=== PATIENT | male | born 1980 | race Caucasian/White ===

== ENCOUNTER 2019-08-17 08:02 | Emergency (ER) | payer OTHER, SELFPAY ==
[2019-08-17 08:08] VITALS: BP 132/89; PULSE 102; RESP 18; TEMP 36.6; O2SAT 96
--- NOTE | 2019-08-17 09:10 | DI.US.S_ITS ---
PROCEDURE: US SCROTUM INDICATIONS: RIGHT TESTICULAR PAIN TECHNIQUE: Real-time scanning was performed of the scrotum and testicles, with image documentation. Color and pulse Doppler interrogation was performed of both testicles. COMPARISON: None. FINDINGS: Right: Testicle is normal in size at 5 x 2.7 x 3.4 cm, and homogenous in echotexture. Numerous punctate calcifications are seen scattered in right testes. Epididymis is normal in overall size and morphology. There is small right hydrocele. No varicoceles. Overlying scrotal skin is normal in thickness. Left: Testicle is normal in size at 4.8 x 2.8 x 3.7 cm, and homogeneous in echotexture. Numerous punctate calcifications are also noted scattered in the left testicular parenchyma. Epididymis is normal in overall size and morphology. There is small left hydrocele. No varicoceles. Overlying scrotal skin is normal in thickness. Doppler: Color and pulse Doppler demonstrate normal and symmetric arterial flow in both testicles. IMPRESSION: 1. No evidence of testicular torsion. No solid-appearing testicular lesion. 2. Small to moderate amount of bilateral hydrocele. 3. Tiny punctate calcifications scattered in bilateral testicular parenchyma. Finding may indicate prior infection/injury. Dictated by: Won Diaz M.D. on 08/17/2019 at 9:54 Approved by: Won Diaz M.D. on 08/17/2019 at 10:05
--- NOTE | 2019-08-17 09:15 | ED.ABDPAIN ---
HPI - Abdominal Pain General Chief Complaint: Abdominal Pain Stated Complaint: groin/abdominal pain Time Seen by Provider: 08/17/19 08:10 Source: patient Mode of arrival: Ambulatory History of Present Illness HPI narrative: Patient comes emergency department complaining of right inguinal pain. He states this has been creeping up again over the last couple of weeks, he has had a prior hernia repair on that side. Patient states that he does work out, and that he has some degree of lifting at his job. However, he has not done more of any of this than he usually would. Patient denies other symptoms of illness. No diarrhea, dysuria, fevers, nausea, vomiting, or blood in stools. No blood in his urine. No back pain. No other complaints at this time. Related Data Home Medications Medication Instructions Recorded Confirmed lisinopril 10 mg PO QDAY #0 tab 07/13/16 ranitidine HCl 150 mg PO BID #0 cap 07/24/16 duloxetine [Cymbalta] 20 mg PO DAILY #0 01/04/17 08/17/19 cholecalciferol (vitamin D3) #0 02/08/17 [Vitamin D3] Allergies Allergy/AdvReac Type Severity Reaction Status Date / Time tramadol [TRAMADOL] Allergy Unknown Nightmare Unverified 08/17/19 08:12 Review of Systems Constitutional Constitutional: Denies chills, Denies fatigue, Denies fever(s), Denies frequent falls, Denies lethargy and Denies weakness Eyes Eyes: Denies change in vision, Denies eye discharge, Denies irritation and Denies loss of vision ENT Ears, Nose, Mouth, and Throat: Denies change in voice, Denies dizziness, Denies neck pain, Denies sore throat and Denies throat swelling Cardiovascular Cardiovascular: Denies chest pain, Denies irregular heart rhythm, Denies lightheadedness, Denies palpitations, Denies dyspnea, Denies dyspnea on exertion and Denies orthopnea Respiratory Respiratory: Denies cough, Denies dyspnea, Denies dyspnea on exertion and Denies wheezing Gastrointestinal Gastrointestinal: Denies abdominal pain, Denies change in bowel habits, Denies diarrhea, Denies nausea and Denies vomiting Genitourinary Genitourinary: Denies hematuria, Denies flank pain, Reports scrotal swelling (Chronic), Denies urinary incontinence and Denies urinary urgency Comments: Right testicular pain Musculoskeletal Musculoskeletal: Denies back pain, Denies muscle weakness, Denies neck pain, Denies numbness and Denies tingling Integumentary/Breasts Skin/Breast: Denies pruritus, Denies erythema, Denies rash and Denies wounds Neurologic Neurologic: Denies behavioral changes, Denies confusion, Denies dizziness, Denies frequent falls, Denies loss of vision, Denies numbness, Denies tingling and Denies weakness Psychiatric Psychiatric: Denies anxiety, Denies behavioral changes, Denies confusion, Denies depression, Denies homicidal ideation and Denies suicidal ideation Endocrine Endocrine: Denies fatigue, Denies flushing and Denies palpitations Hematologic/Lymphatic Hematologic/Lymphatic: Denies easy bruising Allergic/Immunologic Allergic/Immunologic: Denies urticaria, Denies throat swelling and Denies wheezing Patient History Medical History (Updated 08/17/19 @ 11:13 by Zahra Young MD) Back pain (Acute) Cervical strain, acute (Inactive) Hydrocele (Acute) Inguinal hernia recurrent unilateral (Acute) Neck pain, musculoskeletal (Acute) Prostatitis (Acute) Right epididymitis (Acute) RLQ abdominal pain (Acute) Rupture of left tympanic membrane (Inactive) Testicular pain, right (Acute) Surgical History H/O hernia repair (Acute) Social History Smoking Status: Former smoker tobacco type: vaping Substance Use Type: marijuana Exam Initial Vital Signs Initial Vital Signs: Vital Signs Temperature 97.8 F 08/17/19 08:08 Pulse Rate 102 H 08/17/19 08:08 Respiratory Rate 18 08/17/19 08:08 Blood Pressure 132/89 08/17/19 08:08 Pulse Oximetry 96 08/17/19 08:08 Const General: cooperative and well developed Nutritional Appearance: well nourished Orientation: alert, awake, oriented x3 and not confused [facility] Head: normocephalic and atraumatic Ears: external ears normal Nose: external nose normal and No nasal discharge Face and sinus: face symmetric and No dry mucous membranes Mouth: oral mucosae normal and moist mucous membranes Teeth and gingiva: dentition normal Eyes General: appearance normal, both eyes and all related structures Eyelids: eyelids normal Conjunctivae: conjunctivae normal Sclera: sclerae normal Pupils: PERRL EOM: EOM intact bilaterally Neck Neck: normal visual inspection, trachea midline, No lymphadenopathy, No midline deformity and No JVD Lymphatic: No lymphedema Chest Chest: normal inspection of the chest Resp Effort & Inspection: normal respiratory effort, able to speak in complete sentences, no respiratory distress and no use of accessory muscles Auscultation: clear to auscultation bilaterally, no rales, no rhonchi and no wheezes Cardio Rate: regular rate Rhythm: regular rhythm Heart Sounds: no click, no gallops, no murmurs and no rubs Pulses: normal peripheral pulses GI Inspection: non-distended Palpation: soft, no hepatosplenomegaly, No guarding, No pulsatile mass and No tender Auscultation: normal bowel sounds Back/Spine/Pelvis Back: No CVA tenderness Cervical Spine: cervical ROM normal and No pain with cervical ROM Thoracic/Lumbar Spine: thoracic and lumbar spine normal to inspection Skin General: no rashes or lesions noted, No jaundice and No petechiae Neuro General: alert, oriented x3, gait normal and no focal motor deficits Speech: speech normal Extrem General: full ROM, no clubbing, cyanosis or edema, no pedal edema and no calf tenderness Psych Appearance: well kempt Mental Status: mental status grossly normal Attitude: cooperative Thought Content: normal and suicidality Judgment: judgment good Course Course Course Narrative: Patient was evaluated in the emergency department with urinalysis and with an ultrasound of his scrotum/testicles. This did show hydrocele and varicocele without evidence of a hernia. I did discuss with the patient that at this point in time there is no evidence of an active hernia. However, it is possible that the fibers are tearing in that he is in the early stages of reforming a hernia. The best approach at this point is for the patient to avoid heavy lifting or straining the area. I have discussed with him that it is possible that the inflammation will down that the fibers will heal. However, if his symptoms continue to get worse, or he begins noting swelling or bulging, he should follow up with surgery, whose contact information I have given him. Orders Ordered: ED Orders 08/17/19 09:10 US scrotum Stat Vital Signs Vital signs: Vital Signs - 8 hr 08/17/19 08:08 Temperature 97.8 F Pulse Rate 102 H Respiratory Rate 18 Blood Pressure 132/89 Pulse Oximetry 96 MDM - Abdominal Pain Medical Records Attestation: I reviewed the patient's medical records. Lab Data Attestation: I reviewed the patient's lab results. Point of care testing: Urine Dip Bedside Urine Glucose Negative Bedside Urine Bilirubin - Negative Bedside Urine Ketone - Negative Urine Specific Millis 1.020 Bedside Urine Occult Blood - Negative Bedside Urine pH 6.0 Bedside Urine Protein - Negative Bedside Urine Urobilinogen - Negative Bedside Urine Nitrite - Negative Bedside Urine Leukocytes - Negative Esterase Imaging Data Ultrasound scrotum: Radiologist's impression: ROCEDURE: US SCROTUM INDICATIONS: RIGHT TESTICULAR PAIN TECHNIQUE: Real-time scanning was performed of the scrotum and testicles, with image documentation. Color and pulse Doppler interrogation was performed of both testicles. COMPARISON: None. FINDINGS: Right: Testicle is normal in size at 5 x 2.7 x 3.4 cm, and homogenous in echotexture. Numerous punctate calcifications are seen scattered in right testes. Epididymis is normal in overall size and morphology. There is small right hydrocele. No varicoceles. Overlying scrotal skin is normal in thickness. Left: Testicle is normal in size at 4.8 x 2.8 x 3.7 cm, and homogeneous in echotexture. Numerous punctate calcifications are also noted scattered in the left testicular parenchyma. Epididymis is normal in overall size and morphology. There is small left hydrocele. No varicoceles. Overlying scrotal skin is normal in thickness. Doppler: Color and pulse Doppler demonstrate normal and symmetric arterial flow in both testicles. IMPRESSION: 1. No evidence of testicular torsion. No solid-appearing testicular lesion. 2. Small to moderate amount of bilateral hydrocele. 3. Tiny punctate calcifications scattered in bilateral testicular parenchyma. Finding may indicate prior infection/injury. Dictated by: Won Diaz M.D. on 08/17/2019 at 9:54 Approved by: Won Diaz M.D. on 08/17/2019 at 10:05 Discharge Plan Departure Patient Disposition: Home Clinical Impression: Bilateral hydrocele, Pain in right testicle Discharge Date/Time: 08/17/19 11:32 Instructions: DI for Testicular Pain, DI for Hydrocele-Adult Activity Restrictions/Additional Instructions: Your ultrasound shows bilateral hydroceles, but no current evidence of a hernia, and your testicles otherwise look good. There is no evidence of an infection at this time, either. Please follow up with Urology and General surgery for further evaluation your symptoms. Prescriptions: No Action lisinopril 10 MG tablet 10 mg PO QDAY Qty: 0 RF: 0 ranitidine HCl 150 MG capsule 150 mg PO BID Qty: 0 RF: 0 duloxetine [Cymbalta] 20 mg capsule,delayed release(DR/EC) 20 mg PO DAILY Qty: 0 RF: 0 cholecalciferol (vitamin D3) [Vitamin D3] 2,000 unit capsule Qty: 0 RF: 0 Referrals: Obed Marques [Primary Care Provider] -
--- NOTE | 2019-08-17 09:15 | PC.NURSE ---
stand by exam of scrotum. Tenderness with palpation of right testicle and scrotum. Some swelling noted.
[2019-08-17 10:18] VITALS: BP 122/78; PULSE 61; RESP 15; O2SAT 100
== END 2019-08-17 11:32 | disposition home or self-care (01) ==
PROVIDERS: Emergency Provider Emergency Medicine; Family Provider Physician Assistant; PCP Physician Assistant
DX: N43.3 Hydrocele, unspecified (principal); N50.811 Right testicular pain; Z98.890 Other specified postprocedural states
CPT/HCPCS: 76870; 81003; 99283

== ENCOUNTER 2019-11-09 18:23 | Emergency (ER) | payer OTHER, SELFPAY ==
[2019-11-09 18:41] VITALS: BP 136/75; PULSE 83; RESP 18; TEMP 36.4; O2SAT 99
--- NOTE | 2019-11-09 18:45 | DI.RAD.S_ITS ---
PROCEDURE: XR CHEST 2V INDICATIONS: cough for several weeks TECHNIQUE: 2 views of the chest were acquired. COMPARISON: None. FINDINGS: Surgical changes and devices: None. Lungs and pleura: Lungs are clear. No pleural effusions or pneumothorax. Mediastinum: Mediastinal contours are normal. Heart size is normal. Bones and chest wall: No suspicious bony abnormalities. Soft tissues appear unremarkable. IMPRESSION: No acute cardiopulmonary disease. Dictated by: Grey Olivares M.D. on 11/09/2019 at 19:30 Approved by: Grey Olivares M.D. on 11/09/2019 at 19:31
--- NOTE | 2019-11-09 19:29 | ED.URI ---
HPI - URI/Sore Throat <Tito GalvanangDimitri [facility] - Last Filed: 11/09/19 20:50> General Chief Complaint: Upper Respiratory Symptoms Stated Complaint: persistant cough Time Seen by Provider: 11/09/19 18:58 Source: patient Mode of arrival: Ambulatory Limitations: no limitations History of Present Illness HPI Narrative: This is a 27-year-old male, prior smoker, who presents to ED with chief complain of persistent coughing for last 10 days. Patient denies fever, chills, nausea or vomiting, chest pain or history of asthma or COPD in the past. Patient reports ill contact from his family member who are getting better with flu and denies recent foreign travel. Patient reports when he wakes up in the morning he has productive cough which clears up after this. Patient has occasional raspy, rattling in his chest with cough. Patient had used albuterol in the past but does not have asthma. Patient reports no problem with hydrating himself at this time. Patient also reports right upper arm discomfort after he donated plasma 9 days ago. Patient reports something went wrong at that time and had splashed blood from the IV site. Patient has been taking as needed ibuprofen and last dose was last night. Patient denies fever, chills, bruise, redness, swelling on affected side. Patient denies numbness/tingling on distal hand. Related Data Previous Rx's Medication Instructions Recorded albuterol sulfate 2 inhalation INHALATION Q4H PRN #1 11/09/19 each benzonatate [Tessalon Perles] 100 mg PO BID-TID PRN #14 cap 11/09/19 Review of Systems <GINNY HurleyP - Last Filed: 11/09/19 20:50> Review of Systems Narrative: General: Denies fever, chills, fatigue, malaise, sweats. HEENT: Denies sinus pain, ear pain, sore throat, difficulty swallowing, dizziness. Respiratory: See HPI Cardiovascular: Denies chest pain, palpitations, orthopnea, edema. Gastrointestinal: Denies nausea, vomiting, abdominal pain, diarrhea, constipation, melena. : Denies dysuria, frequency, incontinence, hematuria, urinary retention. Musculoskeletal: See HPI Skin: Denies rash, skin lesions, or other. Neurologic: Denies weakness, headache, numbness, change in speech, confusion, seizures, incoordination. Psychiatric: No concerning psychosocial issues. 12-point review of systems is negative except for those stated above. Patient History <Tito OlivierMARKEL Salvador - Last Filed: 11/09/19 20:50> Social History Smoking Status: Former smoker Smoking Status: Former smoker tobacco type: vaping Exam <MARKEL Hurley - Last Filed: 11/09/19 20:50> Narrative Exam Narrative: GEN: Alert, oriented x 3, well appearing and nourished, and in no acute distress. Head: Normal cephalic, atraumatic. No scalp or temporal tenderness, palpable mass or rash. EYES: Pupils are equal, round, and reactive to light and accommodation. Extraocular muscles are intact bilaterally. There is no subconjunctival hemorrhage, exudate and sclera non-icteric. ENT: Bilateral auditory canals and tympanic membranes clear. Hearing grossly intact. Nose without bleeding, purulent discharge or deviation. Facial sinuses nontender to palpate. Mucous membrane moist, no mucosal lesion. Throat without erythema, tonsillar hypertrophy or exudate. Uvula in midline, airway patent. Neck: Trachea in midline. No JVD, non-tender without lymphadenopathy. No masses or thyroid megaly. Supple, non-tender and no meningeal signs. CARDIAC: Normal regular rate and rhythm without murmurs, gallops, or rubs. No chest wall tenderness. No peripheral edema, cyanosis or pallor. Capillary refill is less than 2 seconds. RESPIRATORY: Lungs are clear to auscultate bilaterally. No cough, wheezes, rales, or rhonchi. No stridor, respiratory distress, increase work of breathing, or accessary muscle used. ABD: Abdomen soft, nontender and non-distended. No guarding or rebound tenderness to palpate. Bowel sounds are normal in all 4 quadrants. There is no palpable masses or organomegaly. EXT: Full painless ROM of all extremities with no loss of sensation, strength, effusion or edema. SKIN: Warm, dry, normal color for patient. No erythema, lesions or rash over visible areas. BACK: Nontender without deformity or crepitance. No flank tenderness. NEUROLOGICAL: Alert and oriented to place, time and person. Sensation and motor function intact bilaterally. No facial droops, dysphasia. PSYCHIATRIC: Good judgement and reason, without hallucinations, abnormal affect or abnormal behaviors during the examination. Patient is not suicidal. Initial Vital Signs Initial Vital Signs: Vital Signs Temperature 97.5 F L 11/09/19 18:41 Pulse Rate 83 11/09/19 18:41 Respiratory Rate 18 11/09/19 18:41 Blood Pressure 136/75 11/09/19 18:41 Pulse Oximetry 99 11/09/19 18:41 Extrem Right upper extremity: normal to inspection, full ROM, normal capillary refill and elbow/forearm Details: normal to inspection, tenderness, normal ROM, distal pulses intact and other (No erythema); no swelling, no unusual warmth and no ecchymosis; no edema <Darnell Marquis MD - Last Filed: 11/11/19 15:39> Initial Vital Signs Initial Vital Signs: Vital Signs Temperature 97.5 F L 11/09/19 18:41 Pulse Rate 83 11/09/19 18:41 Respiratory Rate 18 11/09/19 18:41 Blood Pressure 136/75 11/09/19 18:41 Pulse Oximetry 99 11/09/19 18:41 Scores <MARKEL Hurley - Last Filed: 11/09/19 20:50> GCS Ozzy coma scale eye opening: Spontaneous Ozzy coma scale verbal response: Orientated Ozzy coma scale motor response: Obey commands Ozzy coma scale total score: 15 Course <MARKEL Hurley - Last Filed: 11/09/19 20:50> Orders Ordered: ED Orders 11/09/19 18:45 Chest [XR chest 2V] Stat Vital Signs Vital signs: Vital Signs - 8 hr 11/09/19 18:41 Temperature 97.5 F L Pulse Rate 83 Respiratory Rate 18 Blood Pressure 136/75 Pulse Oximetry 99 <Darnell Marquis MD - Last Filed: 11/11/19 15:39> Orders Ordered: ED Orders 11/09/19 18:45 Chest [XR chest 2V] Stat Vital Signs Vital signs: Vital Signs - 8 hr 11/09/19 18:41 Temperature 97.5 F L Pulse Rate 83 Respiratory Rate 18 Blood Pressure 136/75 Pulse Oximetry 99 MDM - URI/Sore Throat <MARKEL Hurley - Last Filed: 11/09/19 20:50> Differential Diagnosis Differential diagnosis: Likely upper respiratory infection, viral infection, bronchitis and other (Pneumonia, right upper arm DVT, IV infiltration on right upper arm) Medical Records Attestation: I reviewed the patient's medical records. Imaging Data Chest x-ray: Radiologist's Impression: [address] [address] XRay Report Signed Patient: Doreen Hamilton#: [id number] : 11/02/1990Acct:[id number] Age/Sex: 29 / MDate of Service: 11/09/19 Loc: ED Accession Number: [id number] Procedure: XR chest 2V Ordering Provider: Darnell Marquis MD PROCEDURE: XR CHEST 2V INDICATIONS: cough for several weeks TECHNIQUE: 2 views of the chest were acquired. COMPARISON: None. FINDINGS: Surgical changes and devices: None. Lungs and pleura: Lungs are clear. No pleural effusions or pneumothorax. Mediastinum: Mediastinal contours are normal. Heart size is normal. Bones and chest wall: No suspicious bony abnormalities. Soft tissues appear unremarkable. IMPRESSION: No acute cardiopulmonary disease. Dictated by: Grey Olivares M.D. on 11/09/2019 at 19:30 Approved by: Grey Olivares M.D. on 11/09/2019 at 19:31 MDM Narrative Medical decision making narrative: Lung sounds are clear to auscultate without increased work of breathing, wheezing, taken panic. With O2 sat at 99% in room air. This is likely from viral bronchitis, URI symptoms. We discussed supportive care with increase hydration, rest and use albuterol inhaler 2 puffs as needed q.4 hours with chest tightness, wheezing, coughing fits and to use [id number] Mucinex for cough and to expectorated mucus as needed. Patient discharged to home with Tessalon perle to use at night it is as needed for cough and rest. Chest x-ray does not appreciate pneumonia acute cardiopulmonary disease. Right arm physical exam is unremarkable. There was no redness, strict, warmth appreciated. Good distal pulse in right radial. Patient has intact sensation and able to move her fingers without difficulty. Patient advised to use [id number] Tylenol and or Motrin as needed and use warm pack on affected site since this is likely due to IV infiltration during plasma donation 9 days ago. Return precautions were discussed with the patient and patient verbalized understanding and agrees with the treatment plan. Discharge Plan Departure Patient Disposition: Home Clinical Impression: Upper respiratory infection Qualifiers: URI type: unspecified URI Qualified Code(s): J06.9 - Acute upper respiratory infection, unspecified IV infiltrate Qualifiers: Encounter type: initial encounter Qualified Code(s): T80.1XXA - Vascular complications following infusion, transfusion and therapeutic injection, initial encounter Discharge Date/Time: 11/09/19 19:56 Instructions: DI for Viral Upper Respiratory Infection -- Adult, DI for Arm Pain Activity Restrictions/Additional Instructions: You have been diagnosed with [upper respiratory infection, likely viral bronchitis. Chest x-ray today does not appreciate pneumonia or acute cardiopulmonary disease. Your right upper arm pain is likely from IV infiltration during plasma donation 9 days ago.]. What to do: *Take your medications as directed. Please take albuterol 2 puffs every 4 hours as needed for chest tightness, frequent cough, wheezing. Please case picker [id number] Mucinex for cough and to expectorated mucus. Take Tessalon perles as needed at night for cough while at rest. Please use Tylenol and or Motrin as needed for right arm discomfort and warm pack to decrease inflammation. *Follow up with your primary care provider in 2-3 days, call for an appointment. Let them know you were seen in the ED and that we asked you to be seen in follow up. *Return to ED if you have any new, worsening, or concerning symptoms, such as [chest pain, breathing difficulty, fever, unable to tolerate fluids, increasing pain, increasing redness/warmth/swelling on right arm or any acute concerns]. Prescriptions: New albuterol sulfate 90 mcg/actuation aerosol powdr breath activated 2 inhalation INHALATION Q4H PRN (Reason: shortness of breath or wheezing) Qty: 1 RF: 0 benzonatate [Tessalon Perles] 100 mg capsule 100 mg PO BID-TID PRN (Reason: cough) Qty: 14 RF: 0 Referrals: [facility] [Outside]
== END 2019-11-09 19:56 | disposition home or self-care (01) ==
PROVIDERS: Emergency Provider Nurse Practitioner Family
DX: J06.9 Acute upper respiratory infection, unspecified (principal); T80.1XXA Vascular complications following infusion, transfusion and therapeutic injection, initial encounter
CPT/HCPCS: 71046; 99281; 99283

== ENCOUNTER 2020-03-06 20:23 | Emergency (ER) | payer OTHER, SELFPAY ==
[2020-03-06 20:32] VITALS: BP 151/85; PULSE 85; RESP 16; TEMP 36.4; O2SAT 97; BMI 24.7
[2020-03-06 21:49] VITALS: BP 122/84; PULSE 68; RESP 18; O2SAT 97
[2020-03-06] MEDS: TET,DIPH,PERTUSS(ACELL),VAC/PF 0.5 ML SYRINGE IM (21:55)
[2020-03-06] MEDS: BACITRACIN OINT 0.9 GM PCKT 4 APPLIC TOP (21:56)
[2020-03-06] MEDS: KETOROLAC 60 MG/2 ML VIAL IM (21:56)
[2020-03-06 22:09] VITALS: BP 126/79; PULSE 70; RESP 16; TEMP 36.4; O2SAT 96
--- NOTE | 2020-03-06 22:13 | ED_ITS ---
HPI - Burn/Smoke Inhalation General Chief complaint: Burn/Smoke Inhalation Stated complaint: burn right thigh with boiling water Time Seen by Provider: 03/06/20 20:25 Source: patient Mode of arrival: Ambulatory Limitations: no limitations History of Present Illness HPI Narrative: 39-year-old male former smoker with history of hypertension presents with a chief complaint of an accidental burn with hot water to his right anterior thigh. He was boiling water to cook some noodles when it spilled on his leg. The areas about the size of his hand and there was 1 blister that ruptured Related Data Home Medications Medication Instructions Recorded Confirmed lisinopril 10 mg PO QDAY #0 tab 07/13/16 ranitidine HCl 150 mg PO BID #0 cap 07/24/16 duloxetine [Cymbalta] 20 mg PO DAILY #0 01/04/17 08/17/19 cholecalciferol (vitamin D3) #0 02/08/17 [Vitamin D3] Previous Rx's Medication Instructions Recorded ketorolac 10 mg PO Q6H PRN #14 tab 03/06/20 Allergies Allergy/AdvReac Type Severity Reaction Status Date / Time tramadol [TRAMADOL] Allergy Unknown Nightmare Unverified 08/17/19 08:12 Review of Systems Constitutional Constitutional: Denies chills, Denies fatigue, Denies fever(s), Denies frequent falls, Denies lethargy and Denies weakness Eyes Eyes: Denies change in vision, Denies eye discharge, Denies irritation and Denies loss of vision ENT Ears, Nose, Mouth, and Throat: Denies change in voice, Denies dizziness, Denies neck pain, Denies sore throat and Denies throat swelling Cardiovascular Cardiovascular: Denies chest pain, Denies irregular heart rhythm, Denies lightheadedness, Denies palpitations, Denies dyspnea, Denies dyspnea on exertion and Denies orthopnea Respiratory Respiratory: Denies cough, Denies dyspnea, Denies dyspnea on exertion and Denies wheezing Gastrointestinal Gastrointestinal: Denies abdominal pain, Denies change in bowel habits, Denies diarrhea, Denies nausea and Denies vomiting Musculoskeletal Musculoskeletal: Denies neck pain and Denies numbness Integumentary/Breasts Skin/Breast: Denies pruritus, Denies erythema, Denies rash, Reports skin pain and Denies wounds Neurologic Neurologic: Denies behavioral changes, Denies confusion, Denies dizziness, Den ies frequent falls, Denies loss of vision, Denies numbness and Denies weakness Psychiatric Psychiatric: Denies anxiety, Denies behavioral changes, Denies confusion, Denies depression, Denies homicidal ideation and Denies suicidal ideation Endocrine Endocrine: Denies fatigue, Denies flushing and Denies palpitations Hematologic/Lymphatic Hematologic/Lymphatic: Denies easy bruising Allergic/Immunologic Allergic/Immunologic: Denies urticaria, Denies throat swelling and Denies wheezing Patient History Medical History Back pain (Acute) Cervical strain, acute (Inactive) Hydrocele (Acute) Inguinal hernia recurrent unilateral (Acute) Neck pain, musculoskeletal (Acute) Prostatitis (Acute) Right epididymitis (Acute) RLQ abdominal pain (Acute) Rupture of left tympanic membrane (Inactive) Testicular pain, right (Acute) Surgical History H/O hernia repair (Acute) Social History Smoking Status: Former smoker Smoking Status: Former smoker tobacco type: vaping Substance Use Type: marijuana Exam Narrative Exam Narrative: GENERAL: [39] year old patient appears stated age. Well- nourished, well-developed patient, in mild distress. HEAD: Atraumatic. Normocephalic. EYES: Pupils equal round and reactive. Extraocular motions intact. No scleral icterus. No injection or drainage. ENT: Nose without bleeding, purulent drainage. Throat without erythema, tonsillar hypertrophy or exudate. Airway patent. NECK: Trachea midline. Non tender CARDIOVASCULAR: Regular rate and rhythm without murmurs, gallops, or rubs. RESPIRATORY: Clear to auscultation. Breath sounds equal bilaterally. No wheezes, rales, or rhonchi. GASTROINTESTINAL: Abdomen soft, non-tender, nondistended. EXTREMITIES: No edema or joint tenderness. BACK: Nontender without deformity or crepitance. No flank tenderness. NEURO: AOx3. SKIN: 4 x 8 cm area of superficial partial-thickness burn to anterior thigh. One spontaneously ruptured bulla. No perineal involvement Initial Vital Signs Initial Vital Signs: Vital Signs Temperature 97.5 F L 03/06/20 20:32 Pulse Rate 85 03/06/20 20:32 Respiratory Rate 16 03/06/20 20:32 Blood Pressure 151/85 H 03/06/20 20:32 Pulse Oximetry 97 03/06/20 20:32 Course Orders Ordered: Discontinued Medications Bacitracin (Bacitracin) 4 applic TOP NOW ONE Stop: 03/06/20 21:48 Last Admin: 03/06/20 21:56 Dose: 4 applic Documented by: ANNABELLE Diphtheria/Tetanus/Acell Pertussis (Adacel) 0.5 ml IM .ONCE ONE Stop: 03/06/20 21:45 Last Admin: 03/06/20 21:55 Dose: 0.5 ml Documented by: ANNABELLE Ketorolac Tromethamine (Toradol) 60 mg IM NOW ONE Stop: 03/06/20 21:45 Last Admin: 03/06/20 21:56 Dose: 60 mg Documented by: ANNABELLE Vital Signs Vital signs: Vital Signs - 8 hr 03/06/20 20:32 03/06/20 21:49 Temperature 97.5 F L Pulse Rate 85 68 Respiratory Rate 16 18 Blood Pressure 151/85 H Blood Pressure [Right Arm] 122/84 Pulse Oximetry 97 97 Discharge Plan Departure Patient Disposition: Home Clinical Impression: 2nd deg burn leg Qualifiers: Encounter type: initial encounter Laterality: right Qualified Code(s): T24.201A - Burn of second degree of unspecified site of right lower limb, except ankle and foot, initial encounter Discharge Date/Time: 03/06/20 22:09 Instructions: DI for Nair Activity Restrictions/Additional Instructions: *You have been diagnosed with [1st and second-degree nair to right anterior] *What to do: *Take medications as directed *Follow up with your primary care provider in 2-3 days, call for an appointment. Let them know you were seen in the Emergency Department and that we ask that you be seen in follow up *Return to ER if you should have any new, worsening or concerning symptoms Prescriptions: New ketorolac 10 mg tablet 10 mg PO Q6H PRN (Reason: pain) Qty: 14 RF: 0 No Action lisinopril 10 MG tablet 10 mg PO QDAY Qty: 0 RF: 0 ranitidine HCl 150 MG capsule 150 mg PO BID Qty: 0 RF: 0 duloxetine [Cymbalta] 20 mg capsule,delayed release(DR/EC) 20 mg PO DAILY Qty: 0 RF: 0 cholecalciferol (vitamin D3) [Vitamin D3] 2,000 unit capsule Qty: 0 RF: 0 Referrals: Obed Marques [Primary Care Provider] -
== END 2020-03-06 22:09 | disposition home or self-care (01) ==
PROVIDERS: Emergency Provider Emergency Medicine; Family Provider Physician Assistant; PCP Physician Assistant
DX: T24.201A Burn of second degree of unspecified site of right lower limb, except ankle and foot, initial encounter (principal); Y27.2XXA Contact with hot fluids, undetermined intent, initial encounter; I10 Essential (primary) hypertension; Z23 Encounter for immunization
CPT/HCPCS: 90471; 96372; 99283; 90715; J1885

== ENCOUNTER → 2020-11-07 14:01 | Outpatient (CLI) | payer OTHER, SELFPAY ==
--- NOTE | 2020-11-07 14:03 | DI.RAD.S_ITS ---
PROCEDURE: XR SHOULDER RT MIN 2V INDICATIONS: Right shoulder and low back pain TECHNIQUE: 3 views of the shoulder were acquired. COMPARISON: None. FINDINGS: Bones: No acute fractures or dislocations. No suspicious bony lesions. Visualized ribs appear intact. Mild acromioclavicular joint osteoarthrosis is present. Soft tissues: No suspicious soft tissue calcifications. IMPRESSION: No acute osseous abnormality. If the symptoms persist with conservative management, consider cross sectional imaging such as CT or MRI for further assessment. Dictated by: Giorgio Pineda M.D. on 11/07/2020 at 16:06 Approved by: Giorgio Pineda M.D. on 11/07/2020 at 16:06
--- NOTE | 2020-11-07 14:03 | DI.RAD.S_ITS ---
PROCEDURE: XR LUMBAR SPINE 2-3V INDICATIONS: Right shoulder and low back pain TECHNIQUE: 2 views of the lumbar spine were acquired. COMPARISON: None. FINDINGS: Bones: 5 [id number] vertebrae are present. There is trace levoconvex curvature of the lumbar spine. No vertebral body compression fractures. No suspicious bony lesions. Minimal degenerative endplate changes and facet hypertrophy are seen. Soft tissues: Overlying bowel gas pattern is normal. No suspicious soft tissue calcifications. IMPRESSION: Trace levoconvex curvature of the lumbar spine with minimal spondylosis. Dictated by: Giorgio Pineda M.D. on 11/07/2020 at 16:07 Approved by: Giorgio Pineda M.D. on 11/07/2020 at 16:08
== END ==
PROVIDERS: PCP Family Medicine; Referring Provider Family Medicine; Visit Provider Family Medicine
DX: M25.511 Pain in right shoulder (principal); M19.011 Primary osteoarthritis, right shoulder; M54.5 Low back pain
CPT/HCPCS: 72100; 73030

== ENCOUNTER 2021-01-31 18:32 | Emergency (ER) | payer OTHER, SELFPAY ==
--- NOTE | 2021-01-31 18:44 | ED_ITS ---
HPI - Abdominal Pain General Chief Complaint: Abdominal Pain Stated Complaint: RIGHT SIDE PAIN WHERE HERNIA SURGERY WAS Time Seen by Provider: 01/31/21 18:41 Source: patient Mode of arrival: Ambulatory Limitations: no limitations History of Present Illness HPI narrative: 40-year-old male nonsmoker with history of hypertension and right inguinal hernia surgery a few years ago presents with a chief complaint of wors ening pain underlying his incision site over the past few days. He denies any heavy lifting, straining on the toilet or other obvious potential causes but does state that his pain seems to be worse when he stands up and improves when he sits down. He has no testicular or scrotal pain He has had no fever chills nor nausea or vomiting. He denies any straining on the toilet nor constipation or diarrhea. He has no dysuria, frequency or urgency. MD complaint: abdominal pain Onset (ago): day(s) Pain Consistency: intermittent Location: RLQ Severity: moderate Quality: sharp Related Data Home Medications Medication Instructions Recorded Confirmed lisinopril 10 mg PO QDAY #0 tab 07/13/16 ranitidine HCl 150 mg PO BID #0 cap 07/24/16 duloxetine [Cymbalta] 20 mg PO DAILY #0 01/04/17 08/17/19 cholecalciferol (vitamin D3) #0 02/08/17 [Vitamin D3] Previous Rx's Medication Instructions Recorded ketorolac 10 mg PO Q6H PRN #14 tab 03/06/20 piroxicam 20 mg capsule 20 mg PO DAILY #30 cap 01/18/21 Allergies Allergy/AdvReac Type Severity Reaction Status Date / Time tramadol [TRAMADOL] Allergy Unknown Nightmare Verified 01/31/21 18:53 Review of Systems Constitutional Constitutional: Denies chills, Denies fatigue, Denies fever(s), Denies frequent falls, Denies lethargy and Denies weakness Eyes Eyes: Denies change in vision, Denies eye discharge, Denies irritation and Denies loss of vision ENT Ears, Nose, Mouth, and Throat: Denies change in voice, Denies dizziness, Denies neck pain, Denies sore throat and Denies throat swelling Cardiovascular Cardiovascular: Denies chest pain, Denies irregular heart rhythm, Denies lightheadedness, Denies palpitations, Denies dyspnea, Denies dyspnea on exertion and Denies orthopnea Respiratory Respiratory: Denies cough, Denies dyspnea, Denies dyspnea on exertion and Denies wheezing Gastrointestinal Gastrointestinal: Denies abdominal pain, Denies change in bowel habits, Denies diarrhea, Denies nausea and Denies vomiting Genitourinary Genitourinary: Reports as per HPI (Painful bulge and right groin), Denies scrotal swelling, Denies testicular mass and Denies testicular pain Genitourinary: Reports as per HPI (Painful bulge and right groin) Musculoskeletal Musculoskeletal: Denies neck pain and Denies numbness Integumentary/Breasts Skin/Breast: Denies pruritus, Denies erythema, Denies rash and Denies wounds Neurologic Neurologic: Denies behavioral changes, Denies confusion, Denies dizziness, Denies frequent falls, Denies loss of vision, Denies numbness and Denies weakness Psychiatric Psychiatric: Denies anxiety, Denies behavioral changes, Denies confusion, Denies depression, Denies homicidal ideation and Denies suicidal ideation Endocrine Endocrine: Denies fatigue, Denies flushing and Denies palpitations Hematologic/Lymphatic Hematologic/Lymphatic: Denies easy bruising Allergic/Immunologic Allergic/Immunologic: Denies urticaria, Denies throat swelling and Denies wheezing Patient History Medical History Back pain Cervical strain, acute Generalized anxiety disorder Hydrocele Inguinal hernia recurrent unilateral Lower back pain Neck pain, musculoskeletal Prostatitis Right epididymitis RLQ abdominal pain Rupture of left tympanic membrane Strain of tendon of left rotator cuff Testicular pain, right Surgical History H/O hernia repair Social History Smoking Status: Former smoker (Stopped ') Tobacco: How many years used: 14 quit status: quit date established alcohol intake: former (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 Extraoccular muscles are intact bilaterally. There is no subconjunctival hemorrhage or exudate. CHEST: Lungs are clear to auscultation bilaterally and free of wheezes, rales, or rhonchi. Heart rate is regular rhythm, there are no murmurs, clicks, rubs, or gallops. There is no chest wall tenderness. ABD: Abdomen is soft and nontender. There is no guarding or rebound. Bowel sounds are normal in all 4 quadrants. There is no mass or organomegaly. : Patient examined while standing, when he bears down or coughs there is a palpable bulge in the right groin that is easily reduced. There is no warmth or erythema. EXT: Full painless ROM of all extremities with no loss of sensation or strength. SKIN: Warm, pink, and dry. No erythema or rash Initial Vital Signs Initial Vital Signs: Vital Signs Temperature 97.3 F L 01/31/21 18:49 Pulse Rate 88 01/31/21 18:49 Respiratory Rate 14 01/31/21 18:49 Blood Pressure 128/84 01/31/21 18:49 Pulse Oximetry 98 01/31/21 18:49 Course Consultations Consultation #1: Discussed with on-call surgeon who recommends discharge with follow-up in the office and appropriate return precautions. No indication or need for imaging at this time Discharge Plan Departure Patient Disposition: Home Clinical Impression: Inguinal hernia Qualifiers: Obstruction and gangrene presence: without obstruction or gangrene Laterality: unilateral Recurrence: recurrent Qualified Code(s): K40.91 - Unilateral inguinal hernia, without obstruction or gangrene, recurrent Instructions: DI for Groin Hernia Activity Restrictions/Additional Instructions: *You have been diagnosed with [recurrent right inguinal hernia] *What to do: *Please continue to take your regular medications as directed. [ ] New medication prescriptions sent to your pharmacy: [ ] [ ] New medication written as a paper prescription [ x] No new medications given *Please follow up with your Dr. Nunez in 2-3 days, call for an appointment. Let them know you were seen in the Emergency Department and that we ask that you be seen in follow up. We will electronically transmit a record of today's note if your PCP is in our system *Please avoid heavy lifting. Try to not strain on the toilet, consider use of stool softeners *Return to Emergency Department if you should have any new, worsening or concerning symptoms, such as [fever greater than 101 F, shaking chills, worsening pain, persistent vomiting or other bothersome symptoms] Prescriptions: No Action lisinopril 10 MG tablet 10 mg PO QDAY Qty: 0 RF: 0 ranitidine HCl 150 MG capsule 150 mg PO BID Qty: 0 RF: 0 duloxetine [Cymbalta] 20 mg capsule,delayed release(DR/EC) 20 mg PO DAILY Qty: 0 RF: 0 cholecalciferol (vitamin D3) [Vitamin D3] 2,000 unit capsule Qty: 0 RF: 0 piroxicam [Feldene] 20 mg capsule 20 mg PO DAILY Qty: 30 RF: 1 ketorolac 10 mg tablet 10 mg PO Q6H PRN (Reason: pain) Qty: 14 RF: 0 Referrals: Pepe Nunez MD [Physician] - Anjel Orellana DO [Primary Care Provider] -
[2021-01-31 18:49] VITALS: BP 128/84; PULSE 88; RESP 14; TEMP 36.3; O2SAT 98; BMI 25.3
[2021-01-31 20:32] VITALS: BP 125/81; PULSE 75; RESP 16; O2SAT 97
== END 2021-01-31 20:39 | disposition home or self-care (01) ==
PROVIDERS: Emergency Provider Emergency Medicine; PCP Family Medicine
DX: K40.91 Unilateral inguinal hernia, without obstruction or gangrene, recurrent (principal)
CPT/HCPCS: 99281

== ENCOUNTER → 2021-02-20 09:13 | Outpatient (CLI) | payer OTHER, SELFPAY ==
[2021-02-20 10:22] LABS: COVID19 -Nasal RAPID Negative (Negative)
== END ==
PROVIDERS: PCP Family Medicine; Visit Provider Surgery
DX: Z20.822 Contact with and (suspected) exposure to COVID-19 (principal)
CPT/HCPCS: 87635; C9803

== ENCOUNTER 2021-02-21 06:28 | Day surgery (SDC) | payer OTHER, SELFPAY ==
[2021-02-17 13:23] VITALS: BMI 25.8
[2021-02-21] VITALS (11 sets, daily range): BP systolic 112–143; BP diastolic 68–88; PULSE 66–99; RESP 12–18; TEMP 36.5–36.8; O2SAT 97–100; BMI 25.8
[2021-02-21] MEDS: LACTATED RINGERS 1,000 ML 100 ML IV ×2 (07:15→09:08)
--- NOTE | 2021-02-21 07:29 | PM.PREOP ---
Pre-operative Note Interval Note History & Physical reviewed/Exam performed by Physician: Yes Changes to H&P: No
[2021-02-21] MEDS: CEFAZOLIN 1 GM VIAL 2 GM IV (08:15)
--- NOTE | 2021-02-21 08:35 | SUR.OPER ---
Supine on padded OR bed, head on pillow,bilateral arms padded and tucked at side, legs uncrossed, safety belt at thigh, tape over blanket over lower legs .
[2021-02-21] MEDS: BUPIVACAINE 0.25% (PF) VIAL 30 ML INJ (08:38)
[2021-02-21] MEDS: fentaNYL 100 MCG/2 ML INJ IV ×2 (09:44→10:00)
[2021-02-21] MEDS: ACETAMINOPHEN 325 MG TABLET 650 MG PO (09:46)
--- NOTE | 2021-02-21 09:46 | P.OP_ITS ---
Operative Date/Time/Diagnoses Date of procedure: 02/21/21 Time of procedure: 09:46 Pre-op diagnosis: Recurrent right inguinal hernia Post-op diagnosis: same Procedure & Clinicians Procedure: Laparoscopic transabdominal preperitoneal repair recurrent right inguinal hernia Same procedure as scheduled: Yes Indications: Recurrent right inguinal hernia prior open repair Surgeon: Pepe Nunez Anesthesia Type: General Operative Notes Findings: No right indirect hernia. Direct floor defect Specimen(s): none sent Estimated Blood Loss (mL): 30 Procedure in detail: The patient was brought to the operating room and placed supine on the table. Bilateral sequential compression devices were applied. General anesthesia was induced and they were intubated with an endotracheal tube. A baptiste cath was placed in sterile fashion. They received Ancef prior to skin incision. They were prepped and draped in sterile fashion. A time out was performed to ensure the correct patient, procedure and necessary equipment within the operating room. The skin was infiltrated with 0.25% bupivicaine. A 1 cm infram umbilical midline incision was made. The umbilical stalk was elevated the fascia sharply incised and the abdomen entered traumatically. A 10mm balloon port was placed and pneumoperitoneum was established at 15mm Hg. Inspection of the abdomen demonstrated no evidence of injury upon entry. Two 5 mm ports were then placed under direct visualization in the right and left lower quadrant lateral to the rectus muscle. A right direct hernia was observed. There was no major left inguinal hernia. The peritoneum 4 cm superior to the deep inguinal ring between the medial umbilical ligament and the anterior superior iliac spine was incised. The medial preperitoneal dissection was carried out into the space of Retzius bluntly, the bladder was swept inferiorly, the pubis and Jones's ligament were identified. Next attention was turned towards the lateral aspect of the peritoneal flap. The preperitoneal fat with the testicular vessels was carefully dissected off the inferior peritoneal flap. I inspected the cord structures there was no evidence of an indirect right inguinal hernia running along the cord. The attachements to the direct hernia sac were divided and the direct defect was reduced. A large Bard 3D Max mesh was then placed into the abdomen and positioned such that the myopectineal orifice was completely covered with good overlap on all sides. The mesh was anchored with tacks, one high medial, one hi gh lateral and one into Jones's ligament. The peritoneal flap was then repositioned back to its original position and tacks were used to anchor it in position such that no bowel could herniate into the preperitoneal space. The area was examined for hemostasis. The 5mm trocars were removed under direct visualization and pneumoperitoneum was deflated through the umbilical trocar, The fascia at the umbilicus was closed with 0-Vicryl in figure of 8 fashion, skin closed with 4-0 Monocyl followed by Dermabond. The sponge and instrument count at the end of the case was correct. Both testicles were entirely within the scrotum at the end of the case. The patient emerged from anesthsia was extubated and transferred to recovery in stable condition. Complications: none Post-operative Condition: stable Disposition: same day surgery
[2021-02-21] MEDS: OXYCODONE IR 5 MG TABLET PO ×2 (09:47→10:17)
== END 2021-02-21 10:50 | disposition home or self-care (01) ==
PROVIDERS: PCP Family Medicine; Referring Provider Family Medicine; Visit Provider Surgery
PROC: 0YQ54ZZ Repair Right Inguinal Region, Percutaneous Endoscopic Approach (ICD-10-PCS; CPT 49651; principal; 2021-02-21 07:45)
DX: K40.91 Unilateral inguinal hernia, without obstruction or gangrene, recurrent (principal); F43.10 Post-traumatic stress disorder, unspecified; F32.9 Major depressive disorder, single episode, unspecified; F41.9 Anxiety disorder, unspecified
CPT/HCPCS: 49651; 82962; C1781; J0690; J2250; J2405; J2704; J3010

== ENCOUNTER 2022-04-01 14:53 | Emergency (ER) | payer OTHER, SELFPAY ==
[2022-04-01 14:55] VITALS: BP 138/71; PULSE 83; RESP 14; TEMP 36.1; O2SAT 100; BMI 25.0
--- NOTE | 2022-04-01 15:15 | DI.CT.S_ITS ---
PROCEDURE: CT HEAD/BRAIN WO CON INDICATIONS: fall hit head with severe headache TECHNIQUE: Noncontrast 4.5 mm thick angled axial sections acquired from the foramen magnum to the vertex, with coronal and sagittal reformats. For radiation dose reduction, the following was used: automated exposure control, adjustment of mA and/or kV according to patient size. COMPARISON: None. FINDINGS: Image quality: Excellent. CSF spaces: Basal cisterns are patent. No extra-axial fluid collections. Ventricles are normal in size and shape. Brain: No midline shift. No intracranial masses or hemorrhage. Cameron-white matter interface is normal. Skull and face: Calvarium and visualized facial bones are intact, without suspicious lesions. Sinuses: Visualized sinuses and mastoids are clear. IMPRESSION: No acute intracranial abnormality. Dictated by: Portillo Gong M.D. on 04/01/2022 at 15:04 Approved by: Portillo Gong M.D. on 04/01/2022 at 15:05
--- NOTE | 2022-04-01 15:16 | ED.HEATRA ---
HPI - Head Injury General Chief complaint: Head Injury Stated complaint: roller bladding hit head-has headache Time Seen by Provider: 04/01/22 15:09 Source: patient Mode of arrival: Ambulatory Limitations: no limitations History of Present Illness HPI Narrative: Patient is a 41-year-old male. Last evening was skating backwards without wearing a helmet when he fell. He did hit his head. There was no loss of consciousness. He was somewhat dazed afterwards. Was tired afterwards and slept last evening. Has not had any vomiting. Woke up this morning and is having a headache. He took some Tylenol which only improved his symptoms small amount. He is not having any balance issues. No vision changes. He did drink some coffee this morning thinking that may help his headache as well but it did not. His headache has just worsened since waking up. Related Data Previous Rx's Medication Instructions Recorded piroxicam 20 mg capsule (Feldene) 20 mg PO DAILY #30 caps 01/18/21 acetaminophen 325 mg capsule 650 mg PO QID PRN pain #60 caps 02/21/21 (Tylenol) docusate sodium 100 mg capsule 100 mg PO BID #30 caps 02/21/21 (Colace) ibuprofen 200 mg tablet 400 mg PO Q6H #60 tabs 02/21/21 oxycodone 5 mg tablet 5 mg PO Q8H PRN pain #30 tabs 02/21/21 Allergies Allergy/AdvReac Type Severity Reaction Status Date / Time tramadol [TRAMADOL] Allergy Unknown Nightmare Verified 04/01/22 15:14 Review of Systems Constitutional Constitutional: Denies fever(s) and Reports headache(s) Eyes Eyes: Reports as per HPI and Reports system reviewed and no additional complaints, except as documented ENT Ears, Nose, Mouth, and Throat: Reports system reviewed and no additional complaints, except as documented, Reports as per HPI and Reports headache(s) Cardiovascular Cardiovascular: Reports system reviewed and no additional complaints, except as documented Respiratory Respiratory: Reports system reviewed and no additional complaints, except as documented Integumentary/Breasts Skin/Breast: Reports system reviewed and no additional complaints, except as documented Neurologic Neurologic: Reports headache(s) Hematologic/Lymphatic On Anticoagulants: No Patient History Medical History Anxiety Back pain Cervical strain, acute Depression Generalized anxiety disorder Hydrocele Inguinal hernia recurrent unilateral Lower back pain Neck pain, musculoskeletal Prostatitis PTSD (post-traumatic stress disorder) Right epididymitis RLQ abdominal pain Rupture of left tympanic membrane Strain of tendon of left rotator cuff Testicular pain, right Surgical History H/O hernia repair Family History Mother Diabetes mellitus Heart disease Father Diabetes mellitus Heart disease Social History marital status: household members: spouse and children occupational status: previously employed Smoking Status: Former smoker Tobacco: How many years used: 14 quit status: quit date established alcohol intake: former substance use type: does not use and marijuana Smoking Status: Former smoker tobacco type: vaping Substance Use Type: marijuana Exam Initial Vital Signs Initial Vital Signs: Vital Signs Temperature 97.0 F L 04/01/22 14:55 Pulse Rate 83 04/01/22 14:55 Respiratory Rate 14 04/01/22 14:55 Blood Pressure 138/71 04/01/22 14:55 Pulse Oximetry 100 04/01/22 14:55 Oxygen Delivery Method 04/01/22 14:55 Const General: cooperative, comfortable, well developed and well groomed HENFL Head: normal to inspection and normocephalic Ears: TM's normal bilaterally Face and sinus: normal facial exam Resp Effort & Inspection: normal respiratory effort Auscultation: clear to auscultation bilaterally Cardio Rate: regular rate Rhythm: regular rhythm Skin General: no rashes or lesions noted Neuro General: patient alert, patient awake and moves all extremities Extrem General: normal to inspection and capillary refill normal Scores [place] CT Head Rule Age <16 years old: No Patient on blood thinners: No Seizure after injury: No Exclusion: Patient NOT Excluded, Proceed to next steps GCS < 15 at 2 hr post trauma: No Suspected open or depressed skull fracture: No Any sign of basilar skull fracture (hemotympanum, raccoon eyes, Perdomo's sign, CSF isis-/rhinorrhea): No Two or more episodes of vomiting: No Age greater or equal to 65 years: No Retrograde amnesia to the event greater or equal to 30 min: No Dangerous Mechanism (pedestrian vs. mv, occupant ejected from mv, fall from >3 ft or > 5 stairs): No Recommendation: CT unnecessary Course Orders Ordered: ED Orders 04/01/22 15:15 CT head/brain wo con Stat Vital Signs Vital signs: Vital Signs - 8 hr 04/01/22 14:55 Temperature 97.0 F L Pulse Rate 83 Respiratory Rate 14 Blood Pressure 138/71 Pulse Oximetry 100 Oxygen Delivery Method Room Air MDM - Head Injury Imaging Data CT scan - head: Radiologist's Impression: [address] [address] [address] Scan Report Signed Patient: Tha Hamilton MR#: [id number] : 1980 Acct:[id number] Age/Sex: 41 / M Date of Service: 04/01/22 Loc: ED Accession Number: [id number] ?? Procedure: CT head/brain wo con Ordering Provider: Keny Andre D.O. PROCEDURE:? CT HEAD/BRAIN WO CON ? INDICATIONS:? fall hit head with severe headache ? TECHNIQUE:? Noncontrast 4.5 mm thick angled axial sections acquired from the foramen magnum to the vertex, with coronal and sagittal reformats.? For radiation dose reduction, the following was used:? automated exposure control, adjustment of mA and/or kV according to patient size.? ? COMPARISON:? None. ? FINDINGS:? Image quality:? Excellent.? ? CSF spaces:? Basal cisterns are patent.? No extra-axial fluid collections.? Ventricles are normal in size and shape.? ? Brain:? No midline shift.? No intracranial masses or hemorrhage.? Cameron-white matter interface is normal.? ? Skull and face:? Calvarium and visualized facial bones are intact, without suspicious lesions.? ? Sinuses:? Visualized sinuses and mastoids are clear.? ? IMPRESSION:? No acute intracranial abnormality. ? ? Dictated by: Portillo Gong M.D. on 04/01/2022 at 15:04 ? ? Approved by: Portillo Gong M.D. on 04/01/2022 at 15:05 [facility] Narrative Medical decision making narrative: Head CT is unremarkable. This was ordered secondary to what he describes as a severe headache which actually started earlier today approximately 12 hours after the initial event. GCS of 15. We did discuss closed head injuries. Discussed things he could try at home to help the symptoms. He does have Robaxin at home that he can take as needed. He was given return precautions and follow-up instructions. He expressed understanding and agreement. Discharge Plan Departure Patient Disposition: Home Clinical Impression: Concussion, Closed head injury Instructions: Concussion, DI for Closed Head Injury Activity Restrictions/Additional Instructions: You can eat like normal and sleep like normal. You can take Tylenol for headaches. You can also use the methocarbamol that you have at home for any muscle soreness. Contact your primary doctor for a follow-up. Return to the emergency department for any new or worsening symptoms. Prescriptions: No Action piroxicam [Feldene] 20 mg capsule 20 mg PO DAILY Qty: 30 1RF ibuprofen 200 mg tablet 400 mg PO Q6H Qty: 60 0RF docusate sodium [Colace] 100 mg capsule 100 mg PO BID Qty: 30 0RF oxycodone 5 mg tablet 5 mg PO Q8H PRN (Reason: pain) Qty: 30 0RF acetaminophen [Tylenol] 325 mg capsule 650 mg PO QID PRN (Reason: pain) Qty: 60 0RF Referrals: Anjel Orellana, [Primary Care Provider] -
== END 2022-04-01 16:21 | disposition home or self-care (01) ==
PROVIDERS: Emergency Provider Emergency Medicine; PCP Family Medicine
DX: S06.0X0A Concussion without loss of consciousness, initial encounter (principal); V00.121A Fall from non-in-line roller-skates, initial encounter
CPT/HCPCS: 70450; 99283

== ENCOUNTER 2022-06-10 08:15 | Emergency (ER) | payer OTHER, SELFPAY ==
[2022-06-10 08:28] VITALS: BP 141/78; PULSE 92; RESP 19; TEMP 36.2; O2SAT 97; BMI 26.4
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
--- NOTE | 2022-06-10 08:37 | DI.US.S_ITS ---
PROCEDURE: US SCROTUM INDICATIONS: RIGHT SCROTAL PAIN TECHNIQUE: Real-time scanning was performed of the scrotum and testicles, with image documentation. Color and pulse Doppler interrogation was performed of both testicles. COMPARISON: [facility], , US SCROTUM, 08/17/2019, 9:29. FINDINGS: Right: Testicle is normal in size at 5.2 x 2.9 x 3.4 cm, and homogenous in echotexture. Scattered punctate calcifications are again seen in the right testicle. Epididymis is normal in overall size and morphology. Small right hydrocele. No varicocele. Overlying scrotal skin is normal in thickness. Left: Testicle is normal in size at 4.5 x 2.9 x 4.1 cm, and homogeneous in echotexture. Scattered punctate calcifications are again seen in the left testicle. Epididymis is normal in overall size and morphology. No hydrocele or varicoceles. Overlying scrotal skin is normal in thickness. Doppler: Color and pulse Doppler demonstrate normal and symmetric arterial flow in both testicles. IMPRESSION: 1. No sonographic signs of testicular torsion or epididymitis. 2. Small right hydrocele. 3. Multiple bilateral testicular microcalcifications are stable. Dictated by: Giorgio Pineda M.D. on 06/10/2022 at 8:41 Approved by: Giorgio Pineda M.D. on 06/10/2022 at 8:44
[2022-06-10 08:51] LABS: Appearance Urine UA CLEAR; Bilirubin Urine UA NEGATIVE (NEGATIVE); Color Urine UA YELLOW; Glucose Urine UA TRACE g/dL (Negative); Ketones Urine UA NEGATIVE (NEGATIVE); Leukocyte Esterase Urine UA NEGATIVE (NEGATIVE); Nitrite Urine UA NEGATIVE (Negative); Occult Blood Urine UA TRACE-INTACT (Negative); Protein Urine UA NEGATIVE (Negative); Specific Gravity Urine UA 1.015 (1.000-1.035); Urobilinogen Urine UA 0.2 E.U./dL (0.2); pH Urine UA 6.5 (4.5-8.0)
[2022-06-10 08:59] LABS: Bacteria Urine None Seen; Culture Indicated Urine Cult Not Indicated; RBC Urine None Seen (0-5/HPF); Squamous Epithelial Cell Urine None Seen (0-5/HPF); WBC Urine None Seen (0-5/HPF)
[2022-06-10] MEDS: ACETAMINOPHEN 325 MG TABLET 650 MG PO (09:15)
[2022-06-10 10:19] LABS: Urine N gonorrhoeae NOT DETECTED
[2022-06-10 10:27] LABS: Urine Chlamydia NOT DETECTED
== END 2022-06-10 11:00 | disposition home or self-care (01) ==
PROVIDERS: Emergency Provider Emergency Medicine; PCP Family Medicine
DX: N50.811 Right testicular pain (principal)
CPT/HCPCS: 76870; 81001; 87086; 87491; 87591; 93975; 99283

== ENCOUNTER 2022-07-27 14:03 | Emergency (ER) | payer OTHER, SELFPAY ==
[2022-07-27 14:22] VITALS: BP 134/77; PULSE 79; RESP 16; TEMP 36.6; O2SAT 99; BMI 26.4
== END 2022-07-27 15:32 | disposition left against medical advice (07) ==
PROVIDERS: Emergency Provider Emergency Medicine; PCP Family Medicine
CPT/HCPCS: 99281

== ENCOUNTER 2022-07-27 19:18 | Emergency (ER) | payer OTHER, SELFPAY ==
[2022-07-27 19:28] VITALS: BP 131/88; PULSE 94; RESP 18; TEMP 36.6; O2SAT 96
--- NOTE | 2022-07-27 20:14 | ED_ITS ---
HPI - Headache General Chief Complaint: Ear Stated Complaint: Head pressure Time Seen by Provider: 07/27/22 20:04 Mode of arrival: Ambulatory History of Present Illness HPI Narrative: Patient complains of generalized headache with pressure radiating outward. It i s global in. Occasional nausea and vomiting. No light or sound sensitivity. In addition he states distal triggered with his left ear tinnitus ranging up very high levels. He has problems with tinnitus. History of childhood left tympanic membrane perforation. That is healed. No discharge from the ear. Patient denies any numbness tingling or weakness. Patient states he has history of migraines but this is a little bit different meaning that tinnitus is not usually associated with it. Location is the same. Quality is the same. No altered mental status no facial droop no weakness of the limbs. No recent illness fever chills cough cold or congestion. Patient states [place] smoke in the air has made his migraines worse. Steady self gait from waiting room to his room. Related Data Home Medications Medication Instructions Recorded Confirmed meloxicam 7.5 mg tablet 7.5 mg PO DAILY pain 07/27/22 07/27/22 Allergies Allergy/AdvReac Type Severity Reaction Status Date / Time tramadol [TRAMADOL] AdvReac Unknown Nightmare Verified 07/27/22 14:24 Review of Systems Review of Systems Narrative: GENERAL: Denies chills, fatigue, malaise, fever, sweats. HEENT: Denies sinus pain, ear pain, sore throat, positive tinnitus RESPIRATORY: Denies dyspnea, cough CARDIOVASCULAR: Denies chest pain, palpitations GASTROINTESTINAL: Denies nausea, vomiting, abdominal pain : Denies dysuria, frequency, hematuria MUSCULOSKELETAL: denies muscle or bony pain SKIN: Denies rash, skin lesions NEUROLOGIC: Denies weakness, numbness, positive headache ROS Unobtainable: All systems reviewed & are unremarkable except as noted in HPI and below Patient History Medical History Anxiety Back pain Cervical strain, acute Change in facial mole Depression Generalized anxiety disorder Hydrocele Inguinal hernia recurrent unilateral Lower back pain Neck pain, musculoskeletal Prostatitis PTSD (post-traumatic stress disorder) Right epididymitis RLQ abdominal pain Rupture of left tympanic membrane Strain of tendon of left rotator cuff Testicular pain, right Surgical History H/O hernia repair Family History Mother Diabetes mellitus Heart disease Father Diabetes mellitus Heart disease Social History marital status: household members: spouse and children occupational status: previously employed Smoking Status: Former smoker Tobacco: How many years used: 14 quit status: quit date established alcohol intake: former substance use type: does not use and marijuana Smoking Status: Former smoker tobacco type: vaping alcohol intake frequency: 0-2 drinks per day Substance Use Type: marijuana Exam Narrative Exam Narrative: GENERAL: in no distress, not toxic not dyspneic HEAD: Normocephalic. EYES: Pupils equal round No scleral icterus. No photophobia no papilledema ENT: Mucous membranes moist. Bilateral tympanic membranes intact. No bulging erythema edema. No canal erythema edema. No discharge. NECK: Trachea midline. CARDIOVASCULAR: Regular rate and rhythm without murmurs RESPIRATORY: Clear to auscultation. Breath sounds equal bilaterally. No wheezes, rales, or rhonchi. GASTROINTESTINAL: Abdomen soft, non-tender EXTREMITIES: No gross deformities. BACK: No flank tenderness. NEURO: AOx4. Clear speech no facial droop light touch intact bilateral face hands with strong equal research physiologist. Negative pronator drift. SKIN: Warm and dry PSYCH: Not anxious, is cooperative Initial Vital Signs Initial Vital Signs: Vital Signs Temperature 97.9 F 07/27/22 19:28 Pulse Rate 94 H 07/27/22 19:28 Respiratory Rate 18 07/27/22 19:28 Blood Pressure 131/88 07/27/22 19:28 Pulse Oximetry 96 07/27/22 19:28 Oxygen Delivery Method 07/27/22 19:28 Course Course Course Narrative: No new issues during course of stay Orders Ordered: Discontinued Medications Sodium Chloride (Normal Saline 0.9%) 1,000 mls @ 1,000 mls/hr IV BOLUS ONE Stop: 07/27/22 21:10 Last Infusion: 07/27/22 21:32 Dose: 0 mls/hr Documented By: Admin: 07/27/22 20:34 Dose: 1,000 mls/hr Documented By: YOHAN Ketorolac Tromethamine (Ketorolac 30 Mg/Ml Vial) 15 mg IV NOW ONE Stop: 07/27/22 20:12 Last Admin: 07/27/22 20:34 Dose: 15 mg Documented By: YOHAN Metoclopramide HCl (Metoclopramide 10 Mg/2 Ml Inj) 10 mg IV NOW ONE Stop: 07/27/22 20:14 Last Admin: 07/27/22 20:34 Dose: 10 mg Documented By: YOHAN Reevaluation(s) Reevaluation #1: Patient states headache has nearly resolved. Tinnitus still present but feels much better and desires discharge home. Time: 21:34 Vital Signs Vital signs: Vital Signs - 8 hr 07/27/22 19:28 07/27/22 21:43 Temperature 97.9 F Pulse Rate 94 H 80 Respiratory Rate 18 18 Blood Pressure 131/88 126/78 Pulse Oximetry 96 98 Oxygen Delivery Method Room Air Room Air MDM - Headache Differential Diagnosis Differential diagnosis: Likely migraine, tension headache, subarachnoid hemorrhage, headache and other (Tinnitus) MDM Narrative Medical decision making narrative: Appropriate for discharge home. These 2 symptoms tinnitus and migraine headaches are not new. However they are coinciding for symptoms today. Conservative treatment essentially resolved the headache. No imaging or blood work indicated. Tinnitus is chronic and can be followed up with primary care. Patient agrees no blurred or imaging indicated. Feeling much better return precautions reviewed with him. He desires discharge home. His is driving. Discharge Plan Departure Patient Disposition: Home Clinical Impression: Headache, migraine, Tinnitus Instructions: DI for Migraine, DI for Tinnitus Activity Restrictions/Additional Instructions: See family doctor next week for re-evaluation. Return if worse if any questions or concerns. Keep well hydrated. Prescriptions: No Action meloxicam 7.5 mg Tablet 7.5 mg PO DAILY Referrals: Anjel Orellana DO [Primary Care Provider] - Visit Report Forms: Patient Portal/API
[2022-07-27] MEDS: KETOROLAC 30 MG/ML VIAL 15 MG IV (20:34)
[2022-07-27] MEDS: METOCLOPRAMIDE 10 MG/2 ML INJ IV (20:34)
[2022-07-27] MEDS: SODIUM CHLORIDE 0.9% 1,000 ML 1000 ML IV (20:34)
[2022-07-27 21:43] VITALS: BP 126/78; PULSE 80; RESP 18; O2SAT 98
== END 2022-07-27 21:44 | disposition home or self-care (01) ==
PROVIDERS: Emergency Provider Emergency Medicine; PCP Family Medicine
DX: G43.909 Migraine, unspecified, not intractable, without status migrainosus (principal); H93.12 Tinnitus, left ear; R11.2 Nausea with vomiting, unspecified
CPT/HCPCS: 36415; 96361; 96374; 96375; 99281; 99284; J1885; J2765

== ENCOUNTER 2022-07-29 10:17 | Emergency (ER) | payer OTHER, SELFPAY ==
[2022-07-29] VITALS (8 sets, daily range): BP systolic 128–154; BP diastolic 79–93; PULSE 68–95; RESP 14–26; TEMP 36.6; O2SAT 98–100; BMI 26.4
--- NOTE | 2022-07-29 13:29 | DI.CT.S_ITS ---
PROCEDURE: CT HEAD/BRAIN WO CON INDICATIONS: headache TECHNIQUE: Noncontrast 4.5 mm thick angled axial sections acquired from the foramen magnum to the vertex, with coronal and sagittal reformats. For radiation dose reduction, the following was used: automated exposure control, adjustment of mA and/or kV according to patient size. COMPARISON: [facility], CT, CT HEAD/BRAIN WO CON, 04/01/2022, 15:26. FINDINGS: Image quality: Excellent. CSF spaces: Basal cisterns are patent. No extra-axial fluid collections. Ventricles are normal in size and shape. Brain: No midline shift. No intracranial masses or hemorrhage. Cameron-white matter interface is normal. Skull and face: Calvarium and visualized facial bones are intact, without suspicious lesions. Sinuses: Visualized sinuses and mastoids are clear. IMPRESSION: No acute intracranial abnormality. Dictated by: Rocael Lemon M.D. on 07/29/2022 at 12:56 Approved by: Rocael Lemon M.D. on 07/29/2022 at 12:58
--- NOTE | 2022-07-29 13:30 | ED_ITS ---
HPI - Headache General Chief Complaint: Headache Stated Complaint: pressure in head, tinitus, D, ear pain here on Fri Time Seen by Provider: 07/29/22 12:09 Mode of arrival: Ambulatory History of Present Illness HPI Narrative: 41-year-old male former smoker with history of remote TBI and migraines presents for evaluation of ongoing right frontal headache for the past week he states it was initially rather gradual in its onset for the first 5 days or so and ramped up significantly on Saturday. He states walking seemed to make it worse but denies other obvious provocation, palliation or radiation. He denies any trauma or injury. He is had no fever or chills and denies any neck pain. He denies blurred vision, trouble speech nor extremity numbness, tingling or weakness. Related Data Home Medications Medication Instructions Recorded Confirmed meloxicam 7.5 mg tablet 7.5 mg PO DAILY pain 07/27/22 07/27/22 Allergies Allergy/AdvReac Type Severity Reaction Status Date / Time tramadol [TRAMADOL] AdvReac Unknown Nightmare Verified 07/27/22 14:24 Review of Systems Review of Systems Narrative: GENERAL: See HPI HEENT: See HPI RESPIRATORY: See HPI CARDIOVASCULAR: Denies chest pain, palpitations, orthopnea, edema, GASTROINTESTINAL: Denies nausea, vomiting, abdominal pain, diarrhea, constipation, melena. : Denies dysuria, frequency, incontinence, hematuria, urinary retention. MUSCULOSKELETAL: denies weakness, joint pain, or bony pain SKIN: Denies rash, skin lesions, or other NEUROLOGIC: See HPI PSYCHIATRIC: No concerning psychosocial issues. 12 point review of systems is negative except for those stated above Patient History Medical History Anxiety Back pain Cervical strain, acute Change in facial mole Depression Generalized anxiety disorder Hydrocele Inguinal hernia recurrent unilateral Lower back pain Neck pain, musculoskeletal Prostatitis PTSD (post-traumatic stress disorder) Right epididymitis RLQ abdominal pain Rupture of left tympanic membrane Strain of tendon of left rotator cuff Testicular pain, right Surgical History H/O hernia repair Family History Mother Diabetes mellitus Heart disease Father Diabetes mellitus Heart disease Social History (Reviewed 07/29/22 @ 15:00 by MINESH Zhu marital status: household members: spouse and children occupational status: previously employed Smoking Status: Former smoker Tobacco: How many years used: 14 quit status: quit date established alcohol intake: former substance use type: does not use and marijuana Smoking Status: Former smoker tobacco type: vaping alcohol intake frequency: 0-2 drinks per day Substance Use Type: marijuana Exam Narrative Exam Narrative: GENERAL: [41] year old patient appears stated age. Well-developed patient, in mild distress. HEAD: Atraumatic. Normocephalic. EYES: Pupils equal round and reactive. Extraocular motions intact. No scleral icterus. No injection or drainage. ENT: Nose without bleeding, purulent drainage. Throat without erythema, tonsillar hypertrophy or exudate. Airway patent. NECK: Trachea midline. Non tender CARDIOVASCULAR: Regular rate and rhythm without murmurs, gallops, or rubs. RESPIRATORY: Clear to auscultation. Breath sounds equal bilaterally. No wheezes, rales, or rhonchi. GASTROINTESTINAL: Abdomen soft, non-tender, nondistended. EXTREMITIES: No edema or joint tenderness. BACK: Nontender without deformity or crepitance. No flank tenderness. NEURO: AOx3. SKIN: No rash or erythema of visible areas NIH Stroke Scale 1a. LOC: Patient is alert and keenly responsive (0) 1b. LOC Questions: Patient answers both LOC questions accurately (0) 1c. LOC Commands: Patient performs both tasks correctly (0) 2. Best Gaze: Normal (0) 3. Visual: No visual loss (0) 4. Facial palsy: Normal symmetrical movements (0) 5. Motor arm: No drift (0) 6. Motor leg: No drift (0) 7. Limb ataxia: Absent (0) 8. Sensory: Normal (0) 9. Best language: No aphasia; normal (0) 10. Dysarthria: Normal (0) 11. Extinction and inattention: No abnormality (0) NIHSS: 0 Initial Vital Signs Initial Vital Signs: Vital Signs Temperature 97.9 F 07/29/22 10:43 Pulse Rate 95 H 07/29/22 10:43 Respiratory Rate 17 07/29/22 10:43 Blood Pressure 154/86 H 07/29/22 10:43 Pulse Oximetry 100 07/29/22 10:43 Oxygen Delivery Method 07/29/22 10:43 Course Orders Ordered: Discontinued Medications Dexamethasone (Dexamethasone 10 Mg/Ml Vial) 10 mg IV NOW ONE Stop: 07/29/22 13:29 Last Admin: 07/29/22 13:45 Dose: 10 mg Documented By: ANNALISA Diphenhydramine HCl (Diphenhydramine 50 Mg/Ml Vial) 25 mg IV NOW ONE Stop: 07/29/22 13:29 Last Admin: 07/29/22 13:45 Dose: 25 mg Documented By: ANNALISA Sodium Chloride (Normal Saline 0.9%) 1,000 mls @ 1,000 mls/hr IV BOLUS ONE Stop: 07/29/22 14:27 Last Infusion: 07/29/22 15:08 Dose: 0 mls/hr Documented By: Admin: 07/29/22 13:46 Dose: 1,000 mls/hr Documented By: ANNALISA Ketorolac Tromethamine (Ketorolac 30 Mg/Ml Vial) 15 mg IV NOW ONE Stop: 07/29/22 14:11 Last Admin: 07/29/22 14:27 Dose: 15 mg Documented By: ANNALISA Metoclopramide HCl (Metoclopramide 10 Mg/2 Ml Inj) 10 mg IV NOW ONE Stop: 07/29/22 13:29 Last Admin: 07/29/22 13:46 Dose: 10 mg Documented By: ANNALISA Reevaluation(s) Reevaluation #1: Patient has significant though not complete resolution symptoms with above- stated therapies. Vital Signs Vital signs: Vital Signs - 8 hr 07/29/22 10:43 07/29/22 13:15 07/29/22 13:16 Temperature 97.9 F Pulse Rate 95 H 90 82 Respiratory Rate 17 18 14 Blood Pressure 154/86 H Pulse Oximetry 100 98 100 Oxygen Delivery Method Room Air 07/29/22 13:16 07/29/22 13:30 07/29/22 13:30 Temperature Pulse Rate 84 Respiratory Rate 26 H Blood Pressure 149/88 H 128/87 Pulse Oximetry 100 Oxygen Delivery Method MDM - Headache Lab Data Result diagrams: 07/29/22 13:20 07/29/22 13:20 Labs: Lab Results 07/29/22 07/29/22 Range/Units 13:20 13:20 WBC 9.8 (4.5-11.0) X10^3/uL RBC 5.08 (4.5-5.9) X10^6/uL Hgb 14.8 (13.5-17.5) g/dL Hct 43.3 (41-53) % MCV 85.2 (80-100) fL MCH 29.2 (26-34) PG MCHC 34.3 (30-36) % RDW 12.5 (11.6-14.8) % Plt Count 302 (150-400) X10^3/uL Neut % (Auto) 65.8 (50-75) % Lymph % (Auto) 27.4 (25-40) % Charles % (Auto) 4.9 (3-14) % Eos % (Auto) 1.5 L (2-4) % Baso % (Auto) 0.4 (0-2) % Neut # (Auto) 6500 (5935-2881) /uL Lymph # (Auto) 2700 (2658-2170) /uL Charles # (Auto) 500 (0-900) /uL Eos # (Auto) 100 (0-450) /uL Baso # (Auto) 0 (0-100) /uL Sodium 142 (137-145) mmol/L Potassium 3.6 (3.4-5.1) mmol/L Chloride 105 (98-107) mmol/L Carbon Dioxide 25 (22-32) mmol/L BUN 12 (9-20) mg/dL Creatinine 0.91 (0.66-1.25) mg/dL Estimated GFR > 60 (>60) mL/min BUN/Creatinine Ratio 13.2 (6-22) Glucose 102 H (70-100) mg/dL Calcium 9.1 (8.4-10.2) mg/dL Total Bilirubin 0.4 (0.2-1.3) mg/dL AST 29 (17-59) IU/L ALT 47 (<50) IU/L Alkaline Phosphatase 72 (38-126) U/L Total Protein 7.9 (6.3-8.2) g/dL Albumin 4.6 (3.5-5.0) g/dL Globulin 3.3 (1.7-4.1) g/dL Albumin/Globulin Ratio 1.4 (1.0-2.8) Imaging Data CT scan - head: Radiologist's Impression: [address] [address] [address] Scan Report Signed Patient: Mino Hamilton MR#: [id number] : 1980 Acct:[id number] Age/Sex: 41 / M Date of Service: 07/29/22 Loc: ED Accession Number: [id number] ?? Procedure: CT head/brain wo con Ordering Provider: Mehdi Rivera D.O. PROCEDURE:? CT HEAD/BRAIN WO CON ? INDICATIONS:? headache ? TECHNIQUE:? Noncontrast 4.5 mm thick angled axial sections acquired from the foramen magnum to the vertex, with coronal and sagittal reformats.? For radiation dose reduction, the following was used:? automated exposure control, adjustment of mA and/or kV according to patient size.? ? COMPARISON:? [facility], CT, CT HEAD/BRAIN WO CON, 04/01/2022, 15:26. ? FINDINGS:? Image quality:? Excellent.? ? CSF spaces:? Basal cisterns are patent.? No extra-axial fluid collections.? Ventricles are normal in size and shape.? ? Brain:? No midline shift.? No intracranial masses or hemorrhage.? Cameron-white matter interface is normal.? ? Skull and face:? Calvarium and visualized facial bones are intact, without suspicious lesions.? ? Sinuses:? Visualized sinuses and mastoids are clear.? ? IMPRESSION:? No acute intracranial abnormality. ? ? Dictated by: Rocael Lemon M.D. on 07/29/2022 at 12:56 ? ? Approved by: Rocael Lemon M.D. on 07/29/2022 at 12:58 MDM Narrative Medical decision making narrative: Headache considerations include, but not limited to: Subarachnoid hemorrhage, but unlikely as patient denies sudden onset of pain, not worst of life, or neck pain Meningitis considered, but thought unlikely given lack of Brudzinski's, Kernig's sign, altered mental status or fever Giant cell arteritis considered, but thought unlikely given lack of unilateral findings, pain in pentecostal, vision change HTN Emergency considered, but thought unlikely given normal vitals Other serious diagnoses considered unlikely given lack of red flag findings such as sudden onset, increasing frequency, immunocompromise, systemic signs (fever, chills, stiff neck, or rash), focal neurologic findings, trauma, blood thinners, etc. Return precautions given, questions answered to his apparent satisfaction Discharge Plan Departure Patient Disposition: Home Clinical Impression: Headache Instructions: DI for Headache Activity Restrictions/Additional Instructions: *You have been diagnosed with [ Headache ] as we discussed your history and physical exam as well as labs and imaging are very reassuring and there is no evidence of a significant or life-threatening cause of your symptoms that would require a specific or immediate intervention *What to do: *Take medications as directed *Follow up with your primary care provider in 2-3 days, call for an appointment. Let them know you were seen in the Emergency Department and that we ask that you be seen in follow up *Return to ER if you should have any new, worsening or concerning symptoms, such as [ fever > 101F, neck pain or stiffness, vomiting, confusion, seizure, focal weakness, vision change, speech deficit or other concerning symptoms ] Prescriptions: No Action meloxicam 7.5 mg Tablet 7.5 mg PO DAILY Referrals: Anjel Orellana DO [Primary Care Provider] - Visit Report Forms: Patient Portal/API
[2022-07-29] MEDS: diphenhydrAMINE 50 MG/ML VIAL 25 MG IV (13:45)
[2022-07-29] MEDS: DEXAMETHASONE 10 MG/ML VIAL IV (13:45)
[2022-07-29] MEDS: METOCLOPRAMIDE 10 MG/2 ML INJ IV (13:46)
[2022-07-29] MEDS: SODIUM CHLORIDE 0.9% 1,000 ML 1000 ML IV (13:46)
[2022-07-29 13:53] LABS: Add Manual Diff / Slide Review NO; Basophils Absolute Auto 0 /uL (0-100); Basophils Percent Auto 0.4 % (0-2); Eosinophils Absolute Auto 100 /uL (0-450); Eosinophils Percent Auto 1.5 % (2-4); Hematocrit 43.3 % (41-53); Hemoglobin 14.8 g/dL (13.5-17.5); Lymphocytes Absolute Auto 2700 /uL (1100-4500); Lymphocytes Percent Auto 27.4 % (25-40); Mean Corpuscular HGB Conc 34.3 % (30-36); Mean Corpuscular Hemoglobin 29.2 PG (26-34); Mean Corpuscular Volume 85.2 fL (80-100); Monocytes Absolute Auto 500 /uL (0-900); Monocytes Percent Auto 4.9 % (3-14); Neutrophils Absolute Auto 6500 /uL (1500-7000); Neutrophils Percent Auto 65.8 % (50-75); Platelet Count 302 X10^3/uL (150-400); Red Blood Cell Count 5.08 X10^6/uL (4.5-5.9); Red Cell Distribution Width 12.5 % (11.6-14.8); White Blood Cell Count 9.8 X10^3/uL (4.5-11.0)
[2022-07-29 14:02] LABS: Alanine Aminotransferase 47 IU/L (<50); Albumin 4.6 g/dL (3.5-5.0); Albumin Globulin Ratio 1.4 (1.0-2.8); Alkaline Phosphatase 72 U/L (38-126); Aspartate Aminotransferase 29 IU/L (17-59); BUN Creatinine Ratio 13.2 (6-22); Bilirubin Total 0.4 mg/dL (0.2-1.3); Blood Urea Nitrogen 12 mg/dL (9-20); Calcium 9.1 mg/dL (8.4-10.2); Carbon Dioxide 25 mmol/L (22-32); Chloride 105 mmol/L (98-107); Estimated Glomerular Filt Rate > 60 mL/min (>60); Globulin 3.3 g/dL (1.7-4.1); Glucose 102 mg/dL (70-100); HEMOLYSIS 16 (0-50); Potassium 3.6 mmol/L (3.4-5.1); Sodium 142 mmol/L (137-145); Total Protein 7.9 g/dL (6.3-8.2)
[2022-07-29] MEDS: KETOROLAC 30 MG/ML VIAL 15 MG IV (14:27)
== END 2022-07-29 15:14 | disposition home or self-care (01) ==
PROVIDERS: Emergency Provider Emergency Medicine; PCP Family Medicine
DX: R51.9 Headache, unspecified (principal)
CPT/HCPCS: 36415; 70450; 80053; 85025; 96361; 96374; 96375; 99284; J1100; J1200; J1885; J2765

== ENCOUNTER → 2023-03-12 08:21 | Outpatient (CLI) | payer OTHER, SELFPAY ==
[2023-03-12 09:36] LABS: Alanine Aminotransferase 81 IU/L (<50); Albumin 4.4 g/dL (3.5-5.0); Albumin Globulin Ratio 1.5 (1.0-2.8); Alkaline Phosphatase 66 U/L (38-126); Aspartate Aminotransferase 35 IU/L (17-59); BUN Creatinine Ratio 18.6 (6-22); Bilirubin Total 0.3 mg/dL (0.2-1.3); Blood Urea Nitrogen 18 mg/dL (9-20); Calcium 9.4 mg/dL (8.4-10.2); Carbon Dioxide 27 mmol/L (22-32); Chloride 105 mmol/L (98-107); Cholesterol 217 mg/dL (140-199); Estimated Glomerular Filt Rate > 60 mL/min (>60); Globulin 2.9 g/dL (1.7-4.1); Glucose 116 mg/dL (70-100); HDL Cholesterol 47 mg/dL (40-60); HEMOLYSIS < 15 (0-50); LDL Cholesterol Calculated 143 mg/dL (<100); Potassium 4.5 mmol/L (3.4-5.1); Sodium 141 mmol/L (137-145); Total Protein 7.3 g/dL (6.3-8.2); Triglycerides 137 mg/dL (35-150)
[2023-03-12 10:18] LABS: Influenza A - CEPHEID Flu A NEGATIVE (NEGATIVE); Influenza B - CEPHEID Flu B NEGATIVE (NEGATIVE); Respiratory Syncytial Virus Negative (Negative)
[2023-03-12 10:24] LABS: COVID-19 CEPHEID 4-PLEX PCR Negative (Negative)
[2023-03-13 03:15] LABS: Labcorp Hemoglobin (Hb) A1c 5.7 % (4.8-5.6)
[2023-03-16 14:20] LABS: Percent Free Testosterone 2.18 % (1.50-4.20); Testosterone Free 4.75 ng/dL (5.00-21.00); Testosterone Total 217.7 ng/dL (264.0-916.0)
== END ==
PROVIDERS: Physician Assistant; PCP Family Medicine; Referring Provider Family Medicine; Visit Provider Family Medicine
DX: Z00.00 Encounter for general adult medical examination without abnormal findings (principal); G47.30 Sleep apnea, unspecified; H91.90 Unspecified hearing loss, unspecified ear; N50.811 Right testicular pain; J06.9 Acute upper respiratory infection, unspecified
CPT/HCPCS: 0241U; 36415; 80053; 80061; 83036; 84402; 84403

== ENCOUNTER → 2023-04-22 10:29 | Outpatient (CLI) | payer OTHER, SELFPAY | PROVIDERS: PCP Family Medicine; Visit Provider Nurse Practitioner Family | DX: J02.9 Acute pharyngitis, unspecified (principal) | CPT/HCPCS: 87070 ==

== ENCOUNTER 2023-05-05 09:22 | Emergency (ER) | payer OTHER, SELFPAY ==
[2023-05-05 09:27] VITALS: BP 168/94; PULSE 97; RESP 18; TEMP 37.2; O2SAT 97; BMI 29.0
--- NOTE | 2023-05-05 09:51 | ED.GENADULT ---
HPI - General Adult General Chief complaint: Upper Respiratory Symptoms Stated complaint: sore throat, not getting better Time Seen by Provider: 05/05/23 09:45 Source: patient Mode of arrival: Ambulatory History of Present Illness HPI narrative: Patient is a 42 old otherwise healthy male who is here for evaluation of a sore throat. The symptoms have been going on for the past couple weeks. He has been seen at the walk-in clinic. He would a negative rapid strep and a mixed vanessa throat culture. He states that he had an episode last evening for he felt like something ?popped? in his throat and then he had increased pain afterwards. No problems breathing. It does hurt for him to swallow. No fevers. No runny nose. No ear pain. No cough. Related Data Home Medications Medication Instructions Recorded Confirmed meloxicam 15 mg tablet 15 mg PO DAILY 12/20/22 12/20/22 methocarbamol PO 12/20/22 12/20/22 Previous Rx's Medication Instructions Recorded dexamethasone 4 mg tablet 12 mg PO DAILY #3 tabs 05/05/23 Allergies Allergy/AdvReac Type Severity Reaction Status Date / Time tramadol [TRAMADOL] AdvReac Unknown Nightmare Verified 12/20/22 16:03 Review of Systems Constitutional Constitutional: Reports system reviewed and no additional complaints, except as documented ENT Ears, Nose, Mouth, and Throat: Reports system reviewed and no additional complaints, except as documented Respiratory Respiratory: Reports system reviewed and no additional complaints, except as documented Integumentary/Breasts Skin/Breast: Reports system reviewed and no additional complaints, except as documented Patient History Medical History Anxiety Back pain Cervical strain, acute Change in facial mole Depression Generalized anxiety disorder Hand tendinitis Hearing loss Hydrocele Inguinal hernia recurrent unilateral Lower back pain Neck pain, musculoskeletal Prostatitis PTSD (post-traumatic stress disorder) Right epididymitis RLQ abdominal pain Rupture of left tympanic membrane Sleep apnea Strain of tendon of left rotator cuff Testicular pain, right Surgical History H/O hernia repair Family History Mother Diabetes mellitus Heart disease Father Diabetes mellitus Heart disease Social History (Reviewed 05/05/23 @ 10:30 by MINESH Michael marital status: household members: spouse and children occupational status: previously employed Smoking Status: Former smoker Tobacco: How many years used: 14 quit status: quit date established alcohol intake: former substance use type: does not use and marijuana Smoking Status: Former smoker tobacco type: cigarettes and vaping alcohol intake frequency: 0-2 drinks per day Substance Use Type: marijuana Exam Initial Vital Signs Initial Vital Signs: Vital Signs Temperature 99 F 05/05/23 09:27 Pulse Rate 97 H 05/05/23 09:27 Respiratory Rate 18 05/05/23 09:27 Blood Pressure 168/94 H 05/05/23 09:27 Pulse Oximetry 97 05/05/23 09:27 Oxygen Delivery Method Room Air 05/05/23 09:27 HENMT Head: normal to inspection and normocephalic Mouth: oral mucosae normal Throat: posterior oropharynx normal Neck Lymphatic: No lymphadenopathy Resp Effort & Inspection: normal respiratory effort Auscultation: clear to auscultation bilaterally Skin General: no rashes or lesions noted Neuro General: patient alert, patient awake and moves all extremities Course Orders Ordered: ED Orders 05/05/23 09:51 Monotest Stat Discontinued Medications Dexamethasone (Dexamethasone 4 Mg Tablet) 12 mg PO NOW ONE Stop: 05/05/23 09:52 Last Admin: 05/05/23 09:54 Dose: 12 mg Documented By: HUGO Vital Signs Vital signs: Vital Signs - 8 hr 05/05/23 09:27 Temperature 99 F Pulse Rate 97 H Respiratory Rate 18 Blood Pressure 168/94 H Pulse Oximetry 97 Oxygen Delivery Method Room Air Medical Decision Making Lab Data Lab results reviewed: Yes I reviewed the patient's lab results. Labs: Lab Results 05/05/23 Range/Units 09:51 Monoscreen Negative (Negative) MDM Narrative Medical decision making narrative: Patient's mono test is negative. He is had a negative rapid strep and also a negative throat culture. There was no indication for antibiotics. Was given a dose of steroids here in the ER. I continue to feel that this is a viral infection. There was no signs of peritonsillar abscess/retropharyngeal abscess. Low suspicion for foreign body. Will provide another dose of steroids to taken 36 hours. Reassured patient. Was given return precautions. He expressed understanding and agreement. Discharge Plan Departure Patient Disposition: Home Clinical Impression: Pharyngitis Instructions: Sore Throat Activity Restrictions/Additional Instructions: I do recommend that you try the [id number] sore throat remedies to include Cepacol drops and Chloraseptic sprays. Take the steroids at noon tomorrow like we discussed. Return to the emergency department for new symptoms. Prescriptions: New dexamethasone 4 mg tablet 12 mg PO DAILY Qty: 3 0RF No Action meloxicam 15 mg tablet 15 mg PO DAILY methocarbamol PO Referrals: Anjel Orellana DO [Primary Care Provider] - Stand Alone Forms: Patient Portal/API
[2023-05-05] MEDS: dexAMETHasone 4 MG TABLET 12 MG PO (09:54)
[2023-05-05 10:12] LABS: Monotest Negative (Negative)
[2023-05-05 10:35] VITALS: BP 139/80; PULSE 88; RESP 18; O2SAT 100
== END 2023-05-05 10:37 | disposition home or self-care (01) ==
PROVIDERS: Emergency Provider Emergency Medicine; PCP Family Medicine
DX: J02.9 Acute pharyngitis, unspecified (principal)
CPT/HCPCS: 86318; 99283

== ENCOUNTER → 2023-05-13 15:22 | Outpatient (CLI) | payer OTHER, SELFPAY ==
--- NOTE | 2023-05-13 15:23 | DI.RAD.S_ITS ---
PROCEDURE: XR FOOT LT MIN 3V INDICATIONS: Foot pain TECHNIQUE: 3 views of the foot were acquired. COMPARISON: None. FINDINGS: Bones: No fractures or dislocations. No suspicious bony lesions. Soft tissues: No tibiotalar joint effusion. Achilles tendon appears normal. IMPRESSION: No acute osseous abnormality Approved by: Xiomy William M.D. on 05/13/2023 at 23:44
== END ==
PROVIDERS: PCP Family Medicine; Referring Provider Nurse Practitioner Family; Visit Provider Nurse Practitioner Family
DX: M79.672 Pain in left foot (principal)
CPT/HCPCS: 73630

== ENCOUNTER 2023-07-15 14:28 | Emergency (ER) | payer OTHER, SELFPAY ==
[2023-07-15 15:08] VITALS: BP 147/84; PULSE 74; RESP 18; TEMP 36.7; O2SAT 99; BMI 28.5
--- NOTE | 2023-07-15 15:33 | DI.US.S_ITS ---
PROCEDURE: US ABDOMEN LIMITED INDICATIONS: KNOWN LEFT INGUINAL HERNIA WORSENING PAIN TECHNIQUE: Real-time focused scanning was performed of the inguinal region, with image documentation. COMPARISON: None. FINDINGS: There is a fat containing left inguinal hernia which appears at least partially reducible. The abdominal wall defect measures 1.4 cm. IMPRESSION: Fat containing left inguinal hernia which appears at least partially reducible on ultrasound images. Dictated by: Nancy Ortiz M.D. on 07/15/2023 at 16:42 Approved by: Nancy Ortiz M.D. on 07/15/2023 at 16:43
--- NOTE | 2023-07-15 17:13 | ED_ITS ---
HPI - Male Genitourinary <Mikaela Beach PA-C - Last Filed: 07/15/23 17:31> General Chief complaint: Urogenital-Male Stated complaint: poss hernia LT side started burning today Time Seen by Provider: 07/15/23 17:13 Source: patient Mode of arrival: Ambulatory History of Present Illness HPI Narrative: Patient is a 42-year-old male who presents with left inguinal pain. He has a history of right inguinal hernia with repair x2. He has had low-grade aching pain in the lower left groin intermittently for weeks and has an appointment with Dr. Nunez on for consultation. Today he developed more acute burning pain in the area. He does not feel any bulge but it is tender. He denies any nausea or vomiting or fever. He has no dysuria, hematuria or penile discharge. Related Data Home Medications Medication Instructions Recorded Confirmed meloxicam 15 mg tablet 15 mg PO DAILY 12/20/22 07/18/23 methocarbamol PO 12/20/22 07/18/23 Allergies Allergy/AdvReac Type Severity Reaction Status Date / Time tramadol [TRAMADOL] AdvReac Unknown Nightmare Verified 07/18/23 15:13 Review of Systems <Mikaela Beach PA-C - Last Filed: 07/15/23 17:31> Review of Systems ROS Unobtainable: All systems reviewed & are unremarkable except as noted in HPI and below Patient History <Mikaela Beach PA-C - Last Filed: 07/15/23 17:31> Medical History Left inguinal hernia Low testosterone in male Prediabetes Hyperlipidemia Hand tendinitis Hearing loss Sleep apnea Change in facial mole PTSD (post-traumatic stress disorder) Depression Anxiety Generalized anxiety disorder Strain of tendon of left rotator cuff Lower back pain RLQ abdominal pain Right epididymitis Prostatitis Cervical strain, acute Hydrocele Inguinal hernia recurrent unilateral Testicular pain, right Back pain Neck pain, musculoskeletal Rupture of left tympanic membrane Surgical History H/O hernia repair Family History Mother Diabetes mellitus Heart disease Father Diabetes mellitus Heart disease Social History marital status: household members: spouse and children occupational status: previously employed Smoking Status: Former smoker Tobacco: How many years used: 14 quit status: quit date established alcohol intake: former substance use type: does not use and marijuana Smoking Status: Former smoker tobacco type: cigarettes and vaping alcohol intake frequency: 0-2 drinks per day Substance Use Type: marijuana Exam <Mikaela Beach PA-C - Last Filed: 07/15/23 17:31> Narrative Exam Narrative: GENERAL: 42 year old patient appears stated age. Well-developed patient, in no distress. NEURO: AOx3. HEAD: Atraumatic. Normocephalic. EYES: Pupils equal round and reactive. Extraocular motions intact. No scleral icterus. No injection or drainage. ENT: Nose without bleeding or purulent drainage. Airway patent. RESPIRATORY: No distress GASTROINTESTINAL: Abdomen soft, non-tender, nondistended. : Normal external male genitalia. No left inguinal bulge or discoloration. Tenderness to palpation of the left inguinal area. EXTREMITIES: No edema or joint tenderness. SKIN: No rash or erythema of visible areas Initial Vital Signs Initial Vital Signs: Vital Signs Temperature 98.0 F 07/15/23 15:08 Pulse Rate 74 07/15/23 15:08 Respiratory Rate 18 07/15/23 15:08 Blood Pressure 147/84 H 07/15/23 15:08 Pulse Oximetry 99 07/15/23 15:08 Oxygen Delivery Method Room Air 07/15/23 15:08 <Anyi Stephenson DO - Last Filed: 07/20/23 04:32> Initial Vital Signs Initial Vital Signs: Vital Signs Temperature 98.0 F 07/15/23 15:08 Pulse Rate 74 07/15/23 15:08 Respiratory Rate 18 07/15/23 15:08 Blood Pressure 147/84 H 07/15/23 15:08 Pulse Oximetry 99 07/15/23 15:08 Oxygen Delivery Method Room Air 07/15/23 15:08 Course <Mikaela Beach PA-C - Last Filed: 07/15/23 17:31> Orders Ordered: ED Orders 07/15/23 15:33 US abdomen limited Stat Vital Signs Vital signs: Vital Signs - 8 hr 07/15/23 15:08 Temperature 98.0 F Pulse Rate 74 Respiratory Rate 18 Blood Pressure 147/84 H Pulse Oximetry 99 Oxygen Delivery Method Room Air <Anyi Stephenson DO - Last Filed: 07/20/23 04:32> Orders Ordered: ED Orders 07/15/23 15:33 US abdomen limited Stat Vital Signs Vital signs: Vital Signs - 8 hr 07/15/23 15:08 Temperature 98.0 F Pulse Rate 74 Respiratory Rate 18 Blood Pressure 147/84 H Pulse Oximetry 99 Oxygen Delivery Method Room Air MDM - Male Genitourinary <Mikaela Beach PA-C - Last Filed: 07/15/23 17:31> Lab Data Labs: Urine Dip Bedside Urine Glucose Negative Bedside Urine Bilirubin - Negative Bedside Urine Ketone - Negative Urine Specific [place] 1.010 Bedside Urine Occult Blood - Negative Bedside Urine pH 7.0 Bedside Urine Protein - Negative Bedside Urine Urobilinogen - Negative Bedside Urine Nitrite - Negative Bedside Urine Leukocytes - Negative Esterase Imaging Data US inguinal hernia: Radiologist's Impression: PROCEDURE: US ABDOMEN LIMITED INDICATIONS: KNOWN LEFT INGUINAL HERNIA WORSENING PAIN TECHNIQUE: Real-time focused scanning was performed of the inguinal region, with image documentation. COMPARISON: None. FINDINGS: There is a fat containing left inguinal hernia which appears at least partially reducible. The abdominal wall defect measures 1.4 cm. IMPRESSION: Fat containing left inguinal hernia which appears at least partially reducible on ultrasound images. Dictated by: Nancy Ortiz M.D. on 07/15/2023 at 16:42 Approved by: Nancy Ortiz M.D. on 07/15/2023 at 16:43 [facility] Narrative Medical decision making narrative: Multiple etiologies for patient's symptoms considered including, but not limited to: inguinal hernia, incarcerated hernia, UTI, testicular torsion, epididymitis, other STI Ultrasound shows fat containing left inguinal hernia that is at least partially reducible. Low suspicion for incarceration given findings of the ultrasound and physical exam. UA is negative. Discussed management of hernia including self reduction at home, avoiding constipation and other straining and when to return to the emergency department. Follow up as scheduled with Dr. Nunez this week for consideration of hernia repair. Patient's symptoms improved over duration of stay with above-stated therapies. Findings and discharge diagnosis discussed with patient/family followed by verbalization of understanding Return precautions discussed with patient/family whom verbalize understanding of diagnosis and plan <Anyi Stephenson DO - Last Filed: 07/20/23 04:32> Lab Data Labs: Urine Dip Bedside Urine Glucose Negative Bedside Urine Bilirubin - Negative Bedside Urine Ketone - Negative Urine Specific [place] 1.010 Bedside Urine Occult Blood - Negative Bedside Urine pH 7.0 Bedside Urine Protein - Negative Bedside Urine Urobilinogen - Negative Bedside Urine Nitrite - Negative Bedside Urine Leukocytes - Negative Esterase Discharge Plan Departure Patient Disposition: Home Clinical Impression: Hernia, inguinal, left Instructions: DI for Groin Hernia Activity Restrictions/Additional Instructions: *You have been diagnosed with suspected left inguinal hernia which is reducible at this time. As we discussed, you should return to the emergency department if you develop severe pain that does not resolve by trying to reduce the hernia. To do this, you should lay down flat, tried to relax and apply gentle but firm pressure to the painful area. Sometimes you will feel the soft bulge of the hernia and it may feel like it has gas bubbles in it. If you can not make the pain/bulge improve or if the area is turning blue or purple or if you develop systemic symptoms like fever, nausea or vomiting, you should immediately return to the emergency department. Please keep your appointment on with Dr. Nunez. Your urine test does not show any signs of infection today. *What to do: *Please continue to take your regular medications as directed. [ ] New medication prescriptions sent to your pharmacy: [ ] [ ] New medication written as a paper prescription [x] No new medications given *Please follow up with your primary care provider in 2-3 days, call for an appointment. Let them know you were seen in the Emergency Department and that we ask that you be seen in follow up. We will electronically transmit a record of today's note if your PCP is in our system *If you do not have a primary care provider please contact the [facility] Resource line at [phone]. They will ask some questions about your medical history and help get you set up with a doctor in the community. *Return to Emergency Department if you should have any new, worsening or concerning symptoms, such as [fever greater than 101 F, shaking chills, worsening pain, persistent vomiting or other concerning symptoms]. Prescriptions: No Action meloxicam 15 mg tablet 15 mg PO DAILY methocarbamol PO Referrals: Pepe Nunez MD [Physician] - Anjel Orellana DO [Primary Care Provider] - Stand Alone Forms: Patient Portal/API, Work Release Note ED Sign-out <Anyi Stephenson DO - Last Filed: 07/20/23 04:32> Cosign ED Attending Cosignature Attestation: I was immediately available in the department for consultation. Documentation has been reviewed.
[2023-07-15 17:40] VITALS: BP 142/72; PULSE 78; RESP 20; TEMP 36.8; O2SAT 98
== END 2023-07-15 17:41 | disposition home or self-care (01) ==
PROVIDERS: Emergency Provider Physician Assistant; PCP Family Medicine
DX: K40.90 Unilateral inguinal hernia, without obstruction or gangrene, not specified as recurrent (principal)
CPT/HCPCS: 76705; 81003; 99281; 99283

== ENCOUNTER 2023-08-07 06:43 | Day surgery (SDC) | payer OTHER, SELFPAY ==
[2023-08-01 08:08] VITALS: BMI 28.5
[2023-08-07] VITALS (12 sets, daily range): BP systolic 123–152; BP diastolic 82–95; PULSE 74–104; RESP 12–20; TEMP 36.2–36.8; O2SAT 95–99; BMI 28.5
[2023-08-07] MEDS: ACETAMINOPHEN 325 MG TABLET 975 MG PO ×2 (07:14→14:20)
[2023-08-07] MEDS: LACTATED RINGERS 1,000 ML 21 ML IV ×2 (07:15→09:22)
--- NOTE | 2023-08-07 07:22 | SUR.OPER ---
Supine on padded OR bed, head on pillow, arms padded and tucked at sides, legs uncrossed, safety belt at thigh, tape over blanket over lower legs .
--- NOTE | 2023-08-07 07:38 | PM.PREOP ---
Pre-operative Note Interval Note History & Physical reviewed/Exam performed by Physician: Yes Changes to H&P: No
[2023-08-07] MEDS: CEFAZOLIN 2 GM/100 ML PREMIX 100 ML IV (08:05)
[2023-08-07] MEDS: BUPIVACAINE 0.25% (PF) VIAL 30 ML INJ (08:17)
--- NOTE | 2023-08-07 09:47 | PM.OP.1 ---
Operative Date/Time/Diagnoses Date of procedure: 08/07/23 Time of procedure: 09:47 Pre-op diagnosis: Left inguinal hernia Post-op diagnosis: same Procedure & Clinicians Procedure: Laparoscopic repair of left inguinal hernia Same procedure as scheduled: Yes Indications: 42-year-old man with a symptomatic reducible left inguinal hernia here for elective repair Surgeon: Pepe Nunez Anesthesia Type: General Operative Notes Findings: Indirect left inguinal hernia. No direct floor defect. Specimen(s): none sent Estimated Blood Loss (mL): 50 Procedure in detail: The patient was brought to the operating room and placed supine on the table. Bilateral sequential compression devices were applied. General anesthesia was induced and they were intubated with an endotracheal tube. A baptiste cath was placed in sterile fashion. They received 900g clindaymycin prior to skin incision. They were prepped and draped in sterile fashion. A time out was performed to ensure the correct patient, procedure and necessary equipment within the operating room. The skin was infiltrated with 0.25% bupivicaine. A 1 cm supra umbilical midline incision was made. The fascia was sharply incised and the abdomen entered traumatically. A 10mm balloon port was placed and pneumoperitoneum was established at 15mm Hg. Inspection of the abdomen demonstrated no evidence of injury upon entry. Two 5 mm ports were then placed under direct visualization in the right and left lower quadrant lateral to the rectus muscle. There was no evidence of right inguinal hernia the previous right-sided repair was intact. There was a left indirect hernia identified. There were adhesions between the sigmoid colon and the left pelvic side wall which were carefully dissected. Starting on the left side the peritoneum 4 cm superior to the deep inguinal ring between the medial umbilical ligament and the anterior superior iliac spine was incised. The medial preperitoneal dissection was carried out into the space of Retzius bluntly, the bladder was swept inferiorly, the pubis and Jones's ligament were identified. Next attention was turned towards the lateral aspect of the peritoneal flap. The preperitoneal fat with the testicular vessels was carefully dissected off the inferior peritoneal flap. The cord was carefully inspected there was a moderate size indirect hernia containing omentum which was skeltonized off the cord preserving the testicular vessels and the vas deferns. No evidence of a direct floor defect. A large Bard 3D Max mesh was then placed into the abdomen and positioned such that the myopectineal orifice was completely covered with good overlap on all sides. The peritoneal flap was then repositioned back to its original position and a running V lock suture was used to close the peritoneum such that no bowel could herniate into the preperitoneal space. The area was examined for hemostasis. The 5mm trocars were removed under direct visualization and pneumoperitoneum was deflated through the umbilical trocar, The fascia at the umbilicus was closed with 0-Vicryl in figure of 8 fashion, skin closed with 4-0 Monocyl followed by Dermabond. The sponge and instrument count at the end of the case was correct. Both testicles were entirely within the scrotum at the end of the case. The patient emerged from anesthsia was extubated and transferred to recovery in stable condition. Complications: none Post-operative Condition: stable Disposition: same day surgery
[2023-08-07] MEDS: OXYCODONE IR 5 MG TABLET PO ×2 (09:50→11:14)
[2023-08-07] MEDS: HYDROMORPHONE 1 MG INJ IV ×4 (10:24→12:16)
[2023-08-07] MEDS: LORazepam 2 MG/ML INJ 0.25 MG IV (11:56)
--- NOTE | 2023-08-07 12:38 | SUR.PHASEII ---
Addendum entered by Shanice Garnica R.N. 08/07/23 13:31: Unable to insert 16F baptiste catheter as it would not advance. Placement obtained using 14F coude cath. Catheter withdrawn. 325 ml pale yellow urine obtained. Original Note: 1240 - Pt up to restroom Unable to void after 2 attempts. Pt asking for a catheter. Order obtained from Dr Nunez. Pt bladder scanned for 83 ml. Decision made to cath pt despite bladder scanner results. 350 ml pale yellow urine obtained. 1315 - Report given to LUCIO Anguiano.
--- NOTE | 2023-08-07 14:03 | SUR.PHASEII ---
See new order for Tylenol. Pt due for next dose as more than [address] Nunez in to see patient. Patient okay for dishcarge to home. This RN discussed pt HR 100-108. ok for patient to go home. No need to void prior to discharge. MD aware of scrotal swelling and bruising.
--- NOTE | 2023-08-07 14:34 | SUR.PHASEII ---
Pt up to BR. Steady on feet. No new drainage on dressing. No new swelling to scrotum.
== END 2023-08-07 14:43 | disposition home or self-care (01) ==
PROVIDERS: PCP Family Medicine; Referring Provider Surgery; Visit Provider Surgery
PROC: 0YQ64ZZ Repair Left Inguinal Region, Percutaneous Endoscopic Approach (ICD-10-PCS; CPT 49650; principal; 2023-08-07 07:45)
DX: K40.90 Unilateral inguinal hernia, without obstruction or gangrene, not specified as recurrent (principal); K66.0 Peritoneal adhesions (postprocedural) (postinfection)
CPT/HCPCS: 49650; 82962; J0690; J1100; J1170; J1885; J2060; J2250; J2405; J2704; J3010

== ENCOUNTER → 2023-11-12 09:48 | Outpatient (CLI) | payer OTHER, SELFPAY ==
[2023-11-12 11:32] LABS: Alanine Aminotransferase 34 IU/L (<50); Albumin 4.6 g/dL (3.5-5.0); Albumin Globulin Ratio 1.4 (1.0-2.8); Alkaline Phosphatase 68 U/L (38-126); Aspartate Aminotransferase 27 IU/L (17-59); BUN Creatinine Ratio 16.2 (6-22); Bilirubin Total 0.6 mg/dL (0.2-1.3); Blood Urea Nitrogen 17 mg/dL (9-20); Calcium 9.8 mg/dL (8.4-10.2); Carbon Dioxide 26 mmol/L (22-32); Chloride 106 mmol/L (98-107); Cholesterol 217 mg/dL (140-199); Estimated Glomerular Filt Rate > 60 mL/min (>60); Globulin 3.3 g/dL (1.7-4.1); Glucose 104 mg/dL (70-100); HDL Cholesterol 42 mg/dL (40-60); HEMOLYSIS < 15 (0-50); LDL Cholesterol Calculated 133 mg/dL (<100); Potassium 4.1 mmol/L (3.4-5.1); Sodium 143 mmol/L (137-145); Total Protein 7.9 g/dL (6.3-8.2); Triglycerides 209 mg/dL (35-150)
[2023-11-13 12:09] LABS: x Labcorp Estim. Avg Glu (eAG) 117 mg/dL (.); x Labcorp Hemoglobin A1c 5.7 % (4.8-5.6)
[2023-11-19 12:16] LABS: Percent Free Testosterone 2.95 % (1.50-4.20); Testosterone Total 274.7 ng/dL (264.0-916.0)
== END ==
PROVIDERS: PCP Family Medicine; Referring Provider Family Medicine; Visit Provider Family Medicine
DX: R73.03 Prediabetes (principal); E78.5 Hyperlipidemia, unspecified; R79.89 Other specified abnormal findings of blood chemistry
CPT/HCPCS: 36415; 80053; 80061; 83036; 84402; 84403

== ENCOUNTER 2024-01-31 17:35 | Emergency (ER) | payer OTHER, SELFPAY ==
[2024-01-31] VITALS (12 sets, daily range): BP systolic 126–154; BP diastolic 83–90; PULSE 72–92; RESP 10–21; TEMP 36.6; O2SAT 96–99; BMI 28.5
--- NOTE | 2024-01-31 18:16 | DI.RAD.S_ITS ---
PROCEDURE: XR CHEST 1V INDICATIONS: chest pain TECHNIQUE: One view of the chest was acquired. COMPARISON: None. FINDINGS: Surgical changes and devices: None. Lungs and pleura: Lungs are clear. No pleural effusions or pneumothorax. Mediastinum: Mediastinal contours appear normal. Heart size is normal. Bones and chest wall: No suspicious bony lesions. Overlying soft tissues appear unremarkable. IMPRESSION: No acute cardiopulmonary abnormality is seen. Approved by: Giorgio Pineda M.D. on 01/31/2024 at 19:54
[2024-01-31 19:21] LABS: Add Manual Diff / Slide Review NO; Basophils Absolute Auto 100 /uL (0-100); Basophils Percent Auto 0.6 % (0-2); Eosinophils Absolute Auto 100 /uL (0-450); Eosinophils Percent Auto 0.9 % (2-4); Hematocrit 46.6 % (41-53); Lymphocytes Absolute Auto 2500 /uL (1100-4500); Lymphocytes Percent Auto 29.2 % (25-40); Mean Corpuscular HGB Conc 34.3 % (30-36); Mean Corpuscular Hemoglobin 29.3 PG (26-34); Mean Corpuscular Volume 85.5 fL (80-100); Monocytes Absolute Auto 600 /uL (0-900); Monocytes Percent Auto 6.7 % (3-14); Neutrophils Absolute Auto 5300 /uL (1500-7000); Neutrophils Percent Auto 62.6 % (50-75); Platelet Count 292 X10^3/uL (150-400); Red Blood Cell Count 5.45 X10^6/uL (4.5-5.9); Red Cell Distribution Width 12.9 % (11.6-14.8); White Blood Cell Count 8.4 X10^3/uL (4.5-11.0)
--- NOTE | 2024-01-31 19:29 | ED_ITS ---
HPI - Chest Pain General Chief Complaint: Chest Pain Stated Complaint: chest pains Time Seen by Provider: 01/31/24 19:03 Source: patient Mode of arrival: Ambulatory Limitations: no limitations History of Present Illness HPI narrative: 43-year-old male with history of PTSD, chronic neck pain presents by private vehicle from home for left-sided chest pain that has been intermittent for the last week. Pain is described as a ?pinching sensation?, intermittent, occasionally radiates to left shoulder. Patient can not identify what makes the pain come or go. Recently saw his primary care physician for racing heartbeat detected on his fit bit. He is scheduled for a Holter monitor device. Patient became concerned when the pains persisted after 1 week and decided to present for evaluation. Related Data Home Medications Medication Instructions Recorded Confirmed meloxicam 15 mg tablet 15 mg PO DAILY 12/20/22 11/04/23 methocarbamol 500 mg PO BEDTIME 12/20/22 11/04/23 acetaminophen 500 mg tablet 500 mg PO Q6H PRN Pain (Scale 08/07/23 11/04/23 Score 1-3) Allergies Allergy/AdvReac Type Severity Reaction Status Date / Time tramadol [TRAMADOL] AdvReac Unknown Night Verified 11/04/23 14:39 Terrors Review of Systems Review of Systems Narrative: See HPI Patient History Medical History Obstructive sleep apnea Arthritis Hx of tuberculosis Left inguinal hernia Low testosterone in male Prediabetes Hyperlipidemia Hand tendinitis Hearing loss Sleep apnea Change in facial mole PTSD (post-traumatic stress disorder) Depression Anxiety Generalized anxiety disorder Strain of tendon of left rotator cuff Lower back pain RLQ abdominal pain Right epididymitis Prostatitis Cervical strain, acute Hydrocele Inguinal hernia recurrent unilateral Testicular pain, right Back pain Neck pain, musculoskeletal Rupture of left tympanic membrane Surgical History H/O vasectomy [place] teeth removed Hx of right inguinal hernia repair (02/21/21) H/O hernia repair Family History Mother Diabetes mellitus Heart disease Father Diabetes mellitus Heart disease Social History marital status: household members: spouse and children occupational status: previously employed Smoking Status: Former smoker Tobacco: How many years used: 14 quit status: quit date established alcohol intake: former substance use type: does not use and marijuana Smoking Status: Former smoker tobacco type: cigarettes and vaping alcohol intake frequency: 0-2 drinks per day Substance Use Type: marijuana Exam Initial Vital Signs Initial Vital Signs: Vital Signs Temperature 97.9 F 01/31/24 18:07 Pulse Rate 92 H 01/31/24 18:07 Respiratory Rate 16 01/31/24 18:07 Blood Pressure 154/87 H 01/31/24 18:07 Pulse Oximetry 98 01/31/24 18:07 Oxygen Delivery Method Room Air 01/31/24 18:07 Const: Awake, alert, no acute distress, nontoxic appearing Cardiac: regular rate, regular rhythm RESP: unlabored, clear bilaterally, no wheezing GI: Soft, nontender, nondistended, no rebound, no guarding MSK: Atraumatic, full range of motion, pulses equal Skin: Warm, Dry, intact, no rashes Neuro: AO x3, CN II-XII grossly intact, moves all extremities Course Orders Ordered: ED Orders 01/31/24 18:16 XR chest 1V Stat EKG-12 Lead Stat 01/31/24 19:09 Complete Blood Count AUTO DIFF Stat Comprehensive Metabolic Panel Stat Lipase Stat Magnesium Stat PTT Partial Thromboplastin Meir Stat Prothrombin Time INR Stat Troponin & CK Cardiac Panel Stat Discontinued Medications Aspirin (Aspirin 81 Mg Chew Tab) 324 mg PO NOW ONE Stop: 01/31/24 18:17 Last Admin: 01/31/24 19:40 Dose: 324 mg Documented By: JERMAINE Vital Signs Vital signs: Vital Signs - 8 hr 01/31/24 18:07 01/31/24 18:54 01/31/24 19:00 Temperature 97.9 F Pulse Rate 92 H 77 Respiratory Rate 16 17 Blood Pressure 154/87 H 136/88 Pulse Oximetry 98 98 Oxygen Delivery Method Room Air 01/31/24 19:00 01/31/24 19:30 01/31/24 19:38 Temperature Pulse Rate 81 81 76 Respiratory Rate 16 10 L 20 Blood Pressure Pulse Oximetry 97 98 97 Oxygen Delivery Method 01/31/24 19:38 01/31/24 19:42 01/31/24 20:00 Temperature Pulse Rate 81 75 Respiratory Rate 18 16 Blood Pressure 134/85 134/85 Pulse Oximetry 99 98 Oxygen Delivery Method Room Air 01/31/24 20:00 01/31/24 20:30 01/31/24 20:30 Temperature Pulse Rate 80 Respiratory Rate 20 Blood Pressure 138/90 137/88 Pulse Oximetry 98 Oxygen Delivery Method 01/31/24 21:00 01/31/24 21:00 01/31/24 21:30 Temperature Pulse Rate 72 77 Respiratory Rate 12 21 Blood Pressure 140/83 Pulse Oximetry 99 96 Oxygen Delivery Method 01/31/24 21:30 01/31/24 21:54 01/31/24 21:54 Temperature Pulse Rate 78 Respiratory Rate 19 Blood Pressure 137/84 126/88 Pulse Oximetry 97 Oxygen Delivery Method 01/31/24 21:58 01/31/24 21:58 Temperature Pulse Rate 75 Respiratory Rate 18 Blood Pressure 126/88 Pulse Oximetry 98 Oxygen Delivery Method Room Air MDM - Chest Pain Differential Diagnosis Differential diagnosis: Likely fracture of rib, pneumothorax and stable angina Lab Data 01/31/24 19:09 01/31/24 19:09 Labs: Lab Results 01/31/24 Range/Units 19:09 WBC 8.4 (4.5-11.0) X10^3/uL RBC 5.45 (4.5-5.9) X10^6/uL Hgb 16.0 (13.5-17.5) g/dL Hct 46.6 (41-53) % MCV 85.5 (80-100) fL MCH 29.3 (26-34) PG MCHC 34.3 (30-36) % RDW 12.9 (11.6-14.8) % Plt Count 292 (150-400) X10^3/uL Neut % (Auto) 62.6 (50-75) % Lymph % (Auto) 29.2 (25-40) % Gaines % (Auto) 6.7 (3-14) % Eos % (Auto) 0.9 L (2-4) % Baso % (Auto) 0.6 (0-2) % Neut # (Auto) 5300 (5478-4053) /uL Lymph # (Auto) 2500 (1240-5443) /uL Gaines # (Auto) 600 (0-900) /uL Eos # (Auto) 100 (0-450) /uL Baso # (Auto) 100 (0-100) /uL PT 10.8 (9.4-12.5) SECONDS INR 0.9 (0.9-1.3) APTT 32 (25.1-36.5) SECONDS Sodium 138 (137-145) mmol/L Potassium 3.6 (3.4-5.1) mmol/L Chloride 109 H (98-107) mmol/L Carbon Dioxide 21 L (22-32) mmol/L BUN 21 H (9-20) mg/dL Creatinine 0.84 (0.66-1.25) mg/dL Estimated GFR > 60 (>60) mL/min BUN/Creatinine Ratio 25.0 H (6-22) Glucose 99 (70-100) mg/dL Calcium 9.5 (8.4-10.2) mg/dL Magnesium 2.2 (1.6-2.3) mg/dL Total Bilirubin 0.7 (0.2-1.3) mg/dL AST 33 (17-59) IU/L ALT 50 H (<50) IU/L Alkaline Phosphatase 68 (38-126) U/L Total Creatine Kinase 109 (55-170) U/L Troponin I < 0.012 (0.01-0.034) ng/mL Total Protein 7.9 (6.3-8.2) g/dL Albumin 4.9 (3.5-5.0) g/dL Globulin 3.0 (1.7-4.1) g/dL Albumin/Globulin Ratio 1.6 (1.0-2.8) Lipase 70 (23-300) U/L Imaging Data Chest x-ray: Radiologist's Impression: PROCEDURE: XR CHEST 1V INDICATIONS: chest pain TECHNIQUE: One view of the chest was acquired. COMPARISON: None. FINDINGS: Surgical changes and devices: None. Lungs and pleura: Lungs are clear. No pleural effusions or pneumothorax. Mediastinum: Mediastinal contours appear normal. Heart size is normal. Bones and chest wall: No suspicious bony lesions. Overlying soft tissues appear unremarkable. IMPRESSION: No acute cardiopulmonary abnormality is seen. Approved by: Giorgio Pineda M.D. on 01/31/2024 at 19:54 ECG Data Interpretation: Normal sinus rhythm at 78 beats per minute, normal MA, normal axis, no ST T wave changes, no STEMI MDM Narrative Medical decision making narrative: Well-appearing patient with 1 week of intermittent symptoms. Currently pain- free. EKG is normal sinus rhythm without any concerning findings. Heart score technically 0 based on a young age, no known risk factors. Laboratory work is reviewed, unremarkable. Troponin undetectable, no other acute significant lab abnormalities. Patient reassessed, still pain-free. Reassured by normal lab, EKG, chest x-ray results. He will continue to follow up with the [place] for his heart monitor. Discharge Plan Departure Patient Disposition: Home Clinical Impression: Chest pain Instructions: DI for Chest Pain Activity Restrictions/Additional Instructions: Your EKG, lab work, and chest x-ray were normal today. I do not know the cause of your chest pains but it was not appear that you are suffering a heart attack at this time. Please continue to follow up with your doctor at the [place] for the heart monitor. If you have changes in your symptoms or worsening pain please return to the emergency department for repeat evaluation. Prescriptions: No Action meloxicam 15 mg tablet 15 mg PO DAILY methocarbamol 500 mg PO BEDTIME acetaminophen 500 mg Tablet 500 mg PO Q6H PRN (Reason: Pain (Scale Score 1-3)) Referrals: Anjel Orellana DO [Primary Care Provider] - Stand Alone Forms: Patient Portal/API
--- NOTE | 2024-01-31 19:30 | PC.NURSE ---
Assumed care of pt, pt resting on stretcher, pt reports chest has somewhat resolved, RR even and unlabored, NAD noted.
[2024-01-31 19:32] LABS: INR 0.9 (0.9-1.3); Prothrombin Time 10.8 SECONDS (9.4-12.5)
[2024-01-31 19:34] LABS: PTT Partial Thromboplastin Tim 32 SECONDS (25.1-36.5)
[2024-01-31 19:38] LABS: Alanine Aminotransferase 50 IU/L (<50); Albumin 4.9 g/dL (3.5-5.0); Albumin Globulin Ratio 1.6 (1.0-2.8); Alkaline Phosphatase 68 U/L (38-126); Aspartate Aminotransferase 33 IU/L (17-59); Bilirubin Total 0.7 mg/dL (0.2-1.3); Blood Urea Nitrogen 21 mg/dL (9-20); Calcium 9.5 mg/dL (8.4-10.2); Carbon Dioxide 21 mmol/L (22-32); Chloride 109 mmol/L (98-107); Creatine Kinase 109 U/L (55-170); Estimated Glomerular Filt Rate > 60 mL/min (>60); Glucose 99 mg/dL (70-100); HEMOLYSIS 19 (0-50); Lipase 70 U/L (23-300); Magnesium 2.2 mg/dL (1.6-2.3); Potassium 3.6 mmol/L (3.4-5.1); Sodium 138 mmol/L (137-145); Total Protein 7.9 g/dL (6.3-8.2)
[2024-01-31] MEDS: ASPIRIN 81 MG CHEW TAB 324 MG PO (19:40)
[2024-01-31 19:49] LABS: Troponin I < 0.012 ng/mL (0.01-0.034)
== END 2024-01-31 22:03 | disposition home or self-care (01) ==
PROVIDERS: Emergency Medicine; Emergency Provider Emergency Medicine; PCP Family Medicine
DX: R07.9 Chest pain, unspecified (principal)
CPT/HCPCS: 36415; 71045; 80053; 82550; 83690; 83735; 84484; 85025; 85610; 85730; 93005; 99284

== ENCOUNTER → 2024-04-30 09:11 | Outpatient (CLI) | payer OTHER, SELFPAY ==
--- NOTE | 2024-04-30 09:12 | DI.RAD.S_ITS ---
PROCEDURE: XR FOOT RT MIN 3V INDICATIONS: Right foot pain TECHNIQUE: 3 views of the foot were acquired. COMPARISON: [facility], , XR FOOT LT MIN 3V, 05/13/2023, 15:26. FINDINGS: Bones: No fractures or dislocations. No suspicious bony lesions. 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 Soft tissues: No tibiotalar joint effusion. Achilles tendon appears normal. IMPRESSION: 1. No acute fracture or dislocation. 2. 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 Dictated by: Blayne Sanchez M.D. on 04/30/2024 at 12:33 Approved by: Blayne Sanchez M.D. on 04/30/2024 at 12:38
== END ==
PROVIDERS: PCP Family Medicine; Referring Provider Nurse Practitioner Family; Visit Provider Nurse Practitioner Family
DX: M19.071 Primary osteoarthritis, right ankle and foot (principal); M79.671 Pain in right foot
CPT/HCPCS: 73630

== ENCOUNTER 2024-07-20 15:20 | Emergency (ER) | payer OTHER, SELFPAY ==
[2024-07-20 15:21] VITALS: BP 144/83; PULSE 94; RESP 14; TEMP 37.3; O2SAT 97; BMI 29.7
[2024-07-20 15:57] LABS: Add Manual Diff / Slide Review NO; Basophils Absolute Auto 0 /uL (0-100); Basophils Percent Auto 0.5 % (0-2); Eosinophils Absolute Auto 100 /uL (0-450); Eosinophils Percent Auto 1.6 % (2-4); Hematocrit 46.8 % (41-53); Hemoglobin 16.1 g/dL (13.5-17.5); Lymphocytes Absolute Auto 2600 /uL (1100-4500); Lymphocytes Percent Auto 27.7 % (25-40); Mean Corpuscular HGB Conc 34.3 % (30-36); Mean Corpuscular Hemoglobin 29.6 PG (26-34); Mean Corpuscular Volume 86.4 fL (80-100); Monocytes Absolute Auto 500 /uL (0-900); Monocytes Percent Auto 5.4 % (3-14); Neutrophils Absolute Auto 6100 /uL (1500-7000); Neutrophils Percent Auto 64.8 % (50-75); Platelet Count 296 X10^3/uL (150-400); Red Blood Cell Count 5.42 X10^6/uL (4.5-5.9); Red Cell Distribution Width 12.8 % (11.6-14.8); White Blood Cell Count 9.4 X10^3/uL (4.5-11.0)
[2024-07-20 16:08] LABS: Alanine Aminotransferase 63 IU/L (<50); Albumin 4.6 g/dL (3.5-5.0); Albumin Globulin Ratio 1.6 (1.0-2.8); Alkaline Phosphatase 66 U/L (38-126); Aspartate Aminotransferase 37 IU/L (17-59); BUN Creatinine Ratio 16.5 (6-22); Bilirubin Total 0.5 mg/dL (0.2-1.3); Blood Urea Nitrogen 17 mg/dL (9-20); Calcium 9.3 mg/dL (8.4-10.2); Carbon Dioxide 23 mmol/L (22-32); Chloride 108 mmol/L (98-107); Estimated Glomerular Filt Rate > 60 mL/min (>60); Globulin 2.9 g/dL (1.7-4.1); Glucose 156 mg/dL (70-100); HEMOLYSIS < 15 (0-50); Lipase 112 U/L (23-300); Potassium 3.7 mmol/L (3.4-5.1); Sodium 140 mmol/L (137-145); Total Protein 7.5 g/dL (6.3-8.2)
--- NOTE | 2024-07-20 16:12 | ED_ITS ---
HPI - Abdominal Pain <Sho Dudley PA-C - Last Filed: 07/21/24 14:29> General Chief Complaint: Abdominal Pain Stated Complaint: abd pain, hx of hernias Time Seen by Provider: 07/20/24 15:56 Source: patient Mode of arrival: Ambulatory History of Present Illness HPI narrative: 43-year-old male with past medical history inguinal hernia, status post bilateral inguinal hernia repair presents to the ED with 2 weeks of abdominal and testicular pain. Patient complains of pain below his umbilicus, which radiates down into his left groin and scrotum. Patient also endorses feeling somewhat run down over the past couple of weeks, that he feels like he can not fully empty his bladder when he urinates. No dysuria. No fever, chills, chest pain, shortness of breath, nausea, vomiting, diarrhea, constipation, lightheadedness, dizziness, syncope. Patient has had bilateral inguinal hernia repairs, the left sided repair was performed in July 2023. Related Data Home Medications Medication Instructions Recorded Confirmed meloxicam 15 mg tablet 15 mg PO DAILY 12/20/22 07/23/24 cholecalciferol (vitamin D3) 50 50 mcg PO DAILY 07/23/24 07/23/24 mcg (2,000 unit) capsule duloxetine 20 mg capsule,delayed 20 mg PO BID 07/23/24 07/23/24 release Previous Rx's Medication Instructions Recorded metoprolol succinate 25 mg 25 mg PO BID #180 tabs 05/26/24 tablet,extended release 24 hr Allergies Allergy/AdvReac Type Severity Reaction Status Date / Time tramadol [TRAMADOL] AdvReac Unknown Night Verified 07/23/24 15:11 Terrors Review of Systems <Sho Dudley PA-C - Last Filed: 07/21/24 14:29> Constitutional Constitutional: Denies chills, Denies fatigue, Denies fever(s), Denies frequent falls, Denies lethargy, Reports malaise and Denies weakness Eyes Eyes: Denies change in vision, Denies eye discharge, Denies irritation and Denies loss of vision ENT Ears, Nose, Mouth, and Throat: Denies change in voice, Denies dizziness, Denies neck pain, Denies sore throat and Denies throat swelling Cardiovascular Cardiovascular: Denies chest pain, Denies irregular heart rhythm, Denies lightheadedness, Denies palpitations, Denies dyspnea, Denies dyspnea on exertion and Denies orthopnea Respiratory Respiratory: Denies cough, Denies dyspnea, Denies dyspnea on exertion and Denies wheezing Gastrointestinal Gastrointestinal: Reports abdominal pain, Denies change in bowel habits, Denies diarrhea, Denies nausea and Denies vomiting Genitourinary Genitourinary: Reports testicular pain Comments: Testicular pain, left greater than right Musculoskeletal Musculoskeletal: Denies neck pain and Denies numbness Integumentary/Breasts Skin/Breast: Denies pruritus, Denies erythema, Denies rash and Denies wounds Neurologic Neurologic: Denies behavioral changes, Denies confusion, Denies dizziness, Denies frequent falls, Denies loss of vision, Denies numbness and Denies weakness Psychiatric Psychiatric: Denies anxiety, Denies behavioral changes, Denies confusion, Denies depression, Denies homicidal ideation and Denies suicidal ideation Endocrine Endocrine: Denies fatigue, Denies flushing and Denies palpitations Hematologic/Lymphatic Hematologic/Lymphatic: Denies easy bruising Allergic/Immunologic Allergic/Immunologic: Denies urticaria, Denies throat swelling and Denies wheezing Patient History <Sho Dudley PA-C - Last Filed: 07/21/24 14:29> Medical History Obstructive sleep apnea Arthritis Hx of tuberculosis Left inguinal hernia Low testosterone in male Prediabetes Hyperlipidemia Hand tendinitis Hearing loss Sleep apnea Change in facial mole PTSD (post-traumatic stress disorder) Depression Anxiety Generalized anxiety disorder Strain of tendon of left rotator cuff Lower back pain RLQ abdominal pain Right epididymitis Prostatitis Cervical strain, acute Hydrocele Inguinal hernia recurrent unilateral Testicular pain, right Back pain Neck pain, musculoskeletal Rupture of left tympanic membrane Surgical History H/O vasectomy [place] teeth removed Hx of right inguinal hernia repair (02/21/21) H/O hernia repair Family History Mother Diabetes mellitus Heart disease Father Diabetes mellitus Heart disease Social History marital status: number of children: 2 household members: spouse and children occupational status: employed and previously employed Previous occupational history: [employer] leisure activities: exercise Smoking Status: Former smoker Tobacco: How many years used: 19 quit status: quit date established alcohol intake: former substance use type: does not use and marijuana caffeine: Yes Smoking Status: Former smoker tobacco type: cigarettes and vaping alcohol intake frequency: 0-2 drinks per day Substance Use Type: marijuana Exam <Sho Dudley PA-C - Last Filed: 07/21/24 14:29> Narrative Exam Narrative: Const General:?cooperative, healthy appearing and comfortable [facility] [place] Head:?normal to inspection Ears:?hearing grossly normal bilaterally Nose:?external nose normal Face and sinus:?normal facial exam and sinuses nontender Mouth:?oral mucosae normal Throat:?posterior oropharynx normal Eyes General:?appearance normal, both eyes and all related structures Neck Neck:?normal visual inspection and no lymphadenopathy noted Resp Effort & Inspection:?normal respiratory effort Auscultation:?clear to auscultation bilaterally Cardio Rate:?regular rate Rhythm:?regular rhythm GI Abdomen is soft, nondistended, mildly tender to palpation in the lower quadrants. Neuro General:?patient alert, patient awake and patient oriented x3 Initial Vital Signs Initial Vital Signs: Vital Signs Temperature 99.1 F 07/20/24 15:21 Pulse Rate 94 H 07/20/24 15:21 Respiratory Rate 14 07/20/24 15:21 Blood Pressure 144/83 H 07/20/24 15:21 Pulse Oximetry 97 07/20/24 15:21 Oxygen Delivery Method Room Air 07/20/24 15:21 <Anyi Stephenson DO - Last Filed: 07/27/24 07:12> Initial Vital Signs Initial Vital Signs: Vital Signs Temperature 99.1 F 07/20/24 15:21 Pulse Rate 94 H 07/20/24 15:21 Respiratory Rate 14 07/20/24 15:21 Blood Pressure 144/83 H 07/20/24 15:21 Pulse Oximetry 97 07/20/24 15:21 Oxygen Delivery Method Room Air 07/20/24 15:21 Course <BEV Gómez Last Filed: 07/21/24 14:29> Orders Ordered: Discontinued Medications Ondansetron HCl (Ondansetron 4 Mg/2 Ml Inj) 4 mg IV NOW PRN PRN Reason: Nausea And Vomiting Ondansetron HCl (Ondansetron 4 Mg Odt) 4 mg PO NOW PRN PRN Reason: Nausea And Vomiting Vital Signs Vital signs: Vital Signs - 8 hr 07/20/24 15:21 Temperature 99.1 F Pulse Rate 94 H Respiratory Rate 14 Blood Pressure 144/83 H Pulse Oximetry 97 Oxygen Delivery Method Room Air <Anyi Stephenson DO - Last Filed: 07/27/24 07:12> Orders Ordered: Discontinued Medications Ondansetron HCl (Ondansetron 4 Mg/2 Ml Inj) 4 mg IV NOW PRN PRN Reason: Nausea And Vomiting Ondansetron HCl (Ondansetron 4 Mg Odt) 4 mg PO NOW PRN PRN Reason: Nausea And Vomiting Vital Signs Vital signs: Vital Signs - 8 hr 07/20/24 15:21 Temperature 99.1 F Pulse Rate 94 H Respiratory Rate 14 Blood Pressure 144/83 H Pulse Oximetry 97 Oxygen Delivery Method Room Air MDM - Abdominal Pain <Sho Dudley PA-C - Last Filed: 07/21/24 14:29> Lab Data 07/20/24 15:45 07/20/24 15:45 Labs: Lab Results 07/20/24 Range/Units 15:45 WBC 9.4 (4.5-11.0) X10^3/uL RBC 5.42 (4.5-5.9) X10^6/uL Hgb 16.1 (13.5-17.5) g/dL Hct 46.8 (41-53) % MCV 86.4 (80-100) fL MCH 29.6 (26-34) PG MCHC 34.3 (30-36) % RDW 12.8 (11.6-14.8) % Plt Count 296 (150-400) X10^3/uL Neut % (Auto) 64.8 (50-75) % Lymph % (Auto) 27.7 (25-40) % Horry % (Auto) 5.4 (3-14) % Eos % (Auto) 1.6 L (2-4) % Baso % (Auto) 0.5 (0-2) % Neut # (Auto) 6100 (2636-1982) /uL Lymph # (Auto) 2600 (8080-7516) /uL Horry # (Auto) 500 (0-900) /uL Eos # (Auto) 100 (0-450) /uL Baso # (Auto) 0 (0-100) /uL Sodium 140 (137-145) mmol/L Potassium 3.7 (3.4-5.1) mmol/L Chloride 108 H (98-107) mmol/L Carbon Dioxide 23 (22-32) mmol/L BUN 17 (9-20) mg/dL Creatinine 1.03 (0.66-1.25) mg/dL Estimated GFR > 60 (>60) mL/min BUN/Creatinine Ratio 16.5 (6-22) Glucose 156 H (70-100) mg/dL Calcium 9.3 (8.4-10.2) mg/dL Total Bilirubin 0.5 (0.2-1.3) mg/dL AST 37 (17-59) IU/L ALT 63 H (<50) IU/L Alkaline Phosphatase 66 (38-126) U/L Total Protein 7.5 (6.3-8.2) g/dL Albumin 4.6 (3.5-5.0) g/dL Globulin 2.9 (1.7-4.1) g/dL Albumin/Globulin Ratio 1.6 (1.0-2.8) Lipase 112 (23-300) U/L Point of care testing: Urine Dip Bedside Urine Glucose Negative Bedside Urine Bilirubin - Negative Bedside Urine Ketone - Negative Urine Specific Harlan 1.025 Bedside Urine Occult Blood - Negative Bedside Urine pH 6.0 Bedside Urine Protein - Negative Bedside Urine Urobilinogen - Negative Bedside Urine Nitrite - Negative Bedside Urine Leukocytes - Negative Esterase MDM Narrative Medical decision making narrative: 43-year-old male with past medical history inguinal hernia, status post bilateral inguinal hernia repair presents to the ED with 2 weeks of abdominal and testicular pain. Concern for urinary retention versus UTI versus complications from hernia repair versus testicular etiology versus other. A bladder scan showed less than 50 mL of retained urine. Obtained labs, UA, CT abdomen pelvis, scrotal ultrasound. Labs, UA unremarkable. CT abdomen pelvis shows a mild focal prominence of the left spermatic cord within the left pelvis shows before entering the inguinal canal, with surrounding inflammation. Is of uncertain etiology. No acute findings otherwise within the abdomen or pelvis. Ultrasound of the scrotum shows a heterogenous hypoattenuating area within the inferior left testicle measuring up to 1.9 cm with vascularity. Testicular neoplasm is in the differential. Recommend urology consultation. There is a moderate left hydrocele with debris. Prior left inguinal mesh hernia repair with possible wall defect measuring [address] Tejeda from Urology was consulted regarding the imaging findings. He recommends that patient follow-up with him in clinic on 07/23/2024 for further evaluation. He recommends no other intervention at this time. Discussed findings with patient, need to follow-up with urology. Patient agrees to follow-up as discussed. ED return precautions were discussed with patient. Patient verbalized understanding. Medical records reviewed: Yes <Anyi Stephenson, DO - Last Filed: 07/27/24 07:12> Lab Data Labs: Lab Results 07/20/24 Range/Units 15:45 WBC 9.4 (4.5-11.0) X10^3/uL RBC 5.42 (4.5-5.9) X10^6/uL Hgb 16.1 (13.5-17.5) g/dL Hct 46.8 (41-53) % MCV 86.4 (80-100) fL MCH 29.6 (26-34) PG MCHC 34.3 (30-36) % RDW 12.8 (11.6-14.8) % Plt Count 296 (150-400) X10^3/uL Neut % (Auto) 64.8 (50-75) % Lymph % (Auto) 27.7 (25-40) % Horry % (Auto) 5.4 (3-14) % Eos % (Auto) 1.6 L (2-4) % Baso % (Auto) 0.5 (0-2) % Neut # (Auto) 6100 (0180-9914) /uL Lymph # (Auto) 2600 (5034-6933) /uL Horry # (Auto) 500 (0-900) /uL Eos # (Auto) 100 (0-450) /uL Baso # (Auto) 0 (0-100) /uL Sodium 140 (137-145) mmol/L Potassium 3.7 (3.4-5.1) mmol/L Chloride 108 H (98-107) mmol/L Carbon Dioxide 23 (22-32) mmol/L BUN 17 (9-20) mg/dL Creatinine 1.03 (0.66-1.25) mg/dL Estimated GFR > 60 (>60) mL/min BUN/Creatinine Ratio 16.5 (6-22) Glucose 156 H (70-100) mg/dL Calcium 9.3 (8.4-10.2) mg/dL Total Bilirubin 0.5 (0.2-1.3) mg/dL AST 37 (17-59) IU/L ALT 63 H (<50) IU/L Alkaline Phosphatase 66 (38-126) U/L Total Protein 7.5 (6.3-8.2) g/dL Albumin 4.6 (3.5-5.0) g/dL Globulin 2.9 (1.7-4.1) g/dL Albumin/Globulin Ratio 1.6 (1.0-2.8) Lipase 112 (23-300) U/L Point of care testing: Urine Dip Bedside Urine Glucose Negative Bedside Urine Bilirubin - Negative Bedside Urine Ketone - Negative Urine Specific Harlan 1.025 Bedside Urine Occult Blood - Negative Bedside Urine pH 6.0 Bedside Urine Protein - Negative Bedside Urine Urobilinogen - Negative Bedside Urine Nitrite - Negative Bedside Urine Leukocytes - Negative Esterase Discharge Plan Departure Patient Disposition: Home Clinical Impression: Pain in scrotum or testicle Abdominal pain Qualifiers: Abdominal location: lower abdomen, unspecified Qualified Code(s): R10.30 - Lower abdominal pain, unspecified Instructions: DI for Abdominal Pain-Adult Activity Restrictions/Additional Instructions: You were evaluated in the ED today for abdominal and testicular pain. Your labs and urine were normal. Your CT scan and ultrasound showed some inflammation around the spermatic cord on the left side. Dr. Tejeda from Urology was consulted, he will see you in clinic on for further evaluation. Return to the ED if you have worsening symptoms. Prescriptions: No Action metoprolol succinate 25 mg tablet extended release 24 hr 25 mg PO BID Qty: 180 0RF meloxicam 15 mg tablet 15 mg PO DAILY duloxetine 20 mg capsule,delayed release(DR/EC) 20 mg PO BID cholecalciferol (vitamin D3) 50 mcg (2,000 unit) capsule 50 mcg PO DAILY Referrals: Anjel Orellana DO [Primary Care Provider] - Stand Alone Forms: Patient Portal/API, Work Release Note ED Sign-out <Anyi Stephenson DO - Last Filed: 07/27/24 07:12> Cosign ED Attending Cosignature Attestation: I was immediately available in the department for consultation. Case discussed, urology consulted.
--- NOTE | 2024-07-20 16:23 | DI.US.S_ITS ---
PROCEDURE: US SCROTUM INDICATIONS: Sporadic testicular pain TECHNIQUE: Real-time scanning was performed of the scrotum and testicles, with image documentation. Color and pulse Doppler interrogation was performed of both testicles. COMPARISON: None. FINDINGS: Right: Testicle is normal in size at 5.2 x 3.1 x 2.3 cm, and homogenous in echotexture. Macro phthisis are noted Epididymis is normal in overall size and morphology. No hydrocele or varicoceles. Overlying scrotal skin is normal in thickness. Scrotal pleural is noted measuring 5 mm. Left: Testicle is normal in size at 4.3 x 3.1 x 2.2 cm. There is a heterogeneous area within the inferior testicle with vascularity measuring 1.9 x 1.4 x 1.4 cm. Microlithiasis are noted. Epididymis is normal in overall size and morphology. Appendix teste measuring 5 mm. Moderate hydrocele. No varicoceles. Overlying scrotal skin is normal in thickness. Doppler: Color and pulse Doppler demonstrate normal and symmetric arterial flow in both testicles. Status post left inguinal mesh hernia repair. Possible hernia with defect measuring 1 cm. IMPRESSION: 1. Heterogeneous hypoattenuating area within the inferior left testicle measuring up to 1.9 cm with vascularity. Testicular neoplasm is in the differential. Recommend urology consultation. 2. Moderate left hydrocele with debris. 3. Prior left inguinal mesh hernia repair with possible wall defect measuring 1 cm. 4. Please see above for additional findings. Dictated by: Romel Gonzalez M.D. on 07/20/2024 at 17:30 Approved by: Romel Gonzalez M.D. on 07/20/2024 at 17:34
--- NOTE | 2024-07-20 16:23 | DI.CT.S_ITS ---
PROCEDURE: CT ABDOMEN PELVIS W CON INDICATIONS: periumbilical pain TECHNIQUE: After the administration of intravenous contrast, axial sections acquired from the lung bases to the pubic symphysis. Coronal and sagittal reformats were performed. For radiation dose reduction, the following was used: automated exposure control, adjustment of mA and/or kV according to patient size. COMPARISON: [facility], CT, ABDOMEN/PELVIS WITH CONTRAST, 02/08/2017, 1:01. FINDINGS: Image quality: Diagnostic. Lower Chest: No significant findings. ABDOMEN: Liver: No solid mass. Gallbladder: No radiopaque gallstones or wall thickening. Biliary ducts: No biliary dilation. Pancreas: No ductal dilation. Spleen: Size is within normal limits. Adrenal Glands: No adrenal nodules. Kidneys and Ureters: No hydronephrosis. No solid mass. No complex renal cystic lesion which requires follow up. Stomach and Bowel: Normal colonic caliber, without significant wall thickening. Normal appendix. Peritoneum: No abnormal intraperitoneal fluid. No free air. Ventral Wall: No significant ventral hernia. Abdominal Nodes: No retroperitoneal or mesenteric adenopathy by size criteria. Vessels: Aorta and inferior vena cava are normal in size. Mild atherosclerotic calcifications. PELVIS: Pelvic Organs: Mild focal prominence of the spermatic cord within the left pelvis just for enters the inguinal canal with surrounding inflammation (2/116).. Bladder: No bladder wall thickening, accounting for underdistention. Pelvic Nodes: No enlarged lymph nodes. Miscellaneous: No inguinal hernias are seen. Bones: No aggressive osseous abnormality. IMPRESSION: Mild focal prominence of the left spermatic cord within the left pelvis just before entering the inguinal canal surrounding inflammation. This is of uncertain etiology. Otherwise, no acute findings within the abdomen or pelvis. Dictated by: Romel Gonzalez M.D. on 07/20/2024 at 17:34 Approved by: Romel Gonzalez M.D. on 07/20/2024 at 17:39
== END 2024-07-20 18:34 | disposition home or self-care (01) ==
PROVIDERS: Emergency Medicine; Emergency Provider Student in an Organized Health Care Education/Training Program; PCP Family Medicine
DX: N50.812 Left testicular pain (principal); R10.30 Lower abdominal pain, unspecified; N49.1 Inflammatory disorders of spermatic cord, tunica vaginalis and vas deferens; Z98.890 Other specified postprocedural states; Z87.19 Personal history of other diseases of the digestive system
CPT/HCPCS: 36415; 51798; 74177; 76870; 80053; 81003; 83690; 85025; 93975; 99283; 99285; Q9967

== ENCOUNTER → 2024-07-25 10:00 | Outpatient (CLI) | payer OTHER, SELFPAY ==
--- NOTE | 2024-07-25 10:02 | DI.RAD.S_ITS ---
PROCEDURE: XR CHEST 2V INDICATIONS: 43 y/o M w/ left testicular mass TECHNIQUE: 2 views of the chest were acquired. COMPARISON: [facility], SON, XR CHEST 1V, 01/31/2024, 18:37. [facility], SON, CHEST 2 VIEW, 11/13/2015, 21:26. FINDINGS: Surgical changes and devices: None. Lungs and pleura: Questionable nodule in the right middle lung zone. Mediastinum: Mediastinal contours are normal. Heart size is normal. Bones and chest wall: No suspicious bony abnormalities. Soft tissues appear unremarkable. IMPRESSION: Questionable nodule in the right middle lung zone. Consider chest CT for confirmation. Dictated by: Monty Lassiter M.D. on 07/25/2024 at 11:45 Approved by: Monty Lassiter M.D. on 07/25/2024 at 11:47
[2024-07-25 11:39] LABS: Lactate Dehydrogenase 161 U/L (120-246)
[2024-07-25 11:55] LABS: HCG Quantitative /Beta subunit 10.35 mIU/mL (<2.40)
[2024-07-26 08:12] LABS: Alpha Fetoprotein 4.2 ng/mL (0.0-6.9)
== END ==
PROVIDERS: PCP Family Medicine; Referring Provider Urology; Visit Provider Urology
DX: N50.89 Other specified disorders of the male genital organs (principal); R91.1 Solitary pulmonary nodule; R39.9 Unspecified symptoms and signs involving the genitourinary system
CPT/HCPCS: 36415; 71046; 82105; 83615; 84702

== ENCOUNTER 2024-07-31 08:42 | Day surgery (SDC) | payer OTHER, SELFPAY ==
[2024-07-29 12:21] VITALS: BMI 29.7
--- NOTE | 2024-07-31 | PATH_ITS ---
[facility] Accession Number: [id number] No. of containers.. Tissue . 01 Material submitted: . testis - L TESTICAL / SPERMATIC CORD . 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 Tumor focality: Multifocal. Tumor size: -Greatest dimension of main tumor mass: 1.3 cm. -Greatest dimension of additional tumor nodules: Cannot be determined; multiple small foci ranging from 1 mm to 4 mm. 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 Tumor extent: Seminoma invades rete testis. Lymphatic and/or vascular invasion: Not identified. Margin status: All margins negative for tumor. Regional lymph node status: Not applicable (no regional lymph nodes submitted or found). . pTNM classification (AJCC 8th Edition): pT category: pT1 pN category: pN not assigned pM category: Not applicable . 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 -Spermatic cord changes consistent with reported prior surgical history. See comment. MRV 08/07/2024 1524 Local . 01 Comment: Dr. Rice also reviewed this case and agrees with the interpretation. Dr. Stringer attempted to contact Dr. Tejeda's office to discuss preliminary results on 08/07/2024. . 01 Electronically signed: . Merry Stringer MD, Pathologist NPI- [id number] . 01 Gross description: . Received in formalin with two patient identifiers and left testicles and spermatic cord, is an intact testis (6.3 x 4.9 x 4.9 cm) with attached spermatic cord (4.2 cm in length and up to 2.7 cm in diameter), all weighing 90 grams. The fascia is freely mobile and is inked green while the spermatic cord margin is inked blue. Bivalving the specimen reveals the epididymis to measure 4.2 x 0.7 cm. A possible nodule within the presumed epididymis is 1.3 x 0.7 x 0.7 cm. Sectioning reveals well-defined tubules containing cloudy purulent material. A firm variegated mass is identified in the testicular parenchyma measuring 1.7 x 1.2 x 0.7 cm. Swartz serous fluid is found descending the cavity of the tunica vaginalis with approximately 90 mL of fluid. [employer] sections are submitted as follows: . A1: Spermatic cord margin en face. A2: Additional spermatic cord. A3: Normal testis to purulent presumed epididymis. A4: Additional purulent presumed epididymis. A5: Normal testis and rete testis. A6: Normal parenchyma and unremarkable epididymis. A7: Normal parenchyma and distended tunica vaginalis cavity. A8: Additional wall of the distended tunica vaginalis cavity. ([id number]) . Additional sections of lesion (1.7 x 1.2 x 0.7 cm) are submitted as follows: . A9: Lesion to rete testis. A10: Lesion to epididymis. A11-A12: Lesion to tunica albuginea and vaginalis. A13: Additional hilar tissue adjacent to lesion. . No lymph nodes are identified. ([id number]) /MRV 08/07/2024 [facility]4 Local . 01 Microscopic: . Immunohistochemical stains were performed to characterize cells of interest. All control stains showed appropriate reactivity. . RESULTS: OCT3/4: Positive in both populations of the cells of interest. CD117: Negative in high grade of cells of interest. Variably positive in low grade cells of interest. CD30: Positive in the high-grade cells of interest. MARK: Positive in the high-grade cells of interest. D2-40: Negative in the high-grade cells of interest and positive in seminoma cells of interest. Also highlights lymphovascular spaces. Inhibin: Highlights Leydig cell hyperplasia. Glypican 3: Negative in both populations of cells of interest. . INTERPRETATION: The high-grade cells of interest are positive for OCT3/4, CD30, and keratin MARK, consistent with embryonal carcinoma. The multifocal scattered low grade cells of interest admixed with lymphocytes are positive for OCT3/4, CD117 and D2-40, consistent with seminoma. The absence of glypican 3 excludes yolk sac tumor. Inhibin stain highlights Leydig cell hyperplasia. . * This test was developed and the performance characteristics were validated by [employer]. It has not been cleared or approved by the U.S. Food and Drug Administration. . 01 Pathologist provided ICD-10: C62.12 . 01 CPT . 431171, P40065, [id number] Performed at: [address] [address], [place], [place] [id number] MD Cody Rios MD Phone: [phone]
[2024-07-31 09:17] VITALS: BP 149/93; PULSE 92; RESP 18; TEMP 36.8; O2SAT 99; BMI 28.6
[2024-07-31] MEDS: LACTATED RINGERS 1,000 ML 21 ML IV (09:28)
[2024-07-31] MEDS: ACETAMINOPHEN 325 MG TABLET 975 MG PO (09:30)
--- NOTE | 2024-07-31 10:26 | PM.PREOP ---
Pre-operative Note COVID-19 COVID-19 status: Not tested Interval Note History & Physical reviewed/Exam performed by Physician: Yes Changes to H&P: No
[2024-07-31] MEDS: CEFAZOLIN 2 GM/100 ML PREMIX 100 ML IV (11:02)
[2024-07-31] MEDS: SCOPOLAMINE 1 PATCH TOP (11:18)
[2024-07-31] MEDS: BUPIVACAINE 0.25% (PF) VIAL 30 ML INJ (11:20)
[2024-07-31] MEDS: LIDOCAINE 1% 20 ML INJ (11:20)
--- NOTE | 2024-07-31 11:22 | SUR.OPER ---
Supine on padded OR bed, head on pillow, arms secured on padded arm boards at <90 degrees abduction, legs uncrossed, safety belt at thigh, tape over blanket over lower legs.
[2024-07-31 12:44] VITALS: BP 151/99; PULSE 107; RESP 21; TEMP 36.7; O2SAT 96
[2024-07-31 12:49] VITALS: BP 143/99; PULSE 109; RESP 10; O2SAT 94
[2024-07-31 12:54] VITALS: BP 141/99; PULSE 104; RESP 19; O2SAT 94
--- NOTE | 2024-07-31 13:01 | PM.OP.1 ---
Procedure & Clinicians Procedure: Left radical orchiectomy Same procedure as scheduled: Yes Indications: 43 y/o M w/ a physical exam and imaging concerning for a left testicular mass. Surgeon: Brigido Tejeda Click Yes if Unassisted: Yes Anesthesia Type: General Operative Notes Findings: Moderate sized left hydrocele, edematous and difficult to dissect tissue around left spermatic cord Closure Type: primary Specimen(s): other (Left testicle and spermatic cord) Estimated Blood Loss (mL): 20 Blood products transfused: none Procedure in detail: Patient was identified in the preoperative holding area and consent confirmed. He was then brought to the operating room and placed supine on the operating room table where general anesthesia was induced. All bony prominences were then properly padded and he was prepped and draped in the standard sterile fashion. A surgical timeout was conducted and all members of the operating team were in agreement. A 4cm transverse incision was marked 2 fingerbreadths superior to his left external inguinal ring. This was then incised using a 15 blade. Dissection was then carried down through the subcutaneous tissue using bovie electrocautery. Radu's fascia was identified and transected. The fibers of the external oblique fascia were noted. A small hole was made through this fascia using the 15 blade. This was then extended down through his external inguinal ring using curved Hand scissors. The left spermatic cord was then grasped with the Negin. It was freed from surrounding tissues using blunt dissection. It was then encircled twice with a [place] drain that was utilized as a tourniquet. The left testicle was then delivered onto the operative field. The gubernacular attachments were freed up from the dependent portion of the scrotum. No injury to the skin of the scrotum was noted. The spermatic cord was then dissected more proximally and secured with two Mercedes clamps. The spermatic cord was then ligated using curved Hand scissors between the two aforementioned clamps. The spermatic cord was then into two packets. Of note, the left testicle and spermatic cord were noted to be slightly edematous and difficult to dissect throughout the entirety of the procedure. Each packet was suture ligated using 0-silk ties. Hemostasis was evaluated and noted to be excellent. The wound was irrigated with sterile water. Hemostasis was again evaluated and noted to be excellent. One end of each tie was left long for possible RPLND in the future. The external oblique fascia was reapproximated using 3-0 Vicryl in a running fashion. Of note, the ilioinguinal nerve was never identified throughout the entirety of the procedure. Deep dermal sutures of 3-0 Vicryl were performed in simple interrupted fashion. The skin edges were reapproximated utilizing 4-0 Monocryl in a subcuticular fashion. The skin was then dressed with Dermabond. A total of 20cc of 1:1 mixture of 0.5% Marcaine plain and 1% Lidocaine plain was used for local anesthetic. A jock strap was then placed on the patient. Anesthesia was reversed, he was extubated in the OR and transferred to the PACU in stable condition for recovery. Complications: none Post-operative Condition: stable Disposition: PACU Plan for aftercare: Discharge home from PACU. Will return to Urology clinic to discuss his pathology results and the results of his Chest CT.
[2024-07-31 13:03] VITALS: BP 144/93; PULSE 94; RESP 14; TEMP 36.6; O2SAT 98
[2024-07-31] MEDS: OXYCODONE IR 5 MG TABLET PO (13:43)
[2024-07-31] MEDS: ONDANSETRON 4 MG/2 ML INJ IV (13:43)
[2024-07-31 13:51] VITALS: BP 146/89; PULSE 72; RESP 16; O2SAT 98
== END 2024-07-31 13:57 | disposition home or self-care (01) ==
PROVIDERS: PCP Family Medicine; Referring Provider Urology; Visit Provider Urology
PROC: (CPT 54530; principal; 2024-07-31 10:45)
DX: C62.12 Malignant neoplasm of descended left testis (principal); N43.3 Hydrocele, unspecified
CPT/HCPCS: 54530; J0690; J1100; J1171; J1885; J2250; J2405; J2704; J3010; J3490

== ENCOUNTER → 2024-08-09 11:38 | Outpatient (CLI) | payer OTHER, SELFPAY ==
--- NOTE | 2024-08-09 11:41 | DI.CT.S_ITS ---
PROCEDURE: CT CHEST WO CON INDICATIONS: 43 y/o M w/ left testicular mass, poss pulmonary nodule. TECHNIQUE: Noncontrast 5 mm thick sections acquired from the pulmonary apices to the posterior costophrenic angles. 1 mm lung window, 5 mm thick coronal and sagittal and 7 mm axial MIP reformats were then acquired. For radiation dose reduction, the following was used: automated exposure control, adjustment of mA and/or kV according to patient size. COMPARISON: [facility], CR, XR CHEST 2V, 07/25/2024, 11:02. FINDINGS: Image quality: Diagnostic. Lower Neck: No enlarged lymph nodes. Thyroid: No thyroid nodules which require sonographic follow up, per consensus guidelines. Axillae: No enlarged lymph nodes. Chest Wall: Unremarkable. Bones: Unremarkable. Lungs and Pleura: No pneumothorax or pleural effusions. 3 mm fissural nodule, likely a benign lymph node, right major fissure, image 117 of series 3. No suspicious pulmonary nodules. Heart: Heart size is normal. No pericardial effusion. Thoracic Vessels: The aorta and pulmonary arteries demonstrate normal size. Mediastinum and Halley: No enlarged lymph nodes. Esophagus: No wall thickening. No hiatal hernia. Upper Abdomen: Visualized upper abdomen solid organs and bowel loops appear normal. IMPRESSION: No findings suspicious for malignancy in the chest. Dictated by: Bhavin Durand M.D. on 08/09/2024 at 13:28 Approved by: Bhavin Durand M.D. on 08/09/2024 at 13:30
== END ==
PROVIDERS: PCP Family Medicine; Referring Provider Urology; Visit Provider Urology
DX: N50.89 Other specified disorders of the male genital organs (principal); R91.1 Solitary pulmonary nodule
CPT/HCPCS: 71250

== ENCOUNTER → 2024-09-22 11:47 | Outpatient (CLI) | payer OTHER, SELFPAY ==
[2024-09-22 13:51] LABS: Lactate Dehydrogenase 188 U/L (120-246)
[2024-09-22 14:07] LABS: HCG Quantitative /Beta subunit < 2.39 mIU/mL (<2.40)
[2024-09-23 07:07] LABS: Alpha Fetoprotein 4.7 ng/mL (0.0-6.9)
== END ==
LOC: LAB 11:49
PROVIDERS: PCP Family Medicine; Referring Provider Urology; Visit Provider Urology
DX: C62.90 Malignant neoplasm of unspecified testis, unspecified whether descended or undescended (principal)
CPT/HCPCS: 36415; 82105; 83615; 84702

== ENCOUNTER 2024-09-30 11:53 | Emergency (ER) | payer OTHER, SELFPAY ==
[2024-09-30 12:17] VITALS: BP 124/81; PULSE 74; RESP 18; TEMP 36.7; O2SAT 98; BMI 29.0
--- NOTE | 2024-09-30 12:29 | DI.RAD.S_ITS ---
PROCEDURE: XR RIBS RT MIN 3V W CXR 1V INDICATIONS: right anterior rib pain TECHNIQUE: 2 views of the ribs were acquired, along with a single view chest. COMPARISON: [facility], CT, CT CHEST WO CON, 08/09/2024, 11:48. FINDINGS: Surgical changes and devices: None. Bones and chest wall: No acute displaced fracture. Lungs and pleura: No significant pneumothorax. No dense airspace disease or pleural effusions. Mediastinum: Normal heart size IMPRESSION: No displaced rib fracture or pneumothorax. If there is high concern for occult injury, consider repeat radiography or cross-sectional imaging. Dictated by: Lakhwinder Diamond M.D. on 09/30/2024 at 12:00 Approved by: Lakhwinder Diamond M.D. on 09/30/2024 at 12:01
--- NOTE | 2024-09-30 13:06 | ED.GENADULT ---
HPI - General Adult General Chief complaint: Upper Respiratory Symptoms Stated complaint: Pain in Ribs after Sneeze, Coughing Time Seen by Provider: 09/30/24 12:28 Source: patient Mode of arrival: Ambulatory History of Present Illness HPI narrative: 43-year-old male who is here for evaluation of right-sided rib discomfort. Patient states he had an acute onset of the rib pain after he sneezed and coughed yesterday. He would his head turned to the side. Has been using heat over the area. It was rather pinpoint in his worse with palpation and movement. He was coughing but no fevers. Related Data Home Medications Medication Instructions Recorded Confirmed meloxicam 15 mg tablet 15 mg PO DAILY 12/20/22 09/29/24 cholecalciferol (vitamin D3) 50 50 mcg PO DAILY 07/23/24 09/29/24 mcg (2,000 unit) capsule duloxetine 20 mg capsule,delayed 20 mg PO BID 07/23/24 09/29/24 release Previous Rx's Medication Instructions Recorded oxycodone 5 mg tablet 5 mg PO Q8H PRN pain (scale score 07/31/24 7-10) #10 tabs metoprolol tartrate 25 mg tablet 25 mg PO BID #60 tabs 09/15/24 mupirocin 2 % topical ointment 1 applic topical TID #15 grams 09/15/24 Allergies Allergy/AdvReac Type Severity Reaction Status Date / Time tramadol [TRAMADOL] AdvReac Unknown Night Verified 09/30/24 12:22 Terrors Review of Systems Review of Systems ROS Unobtainable: All systems reviewed & are unremarkable except as noted in HPI and below Patient History Medical History Obstructive sleep apnea Arthritis Hx of tuberculosis Left inguinal hernia Low testosterone in male Prediabetes Hyperlipidemia Hand tendinitis Hearing loss Sleep apnea Change in facial mole PTSD (post-traumatic stress disorder) Depression Anxiety Generalized anxiety disorder Strain of tendon of left rotator cuff Lower back pain RLQ abdominal pain Right epididymitis Prostatitis Cervical strain, acute Hydrocele Inguinal hernia recurrent unilateral Testicular pain, right Back pain Neck pain, musculoskeletal Rupture of left tympanic membrane Surgical History History of left inguinal hernia repair H/O vasectomy [place] teeth removed Hx of right inguinal hernia repair (02/21/21) Family History Mother Diabetes mellitus Heart disease Father Diabetes mellitus Heart disease Social History marital status: number of children: 2 household members: spouse and children occupational status: employed and previously employed Previous occupational history: [employer] leisure activities: exercise Smoking Status: Former smoker Tobacco: How many years used: 19 quit status: quit date established alcohol intake: former substance use type: does not use and marijuana caffeine: Yes Smoking Status: Former smoker tobacco type: cigarettes and vaping alcohol intake frequency: 0-2 drinks per day Exam Initial Vital Signs Initial Vital Signs: Vital Signs Temperature 98.0 F 09/30/24 12:17 Pulse Rate 74 09/30/24 12:17 Respiratory Rate 18 09/30/24 12:17 Blood Pressure 124/81 09/30/24 12:17 Pulse Oximetry 98 09/30/24 12:17 Oxygen Delivery Method Room Air 09/30/24 12:17 Const General: cooperative, comfortable and No ill appearing HENTX Head: normal to inspection Chest Other: Discomfort to palpation right anterior lower ribs. No crepitus felt. Resp Effort & Inspection: normal respiratory effort Auscultation: clear to auscultation bilaterally Skin General: no rashes or lesions noted Course Orders Ordered: ED Orders 09/30/24 12:29 XR ribs RT min 3V w CXR1V Stat Vital Signs Vital signs: Vital Signs - 8 hr 09/30/24 12:17 Temperature 98.0 F Pulse Rate 74 Respiratory Rate 18 Blood Pressure 124/81 Pulse Oximetry 98 Oxygen Delivery Method Room Air Medical Decision Making Imaging Data rib X-ray: Radiologist's Impression: PROCEDURE: XR RIBS RT MIN 3V W CXR 1V INDICATIONS: right anterior rib pain TECHNIQUE: 2 views of the ribs were acquired, along with a single view chest. COMPARISON: [facility], CT, CT CHEST WO CON, 08/09/2024, 11:48. FINDINGS: Surgical changes and devices: None. Bones and chest wall: No acute displaced fracture. Lungs and pleura: No significant pneumothorax. No dense airspace disease or pleural effusions. Mediastinum: Normal heart size IMPRESSION: No displaced rib fracture or pneumothorax. If there is high concern for occult injury, consider repeat radiography or cross-sectional imaging. MDM Narrative Medical decision making narrative: No respiratory distress. Not hypoxic. X-ray shows no underlying lung pathology. No displaced rib fracture noted. Had a discussion with the patient regarding his symptoms. Will discharge home with conservative measures for now. He was given return precautions. He expressed understanding and agreement. Discharge Plan Departure Patient Disposition: Home Clinical Impression: Rib pain on right side Activity Restrictions/Additional Instructions: You can take Tylenol and/or ibuprofen for discomfort. Putting some pressure over the area if you have to cough and sneeze can sometimes be helpful as well. Return to the emergency department for new or worsening symptoms. Prescriptions: No Action mupirocin 2 % ointment 1 applic topical TID Qty: 15 0RF metoprolol tartrate 25 mg tablet 25 mg PO BID Qty: 60 0RF meloxicam 15 mg tablet 15 mg PO DAILY oxycodone 5 mg tablet 5 mg PO Q8H PRN (Reason: pain (scale score 7-10)) Qty: 10 0RF duloxetine 20 mg capsule,delayed release(DR/EC) 20 mg PO BID cholecalciferol (vitamin D3) 50 mcg (2,000 unit) capsule 50 mcg PO DAILY Referrals: Anjel Orellana DO [Primary Care Provider] - Stand Alone Forms: Patient Portal/API/Survey
[2024-09-30 13:19] VITALS: BP 115/81; PULSE 70; RESP 20; TEMP 37; O2SAT 100
== END 2024-09-30 13:20 | disposition home or self-care (01) ==
PROVIDERS: Emergency Provider Emergency Medicine; PCP Family Medicine
DX: R07.81 Pleurodynia (principal)
CPT/HCPCS: 71101; 99281; 99283

== ENCOUNTER → 2024-10-11 08:00 | Outpatient (CLI) | payer OTHER, SELFPAY ==
--- NOTE | 2024-10-11 08:02 | DI.CT.S_ITS ---
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 Coronal and sagittal reformats were performed. For radiation dose reduction, the following was used: automated exposure control, adjustment of mA and/or kV according to patient size. COMPARISON: [facility], CT, ABDOMEN/PELVIS WITH CONTRAST, 02/08/2017, 1:01. [facility], CT, CT ABDOMEN PELVIS W CON, 07/20/2024, 16:58. FINDINGS: Image quality: Diagnostic. Lower Chest: No significant findings. ABDOMEN: Liver: No solid mass. Gallbladder: No radiopaque gallstones or wall thickening. Biliary ducts: No biliary dilation. Pancreas: No ductal dilation. Spleen: Size is within normal limits. Adrenal Glands: No adrenal nodules. Kidneys and Ureters: No hydronephrosis. No solid mass. No complex renal cystic lesion which requires follow up. Stomach and Bowel: There is scattered colonic diverticula. Focal area of descending colonic thickening the seen on series 2 images 71 through 76 are present. No associated inflammatory change. Peritoneum: No abnormal intraperitoneal fluid. No free air. Ventral Wall: No significant ventral hernia. Abdominal Nodes: No retroperitoneal or mesenteric adenopathy by size criteria. Vessels: Aorta and inferior vena cava are normal in size. PELVIS: Pelvic Organs: Unremarkable. Bladder: No bladder wall thickening, accounting for underdistention. Pelvic Nodes: No enlarged lymph nodes. Miscellaneous: No inguinal hernias are seen. Bones: Scattered areas of sclerosis are identified in the left acetabulum, right iliac, right femoral head, left posterior iliac as well as scattered vertebral bodies. While some lesions are stable compared to prior exams, several new lesions have developed since 2017 as well as enlargement of several other lesions including the left acetabular lesion. IMPRESSION: Focal area of descending colonic thickening without inflammatory change. This may be charter representative peristaltic activity. However, given history of cystic at the cancer, interval follow-up is recommended to document resolution. Scattered areas of sclerosis as identified above. There has been mild progressive changes since 2017. This is all overall nonspecific and likely represent bone islands. However, as clinically indicated, given history of testicular cancer, bone scan may be obtained on a nonemergent basis. Dictated by: Melissa Liu M.D. on 10/11/2024 at 9:50 Approved by: Melissa Liu M.D. on 10/11/2024 at 10:00
== END ==
PROVIDERS: PCP Family Medicine; Referring Provider Urology; Visit Provider Urology
DX: C62.12 Malignant neoplasm of descended left testis (principal); M89.9 Disorder of bone, unspecified; K57.90 Diverticulosis of intestine, part unspecified, without perforation or abscess without bleeding
CPT/HCPCS: 74177; Q9967

== ENCOUNTER → 2024-11-25 07:25 | Outpatient (CLI) | payer OTHER, SELFPAY ==
--- NOTE | 2024-11-25 07:26 | DI.CT.S_ITS ---
PROCEDURE: CT ABDOMEN PELVIS W CON INDICATIONS: Left testicular cancer TECHNIQUE: After the administration of intravenous contrast, axial sections acquired from the lung bases to the pubic symphysis. Coronal and sagittal reformats were performed. For radiation dose reduction, the following was used: automated exposure control, adjustment of mA and/or kV according to patient size. COMPARISON: [facility], CT, CT ABDOMEN PELVIS W CON, 07/20/2024, 16:58. [facility], CT, CT ABDOMEN PELVIS W CON, 10/11/2024, 8:06. FINDINGS: Image quality: Diagnostic. Lower Chest: No significant findings. ABDOMEN: Liver: No solid mass. Gallbladder: No radiopaque gallstones or wall thickening. Biliary ducts: No biliary dilation. Pancreas: No ductal dilation. Spleen: Size is within normal limits. Adrenal Glands: No adrenal nodules. Kidneys and Ureters: No hydronephrosis. No solid mass. No complex renal cystic lesion which requires follow up. Stomach and Bowel: Normal colonic caliber, without significant wall thickening. Colonic diverticulosis without evidence of diverticulitis. Peritoneum: No abnormal intraperitoneal fluid. No free air. Ventral Wall: No significant ventral hernia. Abdominal Nodes: No retroperitoneal or mesenteric adenopathy by size criteria. Vessels: Aorta and inferior vena cava are normal in size. PELVIS: Pelvic Organs: Left orchiectomy. Bladder: No bladder wall thickening, accounting for underdistention. Pelvic Nodes: No enlarged lymph nodes. Miscellaneous: No inguinal hernias are seen. Bones: No aggressive osseous abnormality. Stable dense bony lesions IMPRESSION: Left orchiectomy. No retroperitoneal adenopathy. Stable dense bony lesions. Dictated by: Monty Lassiter M.D. on 11/25/2024 at 16:39 Approved by: Monty Lassiter M.D. on 11/25/2024 at 16:43
--- NOTE | 2024-11-25 07:26 | DI.RAD.S_ITS ---
PROCEDURE: XR CHEST 2V INDICATIONS: 43 y/o M w/ left testicular cancer TECHNIQUE: 2 views of the chest were acquired. COMPARISON: [facility], CR, XR CHEST 2V, 07/25/2024, 11:02. [facility], CR, XR CHEST 1V, 01/31/2024, 18:37. FINDINGS: Surgical changes and devices: None. Lungs and pleura: Lungs are clear. No pleural effusions or pneumothorax. Mediastinum: Mediastinal contours are normal. Heart size is normal. Bones and chest wall: No suspicious bony abnormalities. Soft tissues appear unremarkable. IMPRESSION: No significant pulmonary nodules. Dictated by: Monty Lassiter M.D. on 11/25/2024 at 16:39 Approved by: Monty Lassiter M.D. on 11/25/2024 at 16:39
[2024-11-25 08:15] LABS: Lactate Dehydrogenase 173 U/L (120-246)
[2024-11-25 08:31] LABS: HCG Quantitative /Beta subunit < 2.39 mIU/mL (<2.40)
[2024-11-26 07:09] LABS: Alpha Fetoprotein 5.2 ng/mL (0.0-6.9)
== END ==
PROVIDERS: PCP Family Medicine; Referring Provider Urology; Visit Provider Urology
DX: C62.12 Malignant neoplasm of descended left testis (principal); M89.9 Disorder of bone, unspecified; K57.90 Diverticulosis of intestine, part unspecified, without perforation or abscess without bleeding
CPT/HCPCS: 36415; 71046; 74177; 82105; 83615; 84702; Q9967

== ENCOUNTER 2024-12-09 11:53 | Emergency (ER) | payer OTHER, SELFPAY ==
[2024-12-09 11:55] VITALS: BP 163/102; PULSE 78; RESP 20; TEMP 37; O2SAT 98; BMI 29.7
--- NOTE | 2024-12-09 12:03 | EKG_ITS ---
[address] [address] Test Date: 2024-12-09 Pat Name: Tha Hamilton Department: [facility] Room: Gender: Male [employer]: YESY : [id number] Requested By: Order Number: [id number] Reading MD: Eliel Portillo Measurements Intervals [place] Rate: 72 P: 47 [place]: 144 QRS: 34 QRSD: 86 T: 38 QT: 376 QTc: 411 Interpretive Statements Normal sinus rhythm Electronically Signed On 12-12-2024 18:28:22 PDT by Eliel Portillo
[2024-12-09 12:33] LABS: Add Manual Diff / Slide Review NO; Basophils Absolute Auto 0 /uL (0-100); Basophils Percent Auto 0.4 % (0-2); Eosinophils Absolute Auto 100 /uL (0-450); Eosinophils Percent Auto 1.2 % (2-4); Hematocrit 46.1 % (41-53); Hemoglobin 15.8 g/dL (13.5-17.5); Lymphocytes Absolute Auto 2800 /uL (1100-4500); Lymphocytes Percent Auto 30.2 % (25-40); Mean Corpuscular HGB Conc 34.3 % (30-36); Mean Corpuscular Hemoglobin 29.7 PG (26-34); Mean Corpuscular Volume 86.5 fL (80-100); Monocytes Absolute Auto 700 /uL (0-900); Monocytes Percent Auto 7.2 % (3-14); Neutrophils Absolute Auto 5600 /uL (1500-7000); Platelet Count 287 X10^3/uL (150-400); Red Blood Cell Count 5.33 X10^6/uL (4.5-5.9); Red Cell Distribution Width 12.4 % (11.6-14.8); White Blood Cell Count 9.2 X10^3/uL (4.5-11.0)
[2024-12-09 12:41] LABS: Alanine Aminotransferase 63 IU/L (<50); Albumin 4.7 g/dL (3.5-5.0); Albumin Globulin Ratio 1.5 (1.0-2.8); Alkaline Phosphatase 70 U/L (38-126); Aspartate Aminotransferase 39 IU/L (17-59); BUN Creatinine Ratio 15.5 (6-22); Bilirubin Total 0.6 mg/dL (0.2-1.3); Blood Urea Nitrogen 16 mg/dL (9-20); Carbon Dioxide 24 mmol/L (22-32); Chloride 105 mmol/L (98-107); Estimated Glomerular Filt Rate > 60 mL/min (>60); Globulin 3.2 g/dL (1.7-4.1); Glucose 105 mg/dL (70-100); HEMOLYSIS < 15 (0-50); Lipase 80 U/L (23-300); Potassium 4.2 mmol/L (3.4-5.1); Sodium 139 mmol/L (137-145); Total Protein 7.9 g/dL (6.3-8.2)
--- NOTE | 2024-12-09 13:28 | ED.GENADULT ---
HPI - General Adult General Chief complaint: Abdominal Pain Stated complaint: Lower L back/hip pain Time Seen by Provider: 12/09/24 12:44 Source: patient Mode of arrival: Ambulatory History of Present Illness HPI narrative: 44-year-old gentleman with a history of testicular cancer diagnosed in June of 2024, left testicle removed, CT scan 2 weeks ago showed no acute abnormalities. He presents complaining of lower quadrant/CVA/testicular pain that has been present for 24 hours. He notes that over the last week he has returned to doing some rollerblading and wondering if that might have exacerbated symptoms. He has not complaining of fevers, diarrhea or upper abdominal pain. Related Data Home Medications Medication Instructions Recorded Confirmed meloxicam 15 mg tablet 15 mg PO DAILY 12/20/22 11/27/24 cholecalciferol (vitamin D3) 50 50 mcg PO DAILY 07/23/24 11/27/24 mcg (2,000 unit) capsule duloxetine 20 mg capsule,delayed 20 mg PO BID 07/23/24 11/27/24 release penicillin V potassium 250 mg 250 mg PO BID 11/27/24 11/27/24 tablet Previous Rx's Medication Instructions Recorded metoprolol tartrate 25 mg tablet 25 mg PO BID #60 tabs 09/15/24 gabapentin 300 mg capsule 300 mg PO BID #60 caps 12/09/24 oxycodone 5 mg tablet 5 mg PO Q6H PRN pain #20 tabs 12/09/24 Allergies Allergy/AdvReac Type Severity Reaction Status Date / Time tramadol [TRAMADOL] AdvReac Unknown Night Verified 11/09/24 07:51 Terrors Review of Systems Review of Systems Narrative: Pertinent positive and negative findings as per HPI Patient History Medical History Obstructive sleep apnea Arthritis Hx of tuberculosis Left inguinal hernia Low testosterone in male Prediabetes Hyperlipidemia Hand tendinitis Hearing loss Sleep apnea Change in facial mole PTSD (post-traumatic stress disorder) Depression Anxiety Generalized anxiety disorder Strain of tendon of left rotator cuff Lower back pain RLQ abdominal pain Right epididymitis Prostatitis Cervical strain, acute Hydrocele Inguinal hernia recurrent unilateral Testicular pain, right Back pain Neck pain, musculoskeletal Rupture of left tympanic membrane Surgical History History of left inguinal hernia repair H/O vasectomy [place] teeth removed Hx of right inguinal hernia repair (02/21/21) Family History Mother Diabetes mellitus Heart disease Father Diabetes mellitus Heart disease Social History marital status: number of children: 2 household members: spouse and children occupational status: employed and previously employed Previous occupational history: [employer] AND [employer] leisure activities: exercise Smoking Status: Former smoker Tobacco: How many years used: 19 quit status: quit date established alcohol intake: former substance use type: does not use and marijuana caffeine: Yes Smoking Status: Former smoker tobacco type: cigarettes and vaping alcohol intake frequency: 0-2 drinks per day Exam Initial Vital Signs Initial Vital Signs: Vital Signs Temperature 98.6 F 12/09/24 11:55 Pulse Rate 78 12/09/24 11:55 Respiratory Rate 20 12/09/24 11:55 Blood Pressure 163/102 H 12/09/24 11:55 Pulse Oximetry 98 12/09/24 11:55 Oxygen Delivery Method Room Air 12/09/24 11:55 General: Alert appropriate in obvious pain but completely cooperative Respiratory: Able to speak in full sentences, no obvious respiratory distress Abdomen: No reproducible CVA pain. No reproducible lower quadrant pain. Inguinal canal is not tender to palpation. The vascular base on the left side is not particularly tender to specific palpation, no redness or inflammation into the scrotum. Right testicle is not painful Skin: No obvious rashes, warm and dry Neurologic: Grossly intact no obvious asymmetries or abnormalities Psych: appropriate insight and affect, cooperative Course Orders Ordered: Discontinued Medications Gabapentin (Gabapentin 300 Mg Capsule) 300 mg PO NOW ONE Stop: 12/09/24 13:47 Last Admin: 12/09/24 13:53 Dose: 300 mg Documented By: Ketorolac Tromethamine (Ketorolac 30 Mg/Ml Vial) 15 mg IV NOW ONE Stop: 12/09/24 13:47 Last Admin: 12/09/24 13:53 Dose: 15 mg Documented By: Ondansetron HCl (Ondansetron 4 Mg/2 Ml Inj) 4 mg IV NOW PRN PRN Reason: Nausea And Vomiting Ondansetron HCl (Ondansetron 4 Mg Odt) 4 mg PO NOW PRN PRN Reason: Nausea And Vomiting Vital Signs Vital signs: Vital Signs - 8 hr 12/09/24 11:55 Temperature 98.6 F Pulse Rate 78 Respiratory Rate 20 Blood Pressure 163/102 H Pulse Oximetry 98 Oxygen Delivery Method Room Air Medical Decision Making Lab Data 12/09/24 12:20 12/09/24 12:20 Labs: Lab Results 12/09/24 Range/Units 12:20 WBC 9.2 (4.5-11.0) X10^3/uL RBC 5.33 (4.5-5.9) X10^6/uL Hgb 15.8 (13.5-17.5) g/dL Hct 46.1 (41-53) % MCV 86.5 (80-100) fL MCH 29.7 (26-34) PG MCHC 34.3 (30-36) % RDW 12.4 (11.6-14.8) % Plt Count 287 (150-400) X10^3/uL Neut % (Auto) 61.0 (50-75) % Lymph % (Auto) 30.2 (25-40) % [place] % (Auto) 7.2 (3-14) % Eos % (Auto) 1.2 L (2-4) % Baso % (Auto) 0.4 (0-2) % Neut # (Auto) 5600 (1680-7947) /uL Lymph # (Auto) 2800 (0550-4358) /uL [place] # (Auto) 700 (0-900) /uL Eos # (Auto) 100 (0-450) /uL Baso # (Auto) 0 (0-100) /uL Sodium 139 (137-145) mmol/L Potassium 4.2 (3.4-5.1) mmol/L Chloride 105 (98-107) mmol/L Carbon Dioxide 24 (22-32) mmol/L BUN 16 (9-20) mg/dL Creatinine 1.03 (0.66-1.25) mg/dL Estimated GFR > 60 (>60) mL/min BUN/Creatinine Ratio 15.5 (6-22) Glucose 105 H (70-100) mg/dL Calcium 10.0 (8.4-10.2) mg/dL Total Bilirubin 0.6 (0.2-1.3) mg/dL AST 39 (17-59) IU/L ALT 63 H (<50) IU/L Alkaline Phosphatase 70 (38-126) U/L Total Protein 7.9 (6.3-8.2) g/dL Albumin 4.7 (3.5-5.0) g/dL Globulin 3.2 (1.7-4.1) g/dL Albumin/Globulin Ratio 1.5 (1.0-2.8) Lipase 80 (23-300) U/L Urine Dip Bedside Urine Glucose Negative Bedside Urine Bilirubin - Negative Bedside Urine Ketone - Negative Urine Specific [place] 1.015 Bedside Urine Occult Blood - Negative Bedside Urine pH 7.0 Bedside Urine Protein - Negative Bedside Urine Urobilinogen - Negative Bedside Urine Nitrite - Negative Bedside Urine Leukocytes - Negative Esterase Point of care testing: Urine Dip Bedside Urine Glucose Negative Bedside Urine Bilirubin - Negative Bedside Urine Ketone - Negative Urine Specific [place] 1.015 Bedside Urine Occult Blood - Negative Bedside Urine pH 7.0 Bedside Urine Protein - Negative Bedside Urine Urobilinogen - Negative Bedside Urine Nitrite - Negative Bedside Urine Leukocytes - Negative Esterase MDM Narrative Medical decision making narrative: CC: 24 hours of left flank/lower quadrant/inguinal/scrotal pain Complicating co-morbidities: Left orchiectomy for testicular cancer in June Data collected from: patient Medical records reviewed: Reviewed urologic records Differential considered: Infection, musculoskeletal pain due to increased activity, neuropathic pain post orchiectomy, kidney stone, diverticulitis, any type of metastatic disease in light of a normal CT scan 2 weeks ago is unlikely Exam documented above, pertinent findings include: Patient is in obvious pain however physical exam and objective findings are benign Lab Test results independently reviewed as above. Pertinent findings: CBC is unremarkable, no leukocytosis Chemistries are reassuring Imaging studies independently reviewed: CT scan of the abdomen and pelvis done on 11/25 is reviewed in detail and in real-time with Dr. Tejeda. No evidence of stone developing in the kidney at that time to suggest this could be an acute kidney stone. Given his exam diverticulitis is less likely. Given his upcoming testicular cancer treatment with the additional imaging anticipated repeating a CT scan today is not indicated and will not increase diagnostic yield Consultations: Urology, Dr. Tejeda Treatments: IV Toradol, oral gabapentin Discussion: 44-year-old gentleman with recent orchiectomy, recent increase in rollerblading which may be causing irritation at his previous surgical site. 24 hours of significant increased pain that unfortunately, may well be neuropathic pain. Patient is aware of the possibility. Care is reviewed with his urologist. Patient is already on meloxicam as well as duloxetine taking Tylenol intermittently and pain is not controlled. We did give him a dose of IV Toradol for immediate pain control and will also have him start gabapentin 300 mg twice a day for neuropathic pain. He notes he has been on gabapentin successful in the past. First dose is given in the ER. Will also give him a small prescription for Percocet for severe pain to use for this acute setting. He will follow up with Urology as previously scheduled. There was no indication for additional imaging studies or hospitalization and he will be discharged Discharge Plan Departure Patient Disposition: Home Clinical Impression: Neuropathic pain, Acute left flank pain Instructions: Phantom Limb Syndrome Activity Restrictions/Additional Instructions: Thank you for coming in today I hope that the majority of the pain that you are experiencing right now is simply inflammation and irritation after getting back to your rollerblading routine a bit too quickly. I am concerned that you may be developing neuropathic pain after the nerves were cut with your orchiectomy. Based on your clinical exam and looking at the CT scan that was done on November 25, I am not concerned with recurrent cancer, infection, kidney stones, diverticulitis or other reasons that would require further imaging today or hospitalization. I did discuss your case with Dr. Tejeda today so he is aware of concerns. Please continue with your meloxicam 15 mg daily, Tylenol as needed during the day, I have given you a prescription for gabapentin 300 mg twice a day to help with neuropathic pain. If you find that you are too sleepy taking it twice a day, take it at night for a couple of days to acclimate to the medication. I have also given you a small prescription for oxycodone, narcotic for severe acute pain. This can cause constipation make sure that you take it with a stool softener. There is a potential for addiction with any narcotic. Please follow up with Dr. Tejeda as scheduled He [facility] Prescriptions: New gabapentin 300 mg capsule 300 mg PO BID Qty: 60 0RF oxycodone 5 mg tablet 5 mg PO Q6H PRN (Reason: pain) Qty: 20 0RF No Action metoprolol tartrate 25 mg tablet 25 mg PO BID Qty: 60 0RF meloxicam 15 mg tablet 15 mg PO DAILY duloxetine 20 mg capsule,delayed release(DR/EC) 20 mg PO BID cholecalciferol (vitamin D3) 50 mcg (2,000 unit) capsule 50 mcg PO DAILY penicillin V potassium 250 mg tablet 250 mg PO BID Referrals: Anjel Orellana, [Primary Care Provider] - Stand Alone Forms: Patient Portal/API/Survey, Work Release Note
[2024-12-09] MEDS: GABAPENTIN 300 MG CAPSULE PO (13:53)
[2024-12-09] MEDS: KETOROLAC 30 MG/ML VIAL 15 MG IV (13:53)
[2024-12-09 13:55] VITALS: PULSE 80; O2SAT 97
[2024-12-09 14:00] VITALS: BP 145/78; PULSE 75; RESP 16; O2SAT 97
== END 2024-12-09 14:23 | disposition home or self-care (01) ==
PROVIDERS: Emergency Provider Emergency Medicine; PCP Family Medicine
DX: R10.32 Left lower quadrant pain (principal); M79.2 Neuralgia and neuritis, unspecified; Z85.47 Personal history of malignant neoplasm of testis
CPT/HCPCS: 36415; 80053; 81003; 83690; 85025; 93005; 96374; 99284; J1885

== ENCOUNTER → 2025-02-15 13:02 | Outpatient (CLI) | payer OTHER, SELFPAY ==
--- NOTE | 2025-02-15 13:06 | DI.RAD.S_ITS ---
PROCEDURE: XR CHEST 2V INDICATIONS: 44 y/o M w/ left testicular cancer TECHNIQUE: 2 views of the chest were acquired. COMPARISON: [facility], CR, XR CHEST 2V, 11/25/2024, 7:41. FINDINGS: Cardiopericardial silhouette and pulmonary vasculature within normal limits. No pneumothorax, no pleural effusion, no focal consolidation. No radiographic evidence of pulmonary nodule. IMPRESSION: Negative. If symptoms persist or worsen, or there is high clinical suspicion of thoracic abnormality, CT chest could be performed. Dictated by: Jose Alberto Esteves M.D. on 02/15/2025 at 15:08 Approved by: Jose Alberto Esteves M.D. on 02/15/2025 at 15:10
--- NOTE | 2025-02-15 13:06 | DI.CT.S_ITS ---
PROCEDURE: CT ABDOMEN PELVIS W CON INDICATIONS: 44 y/o M w/ left testicular cancer TECHNIQUE: After the administration of intravenous contrast, axial sections acquired from the lung bases to the pubic symphysis. Coronal and sagittal reformats were performed. For radiation dose reduction, the following was used: automated exposure control, adjustment of mA and/or kV according to patient size. COMPARISON: [facility], CT, CT ABDOMEN PELVIS W CON, 10/11/2024, 8:06. [facility], CT, CT ABDOMEN PELVIS W CON, 11/25/2024, 7:44. FINDINGS: Image quality: Diagnostic. Lower Chest: No significant findings. ABDOMEN: Liver: No solid mass. Moderate hepatic steatosis is seen. Gallbladder: No radiopaque gallstones or wall thickening. Biliary ducts: No biliary dilation. Pancreas: No ductal dilation. Spleen: Size is within normal limits. Adrenal Glands: No adrenal nodules. Kidneys and Ureters: No hydronephrosis. No solid mass. No complex renal cystic lesion which requires follow up. Stomach and Bowel: There is no bowel obstruction. No gastric or small bowel wall thickening. Questionable diffuse colonic wall thickening. No significant pericolonic fat stranding. Appendix is visualized and is within normal limits. No abscess collection. Peritoneum: No abnormal intraperitoneal fluid. No free air. Ventral Wall: No significant ventral hernia. Abdominal Nodes: No retroperitoneal or mesenteric adenopathy by size criteria. Vessels: Aorta and inferior vena cava are normal in size. PELVIS: Pelvic Organs: Unremarkable. Bladder: No bladder wall thickening, accounting for underdistention. Pelvic Nodes: No enlarged lymph nodes. Miscellaneous: No inguinal hernias are seen. Prior left orchectomy. Small right hydrocele is seen. Bones: Previously described sclerotic areas scattered in multiple lumbar spine vertebral bodies, left acetabulum, right iliac bone, right femoral head and neck are all unchanged and are suggestive of benign process such as bone island. IMPRESSION: 1. Prior left orchectomy. No abdominal or pelvic lymphadenopathy. 2. Stable benign-appearing sclerotic foci scattered in visualized osseous structures as above. No gross aggressive appearing bony lesion is seen. 3. Questionable diffuse colonic wall thickening concerning for low-grade colitis versus under distension. No free fluid or free air. Dictated by: Won Diaz M.D. on 02/15/2025 at 16:29 Approved by: Won Diaz M.D. on 02/15/2025 at 16:40
[2025-02-15 13:30] LABS: Estimated Glomerular Filt Rate > 60 mL/min (>60)
[2025-02-15 14:35] LABS: Lactate Dehydrogenase 190 U/L (120-246)
[2025-02-15 14:49] LABS: HCG Quantitative /Beta subunit < 2.39 mIU/mL (<2.40)
[2025-02-16 06:38] LABS: Alpha Fetoprotein 5.2 ng/mL (0.0-6.9)
== END ==
PROVIDERS: PCP Family Medicine; Referring Provider Family Medicine; Visit Provider Urology
DX: C62.90 Malignant neoplasm of unspecified testis, unspecified whether descended or undescended (principal); K76.0 Fatty (change of) liver, not elsewhere classified; N43.3 Hydrocele, unspecified; Z90.79 Acquired absence of other genital organ(s)
CPT/HCPCS: 36415; 71046; 74177; 82105; 82565; 83615; 84702; Q9967

== ENCOUNTER 2025-04-14 21:49 | Emergency (ER) | payer OTHER, SELFPAY ==
[2025-04-14 22:12] VITALS: BP 153/86; PULSE 83; RESP 16; TEMP 36.6; O2SAT 97; BMI 30.3
--- NOTE | 2025-04-14 22:31 | DI.CT.S_ITS ---
PROCEDURE: CT ABDOMEN PELVIS WO CON INDICATIONS: Left flank pain, nausea TECHNIQUE: Axial sections were acquired from the lung bases to the pubic symphysis. Coronal and sagittal reformats were performed. For radiation dose reduction, the following was used: automated exposure control, adjustment of mA and/or kV according to patient size. COMPARISON: [facility], CT, CT ABDOMEN PELVIS W CON, 02/15/2025, 13:51. FINDINGS: Image quality: Diagnostic. Lower Chest: No significant findings. URINARY: Right Kidney: Minimal hydronephrosis. Right Ureter: Minimal prominence of the ureter within portions proximally. There is a punctate calcification within the mid ureter on series 2, image 122. Left Kidney: No stones or hydronephrosis. Incidental note of retroaortic left renal vein. Left Ureter: No hydroureter. No stone. Bladder: Normal wall thickness. No stones. ABDOMEN: Liver: No contour-deforming solid mass. Steatosis. Gallbladder: No radiopaque gallstones or wall thickening. Biliary ducts: No biliary dilation. Pancreas: No ductal dilation. Spleen: Size is within normal limits. Adrenal Glands: No adrenal nodules. Stomach and Bowel: Normal colonic caliber, without significant wall thickening. Mild hiatal hernia. Appendix is normal. Peritoneum: No abnormal intraperitoneal fluid. No free air. Ventral Wall: No hernia. Abdominal Nodes: No enlarged retroperitoneal or mesenteric lymph nodes. Vessels: Aorta and inferior vena cava are normal in size. PELVIS: Pelvic Organs: Prior left orchiectomy. Pelvic Nodes: Unremarkable. Miscellaneous: No inguinal hernias are seen. Bones: Previous areas of scattered foci within the osseous structures are unchanged. There overall nonspecific. IMPRESSION: Minimal right hydronephrosis and hydroureter secondary to punctate calcification in the mid ureter. Left orchiectomy. No adenopathy. Dictated by: Melissa Liu M.D. on 04/14/2025 at 23:07 Approved by: Melissa Liu M.D. on 04/14/2025 at 23:11
[2025-04-14 22:37] LABS: Add Manual Diff / Slide Review NO; Hematocrit 43.5 % (41-53); Hemoglobin 15.0 g/dL (13.5-17.5); Lymphocytes Absolute Auto 3400 /uL (1100-4500); Mean Corpuscular HGB Conc 34.6 % (30-36); Mean Corpuscular Hemoglobin 29.7 PG (26-34); Mean Corpuscular Volume 86.0 fL (80-100); Platelet Count 286 X10^3/uL (150-400)
[2025-04-14] MEDS: TAMSULOSIN 0.4 MG CAPSULE PO (22:41)
[2025-04-14] MEDS: KETOROLAC 30 MG/ML VIAL IV (22:41)
[2025-04-14] MEDS: ONDANSETRON 4 MG/2 ML INJ IV (22:45)
[2025-04-14 23:05] LABS: Alanine Aminotransferase 56 IU/L (<50); Albumin 4.8 g/dL (3.5-5.0); Albumin Globulin Ratio 1.5 (1.0-2.8); Alkaline Phosphatase 75 U/L (38-126); Blood Urea Nitrogen 23 mg/dL (9-20); Calcium 9.6 mg/dL (8.4-10.2); Carbon Dioxide 25 mmol/L (22-32); Chloride 107 mmol/L (98-107); Estimated Glomerular Filt Rate > 60 mL/min (>60); Globulin 3.1 g/dL (1.7-4.1); Glucose 124 mg/dL (70-99); HEMOLYSIS < 15 (0-50); Potassium 3.9 mmol/L (3.4-5.1); Sodium 140 mmol/L (137-145); Total Protein 7.9 g/dL (6.3-8.2)
[2025-04-15 00:32] LABS: Appearance Urine UA CLOUDY; Bilirubin Urine UA 1+ (NEGATIVE); Color Urine UA YELLOW; Glucose Urine UA TRACE g/dL (Negative); Ketones Urine UA TRACE (NEGATIVE); Leukocyte Esterase Urine UA NEGATIVE (NEGATIVE); Nitrite Urine UA NEGATIVE (Negative); Occult Blood Urine UA 3+ (Negative); Protein Urine UA 2+ (Negative); Specific Gravity Urine UA 1.025 (1.000-1.035); Urobilinogen Urine UA 0.2 E.U./dL (0.2); pH Urine UA 6.0 (4.5-8.0)
[2025-04-15 00:40] LABS: Culture Indicated Urine Cult Not Indicated; Ictotest Urine Negative (Negative)
[2025-04-15 00:57] VITALS: PULSE 69; O2SAT 94
[2025-04-15 01:00] VITALS: PULSE 72; O2SAT 95
[2025-04-15 01:30] VITALS: PULSE 69; O2SAT 96
--- NOTE | 2025-04-15 01:31 | ED.BACK ---
HPI - Back Pain/Injury General Chief Complaint: Back Pain/Injury Stated Complaint: pain in right side/back Time Seen by Provider: 04/14/25 22:31 Source: patient History of Present Illness HPI Narrative: Pleasant 44-year-old man comes to the ER because of acute onset right flank pain. He also reports irritative voiding symptoms of incomplete emptying, frequency, urgency. He denies dysuria and gross hematuria. He denies fevers, chills but admits to some nausea and denies vomiting. He denies any diarrhea or blood in his stool. He has no other concerns or complaints at this time. Related Data Home Medications ?Medication ?Instructions ?Recorded ?Confirmed meloxicam 15 mg tablet 15 mg PO DAILY 12/20/22 02/26/25 cholecalciferol (vitamin D3) 50 50 mcg PO DAILY 07/23/24 02/26/25 mcg (2,000 unit) capsule duloxetine 20 mg capsule,delayed 20 mg PO BID 07/23/24 02/26/25 release penicillin V potassium 250 mg 250 mg PO BID 11/27/24 02/26/25 tablet Previous Rx's ?Medication ?Instructions ?Recorded metoprolol tartrate 25 mg tablet 25 mg PO BID #60 tabs 09/15/24 gabapentin 300 mg capsule 300 mg PO BID #60 caps 12/09/24 oxycodone 5 mg tablet 5 mg PO Q6H PRN pain #20 tabs 12/09/24 hydrocodone 5 mg-acetaminophen 325 1 tab PO Q4H PRN pain #18 tabs 04/15/25 mg tablet ondansetron 4 mg disintegrating 4 mg PO Q8H PRN nausea and 04/15/25 tablet vomiting #14 tabs tamsulosin 0.4 mg capsule (Flomax) 0.8 mg (2 x 0.4 mg) PO DAILY #20 04/15/25 caps Allergies Allergy/AdvReac Type Severity Reaction Status Date / Time tramadol (TRAMADOL) AdvReac Unknown Night Verified 04/14/25 22:12 Terrors Review of Systems Constitutional Constitutional: Denies chills and Denies fever(s) ENT Ears, Nose, Mouth, and Throat: Denies odynophagia Cardiovascular Cardiovascular: Denies chest pain, Denies syncope, Denies leg edema, Denies lightheadedness and Denies dyspnea Respiratory Respiratory: Denies dyspnea Gastrointestinal Gastrointestinal: Denies abdominal pain, Denies hematochezia, Denies change in bowel habits, Denies coffee ground emesis, Denies constipation, Denies cramping, Denies diarrhea, Reports nausea, Denies odynophagia, Denies vomiting and Denies hematemesis Genitourinary Genitourinary: Denies hematuria, Denies oliguria, Denies difficulty urinating, Denies dysuria, Denies genital lesions, Denies genital pain, Denies dysuria, Reports flank pain, Denies nocturia, Denies penile discharge, Denies scrotal swelling, Denies testicular pain, Reports urinary frequency, Reports urinary hesitancy, Denies urinary incontinence and Reports urinary urgency Neurologic Neurologic: Denies syncope Patient History Medical History Obstructive sleep apnea Arthritis Hx of tuberculosis Left inguinal hernia Low testosterone in male Prediabetes Hyperlipidemia Hand tendinitis Hearing loss Sleep apnea Change in facial mole PTSD (post-traumatic stress disorder) Depression Anxiety Generalized anxiety disorder Strain of tendon of left rotator cuff Lower back pain RLQ abdominal pain Right epididymitis Prostatitis Cervical strain, acute Hydrocele Inguinal hernia recurrent unilateral Testicular pain, right Back pain Neck pain, musculoskeletal Rupture of left tympanic membrane Surgical History History of left inguinal hernia repair H/O vasectomy [place] teeth removed Hx of right inguinal hernia repair (02/21/21) Family History Mother Diabetes mellitus Heart disease Father Diabetes mellitus Heart disease Social History marital status: number of children: 2 household members: spouse and children occupational status: employed and previously employed Previous occupational history: [employer] AND [employer] leisure activities: exercise Smoking Status: Former smoker Tobacco: How many years used: 19 quit status: quit date established alcohol intake: former substance use type: does not use and marijuana caffeine: Yes Smoking Status: Former smoker tobacco type: cigarettes and vaping alcohol intake frequency: 0-2 drinks per day Exam Initial Vital Signs Initial Vital Signs: Vital Signs Temperature 97.8 F 04/14/25 22:12 Pulse Rate 83 04/14/25 22:12 Respiratory Rate 16 04/14/25 22:12 Blood Pressure 153/86 H 04/14/25 22:12 Pulse Oximetry 97 04/14/25 22:12 Oxygen Delivery Method Room Air 04/14/25 22:12 Const General: No acute distress and No ill appearing HENOH Head: normocephalic and atraumatic Resp Effort & Inspection: normal respiratory effort Auscultation: clear to auscultation bilaterally Cardio Rate: regular rate Rhythm: regular rhythm Heart Sounds: S1 normal and S2 normal GI Palpation: soft and No tender Auscultation: normal bowel sounds General: CVA tenderness Course Course Course Narrative: Patient seen and examined by myself once he was roomed in the ER. By this point he had already had CT of his abdomen which was positive for the obstructing stone. There was no evidence of superimposed UTI. His symptoms are well controlled with Zofran, Flomax, and Toradol. He was given take-home packs for hydrocodone and Zofran. He was also prescribed prescribed hydrocodone, Zofran, and Flomax. I advised him to return to the ER for any change or worsening in his condition especially fever, chills, sweats, nausea, vomiting, burning when he pees or any other further concerns or complaints. Otherwise, I advised him to follow up with his PCP as soon as possible for re-evaluation and to strain his urine in the main meantime for stone analysis in the future. Patient was in agreement with this plan. Orders Ordered: ED Orders 04/14/25 22:22 Ictotest Urine Stat Urinalysis and Microscopic Stat 04/14/25 22:25 CBC Auto Diff [Complete Blood Count AUTO DIFF] Stat CMP [Comprehensive Metabolic Panel] Stat 04/14/25 22:31 CT abdomen pelvis wo con Stat Discontinued Medications Hydrocodone Bitart/Acetaminophen (Hydrocodone/Acet 5/325 Prepack) 1 bottle MISC DIRECTED ONE Stop: 04/15/25 01:26 Sodium Chloride (Normal Saline 0.9%) 1,000 mls @ 1,000 mls/hr IV BOLUS ONE Stop: 04/14/25 23:30 Ketorolac Tromethamine (Ketorolac 30 Mg/Ml Vial) 30 mg IV NOW ONE Stop: 04/14/25 22:32 Last Admin: 04/14/25 22:41 Dose: 30 mg Documented By: KARLEE Ondansetron HCl (Ondansetron 4 Mg/2 Ml Inj) 4 mg IV NOW ONE Stop: 04/14/25 22:17 Last Admin: 04/14/25 22:45 Dose: 4 mg Documented By: CS Ondansetron HCl (Ondansetron 4 Mg Odt Prepack) 1 bottle MISC DIRECTED ONE Stop: 04/15/25 01:26 Tamsulosin HCl (Tamsulosin 0.4 Mg Capsule) 0.4 mg PO NOW ONE Stop: 04/14/25 22:32 Last Admin: 04/14/25 22:41 Dose: 0.4 mg Documented By: KARLEE Vital Signs Vital signs: Vital Signs - 8 hr 04/14/25 22:12 Temperature 97.8 F Pulse Rate 83 Respiratory Rate 16 Blood Pressure 153/86 H Pulse Oximetry 97 Oxygen Delivery Method Room Air MDM - Back Pain/Injury Differential Diagnosis Differential diagnosis: Likely lumbar radiculopathy, sciatica, renal colic, pyelonephritis and thoracic back pain Lab Data 04/14/25 22:25 04/14/25 22:25 Labs: Lab Results 04/14/25 04/14/25 Range/Units 22:22 22:25 WBC 9.3 (4.5-11.0) X10^3/uL RBC 5.06 (4.5-5.9) X10^6/uL Hgb 15.0 (13.5-17.5) g/dL Hct 43.5 (41-53) % MCV 86.0 (80-100) fL MCH 29.7 (26-34) PG MCHC 34.6 (30-36) % RDW 12.6 (11.6-14.8) % Plt Count 286 (150-400) X10^3/uL Neut % (Auto) 50.7 (50-75) % Lymph % (Auto) 36.4 (25-40) % [place] % (Auto) 8.4 (3-14) % Eos % (Auto) 3.1 (2-4) % Baso % (Auto) 1.4 (0-2) % Neut # (Auto) 4700 (9065-5005) /uL Lymph # (Auto) 3400 (8479-0591) /uL [place] # (Auto) 800 (0-900) /uL Eos # (Auto) 300 (0-450) /uL Baso # (Auto) 100 (0-100) /uL Sodium 140 (137-145) mmol/L Potassium 3.9 (3.4-5.1) mmol/L Chloride 107 (98-107) mmol/L Carbon Dioxide 25 (22-32) mmol/L BUN 23 H (9-20) mg/dL Creatinine 1.04 (0.66-1.25) mg/dL Estimated GFR > 60 (>60) mL/min BUN/Creatinine Ratio 22.1 H (6-22) Glucose 124 H (70-99) mg/dL Calcium 9.6 (8.4-10.2) mg/dL Total Bilirubin 0.5 (0.2-1.3) mg/dL AST 38 (17-59) IU/L ALT 56 H (<50) IU/L Alkaline Phosphatase 75 (38-126) U/L Total Protein 7.9 (6.3-8.2) g/dL Albumin 4.8 (3.5-5.0) g/dL Globulin 3.1 (1.7-4.1) g/dL Albumin/Globulin Ratio 1.5 (1.0-2.8) Urine Color Yellow Urine Appearance Cloudy Urine pH 6.0 (4.5-8.0) Ur Specific [place] 1.025 (1.000-1.035) Urine Protein 2+ H (Negative) Urine Glucose (UA) Trace H (Negative) g/dL Urine Ketones Trace H (NEGATIVE) Urine Occult Blood 3+ H (Negative) Urine Nitrate Negative (Negative) Urine Bilirubin 1+ H (NEGATIVE) Ur Bilirubin Confirm Negative (Negative) Urine Urobilinogen 0.2 (0.2) E.U./dL Ur Leukocyte Esterase Negative (NEGATIVE) Urine RBC >100/hpf H (0-5/HPF) Urine WBC None seen (0-5/HPF) Ur Squamous Epith Cells 0-1 /hpf (0-5/HPF) Urine Bacteria None seen (None) Ur Culture Indicated? Cult not indicated Vol Urine Centrifuged 10ml (spun) Urine Dip Bedside Urine Glucose 100 mg/dl Bedside Urine Bilirubin - Negative Bedside Urine Ketone - Negative Urine Specific [place] 1.025 Bedside Urine Occult Blood +++ Bedside Urine pH 6.0 Bedside Urine Protein +/- 15 Bedside Urine Urobilinogen - Negative Bedside Urine Nitrite - Negative Bedside Urine Leukocytes - Negative Esterase Discharge Plan Departure Patient Disposition: Home Clinical Impression: Ureterolithiasis Instructions: Kidney Stones -- Adult Activity Restrictions/Additional Instructions: If there is any change or worsening in your condition, that is vomiting, burning when you pee, out of control or worsening pain or any other concerns then please return to the ER right away for further evaluation. Otherwise, please follow up with your PCP as soon as possible. Be sure to strain your urine every time you pee until you pass the stone so that it can be given to your primary care doctor to be sent for analysis. Make sure you drink plenty of fluids as you are passing the stone this will help. Prescriptions: New tamsulosin [Flomax] 0.4 mg capsule 0.8 mg PO DAILY Qty: 20 0RF hydrocodone-acetaminophen 5-325 mg tablet 1 tab PO Q4H PRN (Reason: pain) Qty: 18 0RF ondansetron 4 mg tablet,disintegrating 4 mg PO Q8H PRN (Reason: nausea and vomiting) Qty: 14 0RF No Action metoprolol tartrate 25 mg tablet 25 mg PO BID Qty: 60 0RF meloxicam 15 mg tablet 15 mg PO DAILY gabapentin 300 mg capsule 300 mg PO BID Qty: 60 0RF oxycodone 5 mg tablet 5 mg PO Q6H PRN (Reason: pain) Qty: 20 0RF duloxetine 20 mg capsule,delayed release(DR/EC) 20 mg PO BID cholecalciferol (vitamin D3) 50 mcg (2,000 unit) capsule 50 mcg PO DAILY penicillin V potassium 250 mg tablet 250 mg PO BID Referrals: Mariana Doe ARNP [Primary Care Provider, Nursing] - As soon as possible Stand Alone Forms: Patient Portal/API
[2025-04-15] MEDS: ONDANSETRON 4 MG ODT PREPACK 1 BOTTLE MISC (01:39)
[2025-04-15] MEDS: HYDROCODONE/ACET 5/325 PREPACK 1 BOTTLE MISC (01:40)
== END 2025-04-15 02:00 | disposition home or self-care (01) ==
PROVIDERS: Emergency Provider Emergency Medicine; PCP Nurse Practitioner Primary Care
DX: N20.1 Calculus of ureter (principal)
CPT/HCPCS: 74176; 80053; 81001; 81003; 85025; 96374; 96375; 99284; J1885; J2405

== ENCOUNTER → 2025-05-01 08:19 | Outpatient (CLI) | payer OTHER, SELFPAY ==
--- NOTE | 2025-05-01 08:25 | DI.CT.S_ITS ---
PROCEDURE: CT ABDOMEN PELVIS W CON INDICATIONS: 44 y/o M w/ h/o left testicular cancer, please eval TECHNIQUE: After the administration of intravenous contrast, axial sections acquired from the lung bases to the pubic symphysis. Coronal and sagittal reformats were performed. For radiation dose reduction, the following was used: automated exposure control, adjustment of mA and/or kV according to patient size. COMPARISON: [facility], CT, CT ABDOMEN PELVIS WO CON, 04/14/2025, 22:35. [facility], CT, CT ABDOMEN PELVIS W CON, 02/15/2025, 13:51. FINDINGS: Image quality: Diagnostic. Lower Chest: No significant findings. ABDOMEN: Liver: No solid mass. Moderate hepatic steatosis is seen. Gallbladder: No radiopaque gallstones or wall thickening. Biliary ducts: No biliary dilation. Pancreas: No ductal dilation. Spleen: Size is within normal limits. Adrenal Glands: No adrenal nodules. Kidneys and Ureters: Mild right-sided hydronephrosis and hydroureter is seen. There is a 4 mm stone seen in distal right ureter series 2, image 114. No left-sided hydronephrosis or hydroureter is seen.. No solid mass. No complex renal cystic lesion which requires follow up. Stomach and Bowel: Normal colonic caliber, without significant wall thickening. Appendix is visualized and is within normal limits. Mild colonic diverticulosis without CT evidence of acute diverticulitis. Peritoneum: No abnormal intraperitoneal fluid. No free air. Ventral Wall: No significant ventral hernia. Abdominal Nodes: No retroperitoneal or mesenteric adenopathy by size criteria. 6 mm left retroperitoneal lymph node is seen series 2, image 55. 6-7 mm aortocaval node is also seen series 2, image 55. Vessels: Aorta and inferior vena cava are normal in size. PELVIS: Pelvic Organs: Unremarkable. Bladder: No bladder wall thickening, accounting for underdistention. Pelvic Nodes: No enlarged lymph nodes. Small bilateral inguinal lymph nodes are seen measures up to 6 mm in size. Miscellaneous: No inguinal hernias are seen. Bones: No aggressive osseous abnormality. Previously described scattered sclerotic foci in included osseous structures are all unchanged. IMPRESSION: 1. 4 mm right distal ureteral stone with [id number] hydronephrosis and proximal to mid hydroureter. No left-sided hydronephrosis or hydroureter. 2. No abdominal or pelvic lymphadenopathy. Small lymph nodes are seen in retroperitoneal space and bilateral inguinal region measures up to 6 mm in size. 3. Stable sclerotic foci scattered in bony pelvis and included portion of the spine not significantly changed from prior study and likely represent benign process. Dictated by: Won Diaz M.D. on 05/02/2025 at 23:05 Approved by: Won Diaz M.D. on 05/02/2025 at 23:16
--- NOTE | 2025-05-01 08:25 | DI.RAD.S_ITS ---
PROCEDURE: XR CHEST 2V INDICATIONS: 44 y/o M w/ h/o left testicular cancer, please eval TECHNIQUE: 2 views of the chest were acquired. COMPARISON: [facility], CR, XR CHEST 2V, 02/15/2025, 13:01. FINDINGS: Surgical changes and devices: None. Lungs and pleura: Lungs are clear. No pleural effusions or pneumothorax. Mediastinum: Mediastinal contours are normal. Heart size is normal. Bones and chest wall: No suspicious bony abnormalities. Soft tissues appear unremarkable. IMPRESSION: No acute cardiopulmonary pathology. Dictated by: Won Diaz M.D. on 05/01/2025 at 11:43 Approved by: Won Diaz M.D. on 05/01/2025 at 11:43
[2025-05-01 12:11] LABS: HCG Quantitative /Beta subunit < 2.39 mIU/mL (<2.40)
== END ==
PROVIDERS: PCP Nurse Practitioner Primary Care; Referring Provider Urology; Visit Provider Urology
DX: C62.90 Malignant neoplasm of unspecified testis, unspecified whether descended or undescended (principal); N13.2 Hydronephrosis with renal and ureteral calculous obstruction; K76.0 Fatty (change of) liver, not elsewhere classified; K57.30 Diverticulosis of large intestine without perforation or abscess without bleeding
CPT/HCPCS: 36415; 71046; 74177; 82105; 83615; 84702; Q9967

== ENCOUNTER 2025-06-09 18:04 | Emergency (ER) | payer OTHER, SELFPAY ==
[2025-06-09 18:08] VITALS: BP 163/87; PULSE 100; RESP 17; TEMP 37.1; O2SAT 96; BMI 30.3
[2025-06-09 18:43] LABS: Add Manual Diff / Slide Review NO; Hematocrit 43.3 % (41-53); Hemoglobin 14.7 g/dL (13.5-17.5); Lymphocytes Absolute Auto 2000 /uL (1100-4500); Mean Corpuscular HGB Conc 34.0 % (30-36); Mean Corpuscular Hemoglobin 29.5 PG (26-34); Mean Corpuscular Volume 86.8 fL (80-100); Platelet Count 269 X10^3/uL (150-400)
[2025-06-09 18:45] LABS: Alanine Aminotransferase 61 IU/L (<50); Albumin 4.7 g/dL (3.5-5.0); Albumin Globulin Ratio 1.4 (1.0-2.8); Alkaline Phosphatase 78 U/L (38-126); Blood Urea Nitrogen 17 mg/dL (9-20); Calcium 9.7 mg/dL (8.4-10.2); Carbon Dioxide 25 mmol/L (22-32); Chloride 103 mmol/L (98-107); Estimated Glomerular Filt Rate > 60 mL/min (>60); Globulin 3.4 g/dL (1.7-4.1); Glucose 182 mg/dL (70-99); HEMOLYSIS < 15 (0-50); Lipase 65 U/L (23-300); Potassium 3.5 mmol/L (3.4-5.1); Sodium 138 mmol/L (137-145); Total Protein 8.1 g/dL (6.3-8.2)
[2025-06-09] MEDS: ONDANSETRON 4 MG/2 ML INJ IV (20:46)
[2025-06-09] MEDS: KETOROLAC 30 MG/ML VIAL 15 MG IV (20:46)
--- NOTE | 2025-06-09 20:48 | PC.NURSE ---
Pt in obvious pain distress. Verbal order received from Dr Salas for IV Kerotlac 15 mg
--- NOTE | 2025-06-10 00:44 | PC.NURSE ---
IV started at triage was removed when pt signed the C paperwork prior to leaving
== END 2025-06-10 00:45 | disposition left against medical advice (07) ==
PROVIDERS: Emergency Provider Emergency Medicine; PCP Nurse Practitioner Primary Care
DX: N20.0 Calculus of kidney (principal); R11.0 Nausea; Z87.442 Personal history of urinary calculi
CPT/HCPCS: 80053; 83690; 85025; 96374; 96375; 99283; 99284; J1885; J2405

== ENCOUNTER 2025-06-10 12:55 | Emergency (ER) | payer OTHER, SELFPAY ==
[2025-06-10 13:06] VITALS: BP 143/95; PULSE 80; RESP 18; TEMP 36.4; O2SAT 97; BMI 30.3
--- NOTE | 2025-06-10 13:06 | ED_ITS ---
HPI - Abdominal Pain <Rigoberto Abel PA-C - Last Filed: 06/10/25 15:31> General Chief Complaint: Urogenital-Male Stated Complaint: Kidney stone pain/Surgery site pain Time Seen by Provider: 06/10/25 13:02 History of Present Illness HPI narrative: This is a 44-year-old male presents emergency department due to acute onset right lower quadrant pain onset last night. He states the pain came in his severe wave. It has been somewhat controlled with p.o. Tylenol that he was taken. He was reports some mild nausea. Patient reports being diagnosed with a kidney stone 2 months ago and having a repeat CT scan a month ago via his urologist who manages his testicular cancer which showed progression of the stone into the ureter. States he is still able to urinate. Denies any blood in the urine, dysuria, or any other concerning signs or symptoms. Related Data Home Medications ?Medication ?Instructions ?Recorded ?Confirmed meloxicam 15 mg tablet 15 mg PO DAILY 12/20/2204/30 cholecalciferol (vitamin D3) 50 50 mcg PO DAILY 05/13/25 mcg (2,000 unit) capsule amlodipine 10 mg tablet 10 mg PO DAILY 05/13/2504/30 docusate sodium 100 mg capsule 100 mg PO DAILY 5 05/13/25 (Colace) duloxetine 60 mg capsule,delayed 60 mg PO DAILY 05/13/25 release gabapentin 300 mg capsule 300 mg PO BID PRN 05/13/25 0 05/13/25 Previous Rx's ?Medication ?Instructions ?Recorded metoprolol tartrate 25 mg tablet 25 mg PO BID #60 tabs 09/15/24 hydrocodone 5 mg-acetaminophen 325 1 tab PO Q4H PRN pa in #18 tabs 04/15/25 mg tablet tamsulosin 0.4 mg capsule (Flomax) 0.8 mg (2 x 0.4 mg) PO DAILY #20 04/15/25 caps ondansetron 4 mg disintegrating 4 mg PO Q8H PRN nausea and 06/10/25 tablet vomiting #20 tabs oxycodone 5 mg capsule 5 mg PO Q8H PRN pain #20 cap s 06/10/25 tamsulosin 0.4 mg capsule (Flomax) 0.4 mg PO BEDTIME # 14 caps 06/10/25 Allergies Allergy/AdvReac Type Severity Reaction Status Date / Time tramadol (TRAMADOL) AdvReac Unknown Night Verified 06/10/25 13:06 Terrors Review of Systems <Rigoberto Abel PA-C - Last Filed: 06/10/25 15:31> Review of Systems Narrative: GENERAL: Denies chills, fatigue, malaise, fever, sweats. HEENT: Denies sinus pain, ear pain, sore throat, difficulty swallowing, dizziness. RESPIRATORY: Denies dyspnea, cough, wheezing, hemoptysis, sputum. CARDIOVASCULAR: Denies chest pain, palpitations, orthopnea, edema, GASTROINTESTINAL: Reports right-sided abdominal pain : Denies dysuria, frequency, incontinence, hematuria, urinary retention. MUSCULOSKELETAL: denies weakness, joint pain, or bony pain SKIN: Denies rash, skin lesions, or other NEUROLOGIC: Denies weakness, headache, numbness, change in speech, confusion, seizures, incoordination. PSYCHIATRIC: No concerning psychosocial issues. 12 point review of systems is negative except for those stated above Patient History <Rigoberto Abel PA-C - Last Filed: 06/10/25 15:31> Medical History Obstructive sleep apnea Arthritis Hx of tuberculosis Left inguinal hernia Low testosterone in male Prediabetes Hyperlipidemia Hand tendinitis Hearing loss Sleep apnea Change in facial mole PTSD (post-traumatic stress disorder) Depression Anxiety Generalized anxiety disorder Strain of tendon of left rotator cuff Lower back pain RLQ abdominal pain Right epididymitis Prostatitis Cervical strain, acute Hydrocele Inguinal hernia recurrent unilateral Testicular pain, right Back pain Neck pain, musculoskeletal Rupture of left tympanic membrane Surgical History History of left inguinal hernia repair H/O vasectomy [place] teeth removed Hx of right inguinal hernia repair (02/21/21) Family History Mother Diabetes mellitus Heart disease Father Diabetes mellitus Heart disease Social History marital status: number of children: 2 household members: spouse and children occupational status: employed and previously employed Previous occupational history: [employer] leisure activities: exercise Smoking Status: Former smoker Tobacco: How many years used: 19 quit status: quit date established alcohol intake: former substance use type: does not use and marijuana caffeine: Yes tobacco type: cigarettes and vaping alcohol intake frequency: 0-2 drinks per day Exam <Rigoberto Abel PA-C - Last Filed: 06/10/25 15:31> Narrative Exam Narrative: GENERAL: Well-developed patient, in mild distress. HEAD: Atraumatic. Normocephalic. EYES: Pupils equal round and reactive. Extraocular motions intact. No scleral icterus. No injection or drainage. ENT: Nose without bleeding, purulent drainage. Throat without erythema, tonsillar hypertrophy or exudate. Airway patent. NECK: Trachea midline. Non tender EXTREMITIES: No edema or joint tenderness. NEURO: AOx3. SKIN: No rash or erythema of visible areas Abdomen: No significant right lower quadrant tenderness to palpation but does have some right-sided tenderness to palpation. Nondistended. Initial Vital Signs Initial Vital Signs: Vital Signs Temperature 97.5 F L 06/10/25 13:06 Pulse Rate 80 06/10/25 13:06 Respiratory Rate 18 06/10/25 13:06 Blood Pressure 143/95 H 06/10/25 13:06 Pulse Oximetry 97 06/10/25 13:06 Oxygen Delivery Method Room Air 06/10/25 13:06 <Anyi Stephenson DO - Last Filed: 06/10/25 18:30> Initial Vital Signs Initial Vital Signs: Vital Signs Temperature 97.5 F L 06/10/25 13:06 Pulse Rate 80 06/10/25 13:06 Respiratory Rate 18 06/10/25 13:06 Blood Pressure 143/95 H 06/10/25 13:06 Pulse Oximetry 97 06/10/25 13:06 Oxygen Delivery Method Room Air 06/10/25 13:06 Course <Rigoberto Abel PA-C - Last Filed: 06/10/25 15:31> Orders Ordered: ED Orders 06/10/25 13:05 Urine Microscopic Stat 06/10/25 13:12 CT abdomen pelvis wo con Stat Discontinued Medications Ketorolac Tromethamine (Ketorolac 30 Mg/Ml Vial) 15 mg IM NOW ONE Stop: 06/10/25 15:24 Last Admin: 06/10/25 15:31 Dose: 15 mg Documented By: NICOLAS Ondansetron HCl (Ondansetron 4 Mg/2 Ml Inj) 4 mg IV NOW PRN PRN Reason: Nausea And Vomiting Ondansetron HCl (Ondansetron 4 Mg Odt) 4 mg PO NOW PRN PRN Reason: Nausea And Vomiting Vital Signs Vital signs: Vital Signs - 8 hr 06/10/25 13:06 06/10/25 15:37 Temperature 97.5 F L Pulse Rate 80 78 Respiratory Rate 18 18 Blood Pressure 143/95 H 141/91 H Pulse Oximetry 97 99 Oxygen Delivery Method Room Air Room Air <Anyi Stephenson DO - Last Filed: 06/10/25 18:30> Orders Ordered: ED Orders 06/10/25 13:05 Urine Microscopic Stat 06/10/25 13:12 CT abdomen pelvis wo con Stat Discontinued Medications Ketorolac Tromethamine (Ketorolac 30 Mg/Ml Vial) 15 mg IM NOW ONE Stop: 06/10/25 15:24 Last Admin: 06/10/25 15:31 Dose: 15 mg Documented By: NICOLAS Ondansetron HCl (Ondansetron 4 Mg/2 Ml Inj) 4 mg IV NOW PRN PRN Reason: Nausea And Vomiting Ondansetron HCl (Ondansetron 4 Mg Odt) 4 mg PO NOW PRN PRN Reason: Nausea And Vomiting Vital Signs Vital signs: Vital Signs - 8 hr 06/10/25 13:06 06/10/25 15:37 Temperature 97.5 F L Pulse Rate 80 78 Respiratory Rate 18 18 Blood Pressure 143/95 H 141/91 H Pulse Oximetry 97 99 Oxygen Delivery Method Room Air Room Air MDM - Abdominal Pain <Rigoberto Abel PA-C - Last Filed: 06/10/25 15:31> Lab Data Labs: Lab Results 06/10/25 Range/Units 13:05 Urine RBC 0-1/hpf D (0-5/HPF) Urine WBC 0-1/hpf (0-5/HPF) Ur Squamous Epith Cells 0-1 /hpf (0-5/HPF) Urine Bacteria Occasional (0-1) (None) Ur Culture Indicated? Cult not indicated Vol Urine Centrifuged 10ml (spun) Point of care testing: Urine Dip Bedside Urine Glucose 100 mg/dl Bedside Urine Bilirubin - Negative Bedside Urine Ketone ++ 40 Urine Specific [place] 1.020 Bedside Urine Occult Blood + Bedside Urine pH 6.0 Bedside Urine Protein + 30 Bedside Urine Urobilinogen - Negative Bedside Urine Nitrite - Negative Bedside Urine Leukocytes - Negative Esterase Imaging Data CT scan - abdomen/pelvis: Radiologist's Impression: [address] [address] [address] Scan Report Signed Patient: Tha Hamilton MR#: [id number] : 1980 Acct:[id number] Age/Sex: 44 / M Date of Service: 06/10/25 Loc: ED Accession Number: [id number] Procedure: CT abdomen pelvis wo con Ordering Provider: Rigoberto Abel PA-C PROCEDURE: CT ABDOMEN PELVIS WO CON INDICATIONS: Possible stone TECHNIQUE: Axial sections were acquired from the lung bases to the pubic symphysis. Coronal and sagittal reformats were performed. For radiation dose reduction, the following was used: automated exposure control, adjustment of mA and/or kV according to patient size. COMPARISON: [facility], CT, CT ABDOMEN PELVIS WO CON, 04/14/2025, 22:35. FINDINGS: Image quality: Diagnostic. Lower Chest: No significant findings. URINARY: Right Kidney: Moderate right-sided hydronephrosis and right perinephric fat stranding. No obstructing stone is seen. Right Ureter: Moderate right hydroureter with periureteral fat stranding. 3 mm stone is noted in distal right ureter approximately 3 cm from right UVJ series 2, image 127 and series 3, image 70. Left Kidney: No stones or hydronephrosis. Left Ureter: No hydroureter. Bladder: Normal wall thickness. No stones. ABDOMEN: Liver: No contour-deforming solid mass. Gallbladder: No radiopaque gallstones or wall thickening. Biliary ducts: No biliary dilation. Pancreas: No ductal dilation. Spleen: Size is within normal limits. Adrenal Glands: No adrenal nodules. Stomach and Bowel: Normal colonic caliber, without significant wall thickening. Appendix is visualized and is within normal limits. Peritoneum: No abnormal intraperitoneal fluid. No free air. Ventral Wall: No hernia. Abdominal Nodes: No enlarged retroperitoneal or mesenteric lymph nodes. Vessels: Aorta and inferior vena cava are normal in size. PELVIS: Pelvic Organs: Unremarkable. Pelvic Nodes: Unremarkable. Miscellaneous: No inguinal hernias are seen. Left inguinal fat stranding and left lower pelvic fat stranding is seen. Finding likely represent post treatment changes. Bones: No aggressive appearing bony lesions. A few scattered sclerotic foci are again seen in visualized osseous structures not significantly changed from prior studies. IMPRESSION: 1. 3 mm right distal ureteral stone approximately 3 cm from right UVJ with upstream moderate right-sided hydronephrosis and hydroureter and right perinephric and periureteral fat stranding. No left-sided renal stones or hydronephrosis. Normal appearing urinary bladder. 2. Likely post treatment changes in left inguinal region and left lower pelvic mesentery. 3. No bowel obstruction or abnormal bowel wall thickening. Normal appendix. No free fluid or free air. Dictated by: Won Diaz M.D. on 06/10/2025 at 14:12 Approved by: Won Diaz M.D. on 06/10/2025 at 14:18 MDM Narrative Medical decision making narrative: ED course: This is a 44-year-old male presenting to the emergency department due to a wave of right-sided abdominal pain suspected to to be due to the kidney stone he was on the right side. CT from a month ago showed a similar stone w ithout any concerning new changes. There was no evidence of appendicitis. No evidence of coexisting UTI. Patient was has not established urologist who has been monitoring this stone with him and they will have continued discussions regarding possible treatment rather than observation that time until stone passes. Patient was lab work was obtained last night while he was in the waiting room but left due to weight times which showed no significant concerning findings. UA was positive for glucose and recommended patient speak with the PCP for possible monitoring for diabetes. CC: Right-sided abdominal pain Complicating co-morbidities: History of testicular cancer, hydrocele Data collected from: Previous notes Medical records reviewed: Patient was seen 2 months ago and this emergency department due to acute onset right flank pain. CT showed an obstructing stone without evidence of UTI. History of testicular cancer, hydrocele, prediabetes. Differential considered, but not limited to: Nephrolithiasis, appendicitis Exam documented above, pertinent findings include: Abdomen nondistended, some right-sided tenderness to palpation Lab Test results independently reviewed as above. Pertinent findings: Lab work from last night was reassuring Imaging studies independently reviewed: CT showed the known right-sided kidney stone Scores Used: None MIPS Elements: None Consultations: None Treatments: Toradol Re-evaluations: None Discussion: Discussed plan with the patient was comfortable with the plan Diagnosis: Kidney stone Disposition: see below, along with detailed discharge instructions that have been reviewed with patient as well as indications for ED re-evaluation and additional outpatient follow up <Anyi Stephenson, DO - Last Filed: 06/10/25 18:30> Lab Data Labs: Lab Results 06/10/25 Range/Units 13:05 Urine RBC 0-1/hpf D (0-5/HPF) Urine WBC 0-1/hpf (0-5/HPF) Ur Squamous Epith Cells 0-1 /hpf (0-5/HPF) Urine Bacteria Occasional (0-1) (None) Ur Culture Indicated? Cult not indicated Vol Urine Centrifuged 10ml (spun) Point of care testing: Urine Dip Bedside Urine Glucose 100 mg/dl Bedside Urine Bilirubin - Negative Bedside Urine Ketone ++ 40 Urine Specific [place] 1.020 Bedside Urine Occult Blood + Bedside Urine pH 6.0 Bedside Urine Protein + 30 Bedside Urine Urobilinogen - Negative Bedside Urine Nitrite - Negative Bedside Urine Leukocytes - Negative Esterase Discharge Plan Departure Patient Disposition: Home Clinical Impression: Kidney stone Activity Restrictions/Additional Instructions: Thank you for coming to the [facility] Emergency Department today. As we discussed a CT scan showed a similar kidney stone that you are aware of. Please continue to be followed by your urologist for monitoring and discussion of possible treatments. You may use the narcotics prescribed for any breakthrough pain. Also recommend you speak to your primary care provider for possibly checking your prediabetes has developed as you did have sugar in your urine. Please return to the emergency department if you develop any significant new or worsening pain, fevers, or any other concerning signs or symptoms. I hope you feel better soon. Please follow up with your primary care provider within a week if your symptoms continue. If you do not have a primary care provider please contact the [facility] Resource line at [phone]. They will ask some questions about your medical history and help you get set up with a provider in the community. Prescriptions: New oxycodone 5 mg capsule 5 mg PO Q8H PRN (Reason: pain) Qty: 20 0RF tamsulosin [Flomax] 0.4 mg capsule 0.4 mg PO BEDTIME Qty: 14 0RF ondansetron 4 mg tablet,disintegrating 4 mg PO Q8H PRN (Reason: nausea and vomiting) Qty: 20 0RF No Action metoprolol tartrate 25 mg tablet 25 mg PO BID Qty: 60 0RF meloxicam 15 mg tablet 15 mg PO DAILY tamsulosin [Flomax] 0.4 mg capsule 0.8 mg PO DAILY Qty: 20 0RF hydrocodone-acetaminophen 5-325 mg tablet 1 tab PO Q4H PRN (Reason: pain) Qty: 18 0RF cholecalciferol (vitamin D3) 50 mcg (2,000 unit) capsule 50 mcg PO DAILY duloxetine 60 mg capsule,delayed release(DR/EC) 60 mg PO DAILY amlodipine 10 mg tablet 10 mg PO DAILY docusate sodium [Colace] 100 mg capsule 100 mg PO DAILY gabapentin 300 mg capsule 300 mg PO BID PRN Referrals: Mariana Doe ARNP [Primary Care Provider, Nursing] Stand Alone Forms: Patient Portal/API, Work Release Note ED Sign-out <Anyi Stephenson DO - Last Filed: 06/10/25 18:30> Cosign ED Attending Cosignature Attestation: I was immediately available in the department for consultation.
--- NOTE | 2025-06-10 13:12 | DI.CT.S_ITS ---
PROCEDURE: CT ABDOMEN PELVIS WO CON INDICATIONS: Possible stone TECHNIQUE: Axial sections were acquired from the lung bases to the pubic symphysis. Coronal and sagittal reformats were performed. For radiation dose reduction, the following was used: automated exposure control, adjustment of mA and/or kV according to patient size. COMPARISON: [facility], CT, CT ABDOMEN PELVIS WO CON, 04/14/2025, 22:35. FINDINGS: Image quality: Diagnostic. Lower Chest: No significant findings. URINARY: Right Kidney: Moderate right-sided hydronephrosis and right perinephric fat stranding. No obstructing stone is seen. Right Ureter: Moderate right hydroureter with periureteral fat stranding. 3 mm stone is noted in distal right ureter approximately 3 cm from right UVJ series 2, image 127 and series 3, image 70. Left Kidney: No stones or hydronephrosis. Left Ureter: No hydroureter. Bladder: Normal wall thickness. No stones. ABDOMEN: Liver: No contour-deforming solid mass. Gallbladder: No radiopaque gallstones or wall thickening. Biliary ducts: No biliary dilation. Pancreas: No ductal dilation. Spleen: Size is within normal limits. Adrenal Glands: No adrenal nodules. Stomach and Bowel: Normal colonic caliber, without significant wall thickening. Appendix is visualized and is within normal limits. Peritoneum: No abnormal intraperitoneal fluid. No free air. Ventral Wall: No hernia. Abdominal Nodes: No enlarged retroperitoneal or mesenteric lymph nodes. Vessels: Aorta and inferior vena cava are normal in size. PELVIS: Pelvic Organs: Unremarkable. Pelvic Nodes: Unremarkable. Miscellaneous: No inguinal hernias are seen. Left inguinal fat stranding and left lower pelvic fat stranding is seen. Finding likely represent post treatment changes. Bones: No aggressive appearing bony lesions. A few scattered sclerotic foci are again seen in visualized osseous structures not significantly changed from prior studies. IMPRESSION: 1. 3 mm right distal ureteral stone approximately 3 cm from right UVJ with upstream moderate right-sided hydronephrosis and hydroureter and right perinephric and periureteral fat stranding. No left-sided renal stones or hydronephrosis. Normal appearing urinary bladder. 2. Likely post treatment changes in left inguinal region and left lower pelvic mesentery. 3. No bowel obstruction or abnormal bowel wall thickening. Normal appendix. No free fluid or free air. Dictated by: Won Diaz M.D. on 06/10/2025 at 14:12 Approved by: Won Diaz M.D. on 06/10/2025 at 14:18
[2025-06-10 13:57] LABS: Culture Indicated Urine Cult Not Indicated
[2025-06-10] MEDS: KETOROLAC 30 MG/ML VIAL 15 MG IM (15:31)
[2025-06-10 15:37] VITALS: BP 141/91; PULSE 78; RESP 18; O2SAT 99
== END 2025-06-10 15:38 | disposition home or self-care (01) ==
PROVIDERS: Emergency Provider Physician Assistant Medical; PCP Nurse Practitioner Primary Care
DX: Z87.442 Personal history of urinary calculi (principal); N20.0 Calculus of kidney; C62.90 Malignant neoplasm of unspecified testis, unspecified whether descended or undescended
CPT/HCPCS: 74176; 81003; 81015; 96372; 99283; 99284; J1885

== ENCOUNTER → 2025-07-06 10:53 | Outpatient (CLI) | payer OTHER, SELFPAY ==
--- NOTE | 2025-07-06 10:55 | DI.CT.S_ITS ---
PROCEDURE: CT ABDOMEN PELVIS W CON INDICATIONS: 44 y/o M w/ h/o testicular cancer, please eval TECHNIQUE: After the administration of intravenous contrast, axial sections acquired from the lung bases to the pubic symphysis. Coronal and sagittal reformats were performed. For radiation dose reduction, the following was used: automated exposure control, adjustment of mA and/or kV according to patient size. COMPARISON: [facility], US, US SCROTUM, 07/20/2024, 16:45. [facility], CT, CT ABDOMEN PELVIS W CON, 05/01/2025, 8:36. FINDINGS: Image quality: Diagnostic. Lower Chest: No significant findings. Small incidental hiatal hernia. ABDOMEN: Liver: Fatty infiltration of the liver. No mass, intrahepatic biliary dilation or cirrhosis. Portal vein is patent. Gallbladder: No radiopaque gallstones or wall thickening. Biliary ducts: No biliary dilation. Pancreas: No ductal dilation. Spleen: Size is within normal limits. Adrenal Glands: No adrenal nodules. Kidneys and Ureters: Worsening moderate right hydronephrosis due to an obstructing 3 mm distal right ureteral stone on image 132. No additional nonobstructing renal stones. No left hydronephrosis or obstructing left ureteral stone. . No solid mass. No complex renal cystic lesion which requires follow up. Stomach and Bowel: Normal colonic caliber, without significant wall thickening. Colon diverticulosis is noted without inflammatory changes concerning for acute diverticulitis. Normal appendix. Peritoneum: No abnormal intraperitoneal fluid. No free air. Ventral Wall: No significant ventral hernia. Abdominal Nodes: No retroperitoneal or mesenteric adenopathy by size criteria. Vessels: Aorta and inferior vena cava are normal in size. Mild atheromatous plaques are noted in the nonaneurysmal abdominal aorta. Retroaortic left renal vein noted. PELVIS: Pelvic Organs: Unremarkable. Bladder: No bladder wall thickening, accounting for underdistention. Architectural distortion in the anterior left urinary bladder noted. Pelvic Nodes: New large 3.9 x 2.1 cm left external iliac node on image 129. Miscellaneous: No inguinal hernia. Status post left orchiectomy. Bones: No aggressive osseous abnormality. Multiple stable sclerotic foci scattered in the bony pelvis and lumbar spine. Overall appearance is similar to the prior study. IMPRESSION: New 3.9 x 2.1 cm left inguinal lymph node conglomerate concerning for malignant lymphadenopathy. Persistent obstructing 3 mm distal right ureteral stone resulting in moderate hydronephrosis. Dictated by: Roro Sanches M.D. on 07/06/2025 at 16:33 Approved by: Roro Sanches M.D. on 07/06/2025 at 16:47
--- NOTE | 2025-07-06 10:55 | DI.RAD.S_ITS ---
PROCEDURE: XR CHEST 2V INDICATIONS: 44 y/o M w/ h/o testicular cancer, please eval TECHNIQUE: 2 views of the chest were acquired. COMPARISON: [facility], CR, XR CHEST 2V, 05/01/2025, 8:21. FINDINGS: Heart, mediastinum and pulmonary vascular: Heart is normal in size and configuration. Mediastinum is unremarkable. Pulmonary vascular is normal. Lungs: Clear Pleural spaces: Normal-no effusions or pneumothorax. Bones and soft tissues: Normal IMPRESSION: No acute cardiopulmonary or metastatic disease Dictated by: Darnell Hunter M.D. on 07/07/2025 at 10:29 Approved by: Darnell Hunter M.D. on 07/07/2025 at 10:30
== END ==
PROVIDERS: PCP Nurse Practitioner Primary Care; Referring Provider Urology; Visit Provider Urology
DX: C62.12 Malignant neoplasm of descended left testis (principal); N13.2 Hydronephrosis with renal and ureteral calculous obstruction; R59.0 Localized enlarged lymph nodes; K44.9 Diaphragmatic hernia without obstruction or gangrene
CPT/HCPCS: 71046; 74177; Q9967

== ENCOUNTER → 2025-07-09 10:52 | Outpatient (CLI) | payer OTHER, SELFPAY | PROVIDERS: PCP Nurse Practitioner Primary Care; Visit Provider Urology | DX: R39.9 Unspecified symptoms and signs involving the genitourinary system (principal) | CPT/HCPCS: 87086 ==

== ENCOUNTER → 2025-07-09 11:36 | Outpatient (CLI) | payer OTHER, SELFPAY ==
[2025-07-09 13:28] LABS: HCG Quantitative /Beta subunit 6.00 mIU/mL (<2.40)
== END ==
PROVIDERS: PCP Nurse Practitioner Primary Care; Referring Provider Urology; Visit Provider Urology
DX: C62.12 Malignant neoplasm of descended left testis (principal); R39.9 Unspecified symptoms and signs involving the genitourinary system; N20.1 Calculus of ureter; Z68.30 Body mass index [BMI] 30.0-30.9, adult
CPT/HCPCS: 36415; 82105; 83615; 84702; 87086; 99214

== ENCOUNTER 2025-07-16 10:00 | Day surgery (SDC) | payer OTHER, SELFPAY ==
[2025-07-07 15:16] VITALS: BMI 30.3
[2025-07-16] VITALS (7 sets, daily range): BP systolic 132–161; BP diastolic 78–90; PULSE 88–117; RESP 9–20; TEMP 36.1–36.7; O2SAT 94–97
[2025-07-16] MEDS: LACTATED RINGERS 1,000 ML 21 ML IV (10:29)
--- NOTE | 2025-07-16 10:54 | PM.PREOP ---
Pre-operative Note COVID-19 COVID-19 status: Not tested Interval Note History & Physical reviewed/Exam performed by Physician: Yes Changes to H&P: No
--- NOTE | 2025-07-16 11:34 | SUR.OPER ---
Lithotomy on padded OR bed, head on pillow, arms secured on padded arm boards at <90 degrees abduction. Legs secured in padded yellow fins stirrups.
--- NOTE | 2025-07-16 12:09 | P.OP_ITS ---
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 Discussed treatment options to include continued medical expulsion therapy (not recommended as he has been doing this for two months) vs cystoscopy, ureteroscopy, laser lithotripsy with ureteral stent placement. Discussed risks of the procedure to include but not limited to pain, bleeding, infection, injury to urethra/bladder/ureter, inability to access the ureter requiring discussion with Interventional Radiology regarding a possible ureteral stent placement in an antegrade fashion vs a possible nephroureteral stent and/or percutaneous nephrostomy tube, urinary tract infection, inability to remove all of the stone in one setting, need for emergent open repair of bladder and/or ureter, need for multiple ureteroscopic interventions necessary to render the patient stone free. Surgeon: Brigido Tejeda Assisted?: No Anesthesia Type: General Operative Notes Findings: Moderate sized right distal ureterolith Closure Type: not applicable Specimen(s): other (ureteral stone) Applied: none Estimated Blood Loss (mL): 2 Blood products transfused: none Procedure in detail: Patient was identified in the preoperative holding area and consent confirmed. He was then brought to the operating room where general anesthesia was induced.? He was placed in the low lithotomy position. He was then prepped and draped in the usual sterile fashion. A surgical timeout was conducted and all were in agreement. Access to the bladder was obtained via a 30 degree cystoscope.? Complete cystoscopy was then performed and no concerning bladder masses or lesions were appreciated.? Bilateral ureteral orifices were easily identified and noted to be orthotopic in nature.? The right ureteral orifice was then cannulated using a 0.035 sensor tip ureteral guidewire and a 5Fr ureteral catheter was advanced over the guidewire and into the distal right ureter.? The guidewire was then removed and a retrograde ureteropyelogram was performed which noted a moderate sized filling defect in the distalureter, consistent with CT findings of a moderate sized stone in this area.? The ureteral guidewire was then readvanced through the ureteral catheter and into the right renal pelvis.? The ureteral catheter was then removed and a semirigid ureteroscope was easily advanced into his right ureter alongside the guidewire and to the level of the stone.? A 200 micron laser fiber was then utilized to perform laser lithotripsy.? All stone fragments >1mm in size were removed via the stone basket and sent for chemical analysis.? The ureter was then directly visualized upon removal of the ure teroscope and noted to be stone free, however, his right distal ureter was noted to be very edematous secondary to the impaction of the aforementioned stone.? A 6Fr multi-length JJ ureteral stent without string was then advanced over the ureteral guidewire.? Upon removal of the guidewire, a good curl was noted in the right renal pelvis and the bladder using fluoroscopy.? The bladder was then drained.? Anesthesia was reversed, he was extubated in the OR and transferred to the PACU in stable condition for recovery. Complications: none Post-operative Condition: stable Disposition: PACU Plan for aftercare: Discharge home from PACU. Will return to Urology clinic on 29 Jul 2025 at 1440 to have a cystoscopy and right ureteral stent removal.
--- NOTE | 2025-07-16 12:22 | DI.RAD.S_ITS ---
PROCEDURE: XR ABDOMEN 1V INDICATIONS: STONE/STENT RIGHT TECHNIQUE: One view of the abdomen acquired. COMPARISON: None. FINDINGS/IMPRESSION: Intraoperative views during right ureteral stent placement. Right hydronephrosis is noted. Please refer to operative note. Dictated by: Rmoel Gonzalez M.D. on 07/16/2025 at 14:47 Approved by: Romel Gonzalez M.D. on 07/16/2025 at 14:48
--- NOTE | 2025-07-16 12:23 | SUR.OPER ---
LASER NOTE: .03 seconds 43 J 14.3 W
== END 2025-07-16 13:15 | disposition home or self-care (01) ==
PROVIDERS: PCP Nurse Practitioner Primary Care; Referring Provider Nurse Practitioner Primary Care; Visit Provider Urology
PROC: (CPT 52356; principal; 2025-07-16 11:30)
DX: N20.1 Calculus of ureter (principal); C62.92 Malignant neoplasm of left testis, unspecified whether descended or undescended
CPT/HCPCS: 52356; 74018; 76000; 82365; C2617; J0330; J0689; J1100; J1885; J2250; J2405; J2704; J3010; J7120; Q9967